=== PATIENT | male | born 1980 | race Caucasian/White ===

== ENCOUNTER 2018-09-27 19:54 | Emergency (ER) | payer OTHER, MEDICAID, SELFPAY ==
[2018-09-27 20:20] VITALS: BP 150/94; PULSE 94; RESP 18; TEMP 36.8; O2SAT 98; BMI 31.2
--- NOTE | 2018-09-27 20:23 | ED_ITS ---
HPI - General Adult General Chief complaint: Diabetic Problem Stated complaint: BLOOD SUGAR IS HIGH Time Seen by Provider: 09/27/18 20:23 Source: patient Mode of arrival: ambulatory Limitations: no limitations History of Present Illness HPI narrative: Patient is a 38-year-old male who states that he has not been dylan gnosed with diabetes however due to a family history he was been concerned about this. He has a old glucometer from a relative and he states that he checks his blood sugar on a regular basis. He states that he normally runs around 200. He states that today he started to not feel very well and he took his blood sugar it was greater than 500. He states he has never been this high. He does not h ave a primary doctor in the area. Related Data Home Medications Medication Instructions Recorded Confirmed Cinnamon 09/27/18 Vitamin D3 09/27/18 acyclovir 09/27/18 esomeprazole sodium 09/27/18 ferrous gluconate 09/27/18 lysine [L-Lysine] 2 tab 09/27/18 magnesium 09/27/18 milk thistle 09/27/18 multivit,Ca,[id number]-lut 09/27/18 [Complete Multi] Previous Rx's Medication Instructions Recorded metformin 500 mg PO BID #120 tab 09/27/18 Allergies Allergy/AdvReac Type Severity Reaction Status Date / Time No Known Drug Allergies Allergy Verified 09/27/18 20:24 Review of Systems Constitutional Reports fatigue, Denies fever(s), Denies headache(s) and Reports malaise ENT Ears, Nose, Mouth, and Throat: Denies headache(s) Cardiovascular Denies chest pain, Denies palpitations and Denies dyspnea Respiratory Denies dyspnea Gastrointestinal Gastrointestinal: Denies abdominal pain and Denies change in stool character Genitourinary Denies dysuria Musculoskeletal Denies myalgias and Denies arthralgias Integumentary/Breasts Denies rash Neurologic Denies headache(s) Endocrine Reports fatigue and Denies palpitations Hematologic/Lymphatic Denies easy bleeding and Denies easy bruising PFSH Medical History Cholecystitis without cholelithiasis (Acute) Diverticulitis (Acute) HTN (hypertension) (Acute) Hiatal hernia (Acute) Hydrocele (Acute) Liver fibrosis (Acute) NIDHI (obstructive sleep apnea) (Acute) Vertigo (Acute) Surgical History H/O hernia repair (Acute) Social History Smoking Status: Never smoker Social History Smoking Status: Never smoker Exam Initial Vital Signs Initial Vital Signs: Vital Signs Temperature 98.2 F 09/27/18 20:20 Pulse Rate 94 H 09/27/18 20:20 Respiratory Rate 18 09/27/18 20:20 Blood Pressure 150/94 H 09/27/18 20:20 Pulse Oximetry 98 09/27/18 20:20 Const General: cooperative, healthy appearing, comfortable, well developed, well groomed and No acute distress Orientation: alert, awake and oriented x3 HENMT Head: normal to inspection and normocephalic Resp Effort & Inspection: normal respiratory effort Auscultation: clear to auscultation bilaterally Cardio Rate: regular rate Rhythm: regular rhythm GI Inspection: non-distended Palpation: soft Skin Lesions: no lesions Rashes: no rashes Neuro General: alert, awake and oriented x3 Cognition: normal cognition Speech: speech normal Extrem General: normal to inspection and capillary refill normal Psych Appearance: grossly normal and well kempt Course Orders Ordered: ED Orders 09/27/18 20:45 Complete Blood Count AUTO DIFF Stat Comprehensive Metabolic Panel Stat Ketones (Beta-Hydroxybutyrate) Stat Lactate (Lactic Acid) Stat Lipase Stat Magnesium Stat Phosphorous Stat 09/27/18 20:55 Venous Blood Gas Stat Discontinued Medications Sodium Chloride (Normal Saline 0.9%) 1,000 mls @ 1,000 mls/hr IV BOLUS ONE Stop: 09/27/18 21:32 Last Infusion: 09/27/18 22:12 Dose: 0 mls/hr Admin: 09/27/18 21:24 Dose: 1,000 mls/hr Vital Signs - 8 hr 09/27/18 20:20 09/27/18 21:26 09/27/18 22:04 Temperature 98.2 F Pulse Rate 94 H 78 77 Respiratory Rate 18 18 Blood Pressure 150/94 H Blood Pressure [Right Arm] 130/87 128/79 Pulse Oximetry 98 97 Medical Decision Making Lab Data Lab results reviewed: Yes I reviewed the patient's lab results. Result diagrams: 09/27/18 20:45 09/27/18 20:45 Lab Results 09/27/18 09/27/18 09/27/18 Range/Units 20:45 20:45 20:45 WBC 5.7 (4.5-11.0) X10^3/uL RBC 5.17 (4.5-5.9) X10^6/uL Hgb 16.0 (13.5-17.5) g/dL Hct 45.7 (41-53) % MCV 88.5 (80-100) fL MCH 30.9 (26-34) PG MCHC 35.0 (30-36) % RDW 12.8 (11.6-14.8) % Plt Count 261 (150-400) X10^3/uL Neut % (Auto) 51.5 (50-75) % Lymph % (Auto) 38.7 (25-40) % [place] % (Auto) 7.0 (3-14) % Eos % (Auto) 1.8 L (2-4) % Baso % (Auto) 1.0 (0-2) % Neut # (Auto) 3000 (2949-1621) /uL Lymph # (Auto) 2200 (3404-5422) /uL [place] # (Auto) 400 (0-900) /uL Eos # (Auto) 100 (0-450) /uL Baso # (Auto) 100 (0-100) /uL VBG pH (7.33-7.43) VBG pCO2 (45-50) mmHg VBG pO2 (35-45) mmHg VBG HCO3 (23-28) mmol/L VBG Total CO2 (24-29) mmol/L VBG O2 Saturation (70-75) % VBG Base Excess (0-4) mmol/L Sodium 136 L (137-145) mmol/L Potassium 4.3 (3.4-5.1) mmol/L Chloride 100 (98-107) mmol/L Carbon Dioxide 23 (22-32) mmol/L BUN 22 H (9-20) mg/dL Creatinine 0.90 (0.66-1.25) mg/dL Estimated GFR > 60.0 (>60) mL/min BUN/Creatinine Ratio 24.4 H (6-22) Glucose 436 H (70-100) mg/dL Lactate 2.6 H (0.7-2.1) mmol/L Calcium 9.2 (8.4-10.2) mg/dL Phosphorus 4.0 (2.5-4.5) mg/dL Magnesium 2.0 (1.6-2.3) mg/dL Total Bilirubin 0.4 (0.2-1.3) mg/dL AST 21 (17-59) IU/L ALT 42 (21-72) IU/L Alkaline Phosphatase 56 (38-126) U/L Total Protein 7.6 (6.3-8.2) g/dL Albumin 4.5 (3.5-5.0) g/dL Globulin 3.1 (1.7-4.1) g/dL Albumin/Globulin Ratio 1.5 (1.0-2.8) Lipase 87 (23-300) U/L Ketones 0.11 (<0.27) mmol/L 09/27/18 Range/Units 20:55 WBC (4.5-11.0) X10^3/uL RBC (4.5-5.9) X10^6/uL Hgb (13.5-17.5) g/dL Hct (41-53) % MCV (80-100) fL MCH (26-34) PG MCHC (30-36) % RDW (11.6-14.8) % Plt Count (150-400) X10^3/uL Neut % (Auto) (50-75) % Lymph % (Auto) (25-40) % [place] % (Auto) (3-14) % Eos % (Auto) (2-4) % Baso % (Auto) (0-2) % Neut # (Auto) (4416-2098) /uL Lymph # (Auto) (4708-0152) /uL [place] # (Auto) (0-900) /uL Eos # (Auto) (0-450) /uL Baso # (Auto) (0-100) /uL VBG pH 7.39 (7.33-7.43) VBG pCO2 38.4 L (45-50) mmHg VBG pO2 47 H (35-45) mmHg VBG HCO3 23 (23-28) mmol/L VBG Total CO2 24 (24-29) mmol/L VBG O2 Saturation 82 H (70-75) % VBG Base Excess -2.0 L (0-4) mmol/L Sodium (137-145) mmol/L Potassium (3.4-5.1) mmol/L Chloride (98-107) mmol/L Carbon Dioxide (22-32) mmol/L BUN (9-20) mg/dL Creatinine (0.66-1.25) mg/dL Estimated GFR (>60) mL/min BUN/Creatinine Ratio (6-22) Glucose (70-100) mg/dL Lactate (0.7-2.1) mmol/L Calcium (8.4-10.2) mg/dL Phosphorus (2.5-4.5) mg/dL Magnesium (1.6-2.3) mg/dL Total Bilirubin (0.2-1.3) mg/dL AST (17-59) IU/L ALT (21-72) IU/L Alkaline Phosphatase (38-126) U/L Total Protein (6.3-8.2) g/dL Albumin (3.5-5.0) g/dL Globulin (1.7-4.1) g/dL Albumin/Globulin Ratio (1.0-2.8) Lipase (23-300) U/L Ketones (<0.27) mmol/L Point of Care Testing Glucose POC 405 Urine Dip Bedside Urine Glucose 1000 mg/dl Bedside Urine Bilirubin - Negative Bedside Urine Ketone - Negative Urine Specific [place] 1.020 Bedside Urine Occult Blood - Negative Bedside Urine pH 6.0 Bedside Urine Protein - Negative Bedside Urine Urobilinogen - Negative Bedside Urine Nitrite - Negative Bedside Urine Leukocytes - Negative Esterase Point of care testing: Point of Care Testing Glucose POC 405 Urine Dip Bedside Urine Glucose 1000 mg/dl Bedside Urine Bilirubin - Negative Bedside Urine Ketone - Negative Urine Specific [place] 1.020 Bedside Urine Occult Blood - Negative Bedside Urine pH 6.0 Bedside Urine Protein - Negative Bedside Urine Urobilinogen - Negative Bedside Urine Nitrite - Negative Bedside Urine Leukocytes - Negative Esterase [facility] Narrative Medical decision making narrative: Patient was hyperglycemic however no signs of DKA. Was not acidotic. PH is 7.391 on his VBG. Patient does not have a primary care doctor in the area he was given a card has a phone number on it where he can call to help with stab wishing a primary doctor. Will send home with a prescription for metformin. Informed him that he does carry the diagnosis of diabetes given his blood sugars today. Informed him that this is a diagnosis that requires follow-up with a primary doctor and is important for him to establish care. He was given return precautions. He expressed understanding and agreement with plan. Discharge Plan Departure Patient Disposition: Home Clinical Impression: Diabetes mellitus with hyperglycemia Qualifiers: Diabetes mellitus type: type 2 Diabetes mellitus correction insulin use: without correction use Qualified Code(s): E11.65 - Type 2 diabetes mellitus with hyperglycemia Discharge Date/Time: 09/27/18 22:14 Interventions: ED Discharge Assessment Last Done: 09/27/18 22:13 Instructions: DI for Diabetes Type 2 Activity Restrictions/Additional Instructions: You do need to make contact with the primary care doctor in the area. You have diabetes and this is a condition that requires regular follow-up with a primary provider. Start taking the metformin as directed. Return to the emergency department for any new or worsening symptoms Prescriptions: New metformin 500 mg tablet 500 mg PO BID Qty: 120 RF: 0 No Action magnesium 250 mg Tablet RF: 0 ferrous gluconate RF: 0 acyclovir 200 mg Capsule RF: 0 esomeprazole sodium 20 mg Recon Soln RF: 0 lysine [L-Lysine] 500 mg Tablet 2 tab RF: 0 Vitamin D3 RF: 0 milk thistle 175 mg Tablet RF: 0 Complete Multi [phone] [id number] Tablet RF: 0 Cinnamon RF: 0
[2018-09-27 20:58] LABS: Add Manual Diff / Slide Review NO; Basophils Absolute Auto 100 /uL (0-100); Eosinophils Absolute Auto 100 /uL (0-450); Eosinophils Percent Auto 1.8 % (2-4); Hematocrit 45.7 % (41-53); Lymphocytes Absolute Auto 2200 /uL (1100-4500); Lymphocytes Percent Auto 38.7 % (25-40); Mean Corpuscular Hemoglobin 30.9 PG (26-34); Mean Corpuscular Volume 88.5 fL (80-100); Monocytes Absolute Auto 400 /uL (0-900); Neutrophils Absolute Auto 3000 /uL (1500-7000); Neutrophils Percent Auto 51.5 % (50-75); Platelet Count 261 X10^3/uL (150-400); Red Blood Cell Count 5.17 X10^6/uL (4.5-5.9); Red Cell Distribution Width 12.8 % (11.6-14.8); White Blood Cell Count 5.7 X10^3/uL (4.5-11.0)
[2018-09-27 21:09] LABS: Lactate (Lactic Acid) 2.6 mmol/L (0.7-2.1)
[2018-09-27 21:11] LABS: Alanine Aminotransferase 42 IU/L (21-72); Albumin 4.5 g/dL (3.5-5.0); Albumin Globulin Ratio 1.5 (1.0-2.8); Alkaline Phosphatase 56 U/L (38-126); Aspartate Aminotransferase 21 IU/L (17-59); BUN Creatinine Ratio 24.4 (6-22); Bilirubin Total 0.4 mg/dL (0.2-1.3); Blood Urea Nitrogen 22 mg/dL (9-20); Calcium 9.2 mg/dL (8.4-10.2); Carbon Dioxide 23 mmol/L (22-32); Chloride 100 mmol/L (98-107); Estimated Glomerular Filt Rate > 60.0 mL/min (>60); Globulin 3.1 g/dL (1.7-4.1); Glucose 436 mg/dL (70-100); HEMOLYSIS 34 (0-50); Lipase 87 U/L (23-300); Potassium 4.3 mmol/L (3.4-5.1); Sodium 136 mmol/L (137-145); Total Protein 7.6 g/dL (6.3-8.2)
[2018-09-27 21:13] LABS: Ketones (Beta-Hydroxybutyrate) 0.11 mmol/L (<0.27)
[2018-09-27 21:14] LABS: HCO3 VBG 23 mmol/L (23-28); PCO2 VBG 38.4 mmHg (45-50); PO2 VBG 47 mmHg (35-45); Total CO2 VBG 24 mmol/L (24-29); pH VBG 7.39 (7.33-7.43)
[2018-09-27 21:15] LABS: Oxygen Saturation VBG 82 % (70-75)
[2018-09-27] MEDS: SODIUM CHLORIDE 0.9% 1,000 ML 1000 ML IV (21:24)
[2018-09-27 21:26] VITALS: BP 130/87; PULSE 78
[2018-09-27 22:04] VITALS: BP 128/79; PULSE 77; RESP 18; O2SAT 97
[2018-09-28 00:54] LABS: Reflexed Lactate in 2 Hours Y
== END 2018-09-27 22:14 | disposition home or self-care (01) ==
PROVIDERS: Emergency Provider Emergency Medicine
DX: E11.65 Type 2 diabetes mellitus with hyperglycemia (principal)
CPT/HCPCS: 36591; 80053; 81003; 82009; 82805; 82962; 83605; 83690; 83735; 84100; 85025; 96360; 99283; 99284

== ENCOUNTER 2018-11-29 00:41 | Emergency (ER) | payer SELFPAY ==
[2018-11-29 00:50] VITALS: BP 166/109; PULSE 72; RESP 18; O2SAT 99; BMI 30.8
--- NOTE | 2018-11-29 01:00 | DI.US.S_ITS ---
PROCEDURE: US ABDOMEN COMPLETE INDICATIONS: SEVERE EPIGASTRIC PAIN TECHNIQUE: Real-time scanning was performed of the abdominal and retroperitoneal organs, with image documentation. COMPARISON: [facility], CT, CT ABDOMEN PELVIS W CON, 11/29/2018, 1:32. FINDINGS: Liver: Liver is mildly enlarged measuring 22.5 cm in long axis. Liver has a diffusely increased echotexture which typically represents fatty infiltration; however, finding is nonspecific and other etiologies including hepatic cirrhosis can have a similar appearance. Please correlate with clinical and laboratory findings. There is a 5.1 x 4.2 x 5.5 cm complex lesion with internal vascularity in the left lobe of the liver which may represent a hemangioma. Small 1.3 x 1.3 x 1.5 cm probable cysts noted in the right lower liver. Gallbladder: Small gallstones are noted.. No gallbladder wall thickening. No pericholecystic fluid. No sonographic Vazquez sign. Biliary ducts: Intrahepatic bile ducts are non-dilated. Extrahepatic bile duct caliber measures 4.3 mm. Normal is 6-7 mm or less in diameter, or 10 mm or less post-cholecystectomy. Pancreas: Visualized portions of the pancreas are sonographically normal. Spleen: Spleen is normal in size and homogeneous in echotexture. Kidneys: Kidneys are normal in size and echotexture. Right kidney measures 12.2 cm long; left kidney measures 13.1 cm long. No hydronephrosis or nephrolithiasis. No solid masses. Aorta: Visualized aorta is normal in caliber at less than 3 cm. Iliacs: Proximal common iliac arteries are normal in caliber at less than 2.5 cm. IVC: Intrahepatic inferior vena cava is patent. Miscellaneous: No free abdominal fluid. IMPRESSION: 1. Hepatomegaly with hepatic steatosis. 2. Cholelithiasis without sonographic evidence of cholecystitis. 3. Bilateral 1 x 4.2 x 5.5 cm probable left hepatic hemangioma. Dictated by: Megan Lam MD, PhD on 11/29/2018 at 9:09 Approved by: Megan Lam MD, PhD on 11/29/2018 at 9:13
--- NOTE | 2018-11-29 01:04 | ED.ABDPAIN ---
HPI - Abdominal Pain General Chief Complaint: Abdominal Pain Stated Complaint: states chest pain Time Seen by Provider: 11/29/18 00:52 Source: patient and family Mode of arrival: ambulatory Limitations: no limitations History of Present Illness HPI narrative: 38-year-old male nonsmoker presents with his in the chief complaint of severe epigastric pain with radiation to his back. He has nausea but denies any vomiting. He has had no fever or chills. He does have a history gallbladder disease. He denies any alcohol or street drugs. His last oral intake was 2 hours prior to his arrival. His pain is worse with motion and improves with rest. MD complaint: abdominal pain Onset (ago): hour(s) Pain Consistency: constant Location: RUQ and epigastric Severity: severe Quality: stabbing and aching Radiation: back Relieving factors: nothing Exacerbating factors: nothing Associated symptoms: nausea Related Data Home Medications Medication Instructions Recorded Confirmed Cinnamon 09/27/18 Vitamin D3 09/27/18 acyclovir 09/27/18 esomeprazole sodium 09/27/18 ferrous gluconate 09/27/18 lysine [L-Lysine] 2 tab 09/27/18 magnesium 09/27/18 milk thistle 09/27/18 multivit,Ca,[id number]-lut 09/27/18 [Complete Multi] Previous Rx's Medication Instructions Recorded metformin 500 mg PO BID #120 tab 09/27/18 hydrocodone-acetaminophen 1 tab PO Q4-6H PRN #10 tab 11/29/18 Allergies Allergy/AdvReac Type Severity Reaction Status Date / Time No Known Drug Allergies Allergy Verified 09/27/18 20:24 Review of Systems Constitutional Denies chills, Denies fever(s), Denies lethargy and Denies weakness Eyes Denies change in vision, Denies eye discharge, Denies irritation and Denies loss of vision ENT Ears, Nose, Mouth, and Throat: Denies change in voice, Denies neck pain and Denies sore throat Cardiovascular Denies chest pain, Denies irregular heart rhythm, Denies lightheadedness, Denies palpitations, Denies dyspnea, Denies dyspnea on exertion and Denies orthopnea Respiratory Denies cough, Denies dyspnea, Denies dyspnea on exertion and Denies wheezing Gastrointestinal Gastrointestinal: Reports abdominal pain, Denies change in bowel habits, Denies diarrhea, Denies nausea and Denies vomiting Genitourinary Denies hematuria, Denies flank pain, Denies urinary incontinence and Denies urinary urgency Musculoskeletal Denies neck pain Integumentary/Breasts Denies pruritus, Denies erythema, Denies rash and Denies wounds Neurologic Denies confusion, Denies loss of vision and Denies weakness Psychiatric Denies anxiety, Denies confusion, Denies depression, Denies homicidal ideation and Denies suicidal ideation Endocrine Denies palpitations Hematologic/Lymphatic Denies easy bruising Allergic/Immunologic Denies wheezing [facility] Medical History Cholecystitis without cholelithiasis (Acute) Diverticulitis (Acute) HTN (hypertension) (Acute) Hiatal hernia (Acute) Hydrocele (Acute) Liver fibrosis (Acute) NIDHI (obstructive sleep apnea) (Acute) Vertigo (Acute) Surgical History H/O hernia repair (Acute) Social History Smoking Status: Never smoker Social History Smoking Status: Never smoker Exam Narrative Exam Narrative: GENERAL: This is a well-nourished, well-developed patient, in mild distress. HEAD: Atraumatic. Normocephalic. No temporal or scalp tenderness. EYES: Pupils equal round and reactive. Extraocular motions intact. No scleral icterus. No injection or drainage. ENT: Nose without bleeding, purulent drainage or septal hematoma. Throat without erythema, tonsillar hypertrophy or exudate. Uvula midline. Airway patent. NECK: Trachea midline. No JVD or lymphadenopathy. Supple, nontender, no meningeal signs. CARDIOVASCULAR: Regular rate and rhythm without murmurs, gallops, or rubs. RESPIRATORY: Clear to auscultation. Breath sounds equal bilaterally. No wheezes, rales, or rhonchi. GASTROINTESTINAL: Abdomen soft, severe epigastric pain, nondistended. No hepato-splenomegaly, or palpable masses. No guarding. EXTREMITIES: No clubbing, cyanosis, or edema. No joint tenderness, effusion, or edema noted. BACK: Nontender without deformity or crepitance. No flank tenderness. NEURO: AOx3. SKIN: No rash or erythema. Initial Vital Signs Initial Vital Signs: Vital Signs Pulse Rate 72 11/29/18 00:50 Respiratory Rate 18 11/29/18 00:50 Blood Pressure 166/109 H 11/29/18 00:50 Pulse Oximetry 99 11/29/18 00:50 Course Orders Ordered: ED Orders 11/29/18 EKG-12 Lead Stat 11/29/18 00:53 Complete Blood Count AUTO DIFF Stat Comprehensive Metabolic Panel Stat Lipase Stat Troponin & CK Cardiac Panel Stat 11/29/18 01:00 US abdomen complete Stat 11/29/18 01:24 CT abdomen pelvis w con Stat 11/29/18 03:13 Troponin I Stat Sodium Chloride (Normal Saline 0.9%) 1,000 mls @ 150 mls/hr IV CONT ADIS Last Admin: 11/29/18 01:17 Dose: 150 mls/hr Discontinued Medications Hydrocodone Bitart/Acetaminophen (Vicodin Prepack) 1 bottle MISC SEEINSTR ONE Stop: 11/29/18 04:43 Al Hydrox/Mg Hydrox/Simethicone 20 ml/ Lidocaine HCl 15 ml 0 ml PO NOW ONE Stop: 11/29/18 02:57 Last Admin: 11/29/18 03:17 Dose: 35 ml Hydromorphone HCl (Dilaudid) 1 mg IV Q15M PRN PRN Reason: Pain, Severe (7-10) Last Admin: 11/29/18 03:17 Dose: 1 mg Admin: 11/29/18 01:17 Dose: 1 mg Ondansetron HCl (Zofran) 4 mg IV NOW ONE Stop: 11/29/18 00:53 Last Admin: 11/29/18 01:16 Dose: 4 mg Pantoprazole Sodium (Protonix) 40 mg IV NOW ONE Stop: 11/29/18 00:53 Last Admin: 11/29/18 01:17 Dose: 40 mg Pantoprazole Sodium (Protonix) 40 mg IV NOW ONE Stop: 11/29/18 02:57 Last Admin: 11/29/18 04:21 Dose: Not Given Vital Signs - 8 hr 11/29/18 00:50 11/29/18 02:26 11/29/18 03:31 Pulse Rate 72 51 L 81 Respiratory Rate 18 18 19 Blood Pressure 166/109 H Blood Pressure [Left Arm] 131/85 135/86 Pulse Oximetry 99 96 97 11/29/18 04:42 Pulse Rate 66 Respiratory Rate 13 Blood Pressure Blood Pressure [Left Arm] 123/80 Pulse Oximetry 98 MDM - Abdominal Pain Medical Records Attestation: I reviewed the patient's medical records. Lab Data Attestation: I reviewed the patient's lab results. Result diagrams: 11/29/18 00:53 11/29/18 00:53 Lab Results 11/29/18 11/29/18 11/29/18 Range/Units 00:53 00:53 00:53 WBC 6.8 (4.5-11.0) X10^3/uL RBC 4.92 (4.5-5.9) X10^6/uL Hgb 15.6 (13.5-17.5) g/dL Hct 43.5 (41-53) % MCV 88.3 (80-100) fL MCH 31.7 (26-34) PG MCHC 35.9 (30-36) % RDW 12.9 (11.6-14.8) % Plt Count 294 (150-400) X10^3/uL Neut % (Auto) 51.9 (50-75) % Lymph % (Auto) 36.0 (25-40) % [place] % (Auto) 8.6 (3-14) % Eos % (Auto) 2.6 (2-4) % Baso % (Auto) 0.9 (0-2) % Neut # (Auto) 3500 (9961-8202) /uL Lymph # (Auto) 2500 (2053-3633) /uL [place] # (Auto) 600 (0-900) /uL Eos # (Auto) 200 (0-450) /uL Baso # (Auto) 100 (0-100) /uL Sodium 138 (137-145) mmol/L Potassium 4.4 (3.4-5.1) mmol/L Chloride 103 (98-107) mmol/L Carbon Dioxide 24 (22-32) mmol/L BUN 16 (9-20) mg/dL Creatinine 1.00 (0.66-1.25) mg/dL Estimated GFR > 60.0 (>60) mL/min BUN/Creatinine Ratio 16.0 (6-22) Glucose 245 H (70-100) mg/dL Calcium 9.4 (8.4-10.2) mg/dL Total Bilirubin 0.4 (0.2-1.3) mg/dL AST 25 (17-59) IU/L ALT 53 (21-72) IU/L Alkaline Phosphatase 59 (38-126) U/L Total Creatine Kinase 72 (55-170) U/L CK-MB (CK-2) TNP CK-MB (CK-2) Rel Index TNP Troponin I < 0.012 (0.01-0.034) ng/mL Total Protein 7.4 (6.3-8.2) g/dL Albumin 4.5 (3.5-5.0) g/dL Globulin 2.9 (1.7-4.1) g/dL Albumin/Globulin Ratio 1.6 (1.0-2.8) Lipase 85 (23-300) U/L 11/29/18 Range/Units 03:13 WBC (4.5-11.0) X10^3/uL RBC (4.5-5.9) X10^6/uL Hgb (13.5-17.5) g/dL Hct (41-53) % MCV (80-100) fL MCH (26-34) PG MCHC (30-36) % RDW (11.6-14.8) % Plt Count (150-400) X10^3/uL Neut % (Auto) (50-75) % Lymph % (Auto) (25-40) % [place] % (Auto) (3-14) % Eos % (Auto) (2-4) % Baso % (Auto) (0-2) % Neut # (Auto) (4434-0662) /uL Lymph # (Auto) (7466-9838) /uL [place] # (Auto) (0-900) /uL Eos # (Auto) (0-450) /uL Baso # (Auto) (0-100) /uL Sodium (137-145) mmol/L Potassium (3.4-5.1) mmol/L Chloride (98-107) mmol/L Carbon Dioxide (22-32) mmol/L BUN (9-20) mg/dL Creatinine (0.66-1.25) mg/dL Estimated GFR (>60) mL/min BUN/Creatinine Ratio (6-22) Glucose (70-100) mg/dL Calcium (8.4-10.2) mg/dL Total Bilirubin (0.2-1.3) mg/dL AST (17-59) IU/L ALT (21-72) IU/L Alkaline Phosphatase (38-126) U/L Total Creatine Kinase (55-170) U/L CK-MB (CK-2) CK-MB (CK-2) Rel Index Troponin I < 0.012 (0.01-0.034) ng/mL Total Protein (6.3-8.2) g/dL Albumin (3.5-5.0) g/dL Globulin (1.7-4.1) g/dL Albumin/Globulin Ratio (1.0-2.8) Lipase (23-300) U/L Imaging Data US - abdomen: Radiologist's impression: Left lobe liver lesion, complex and heterogenous. Cholelithiasis without evidence of biliary obstruction CT scan - abdomen: Radiologist's impression: Left lobe liver lesion has the appearance of a benign hemangioma, patted could stay ptosis, no acute abdominal pelvic pathology identified MDM Narrative Medical decision making narrative: 38-year-old male with sudden epigastric and right upper quadrant pain and radiation to his back. Significant pain on palpation, ultrasound shows cholelithiasis but no signs of infection. Left lobe liver lesion again seen on CT thought to be a benign hemangioma. Labs unremarkable. Discharge Plan Departure Patient Disposition: Home Clinical Impression: Abdominal pain, acute, epigastric Activity Restrictions/Additional Instructions: *You have been diagnosed with [acute epigastric pain, biliary colic versus esophageal spasm] *What to do: *Take medications as directed *Follow up with your primary care provider in 2-3 days, call for an appointment. Let them know you were seen in the Emergency Department and that we ask that you be seen in follow up *Return to ER if you should have any new, worsening or concerning symptoms Prescriptions: New hydrocodone-acetaminophen 5-325 mg tablet 1 tab PO Q4-6H PRN (Reason: pain) Qty: 10 RF: 0 No Action magnesium 250 mg Tablet RF: 0 ferrous gluconate RF: 0 acyclovir 200 mg Capsule RF: 0 esomeprazole sodium 20 mg Recon Soln RF: 0 lysine [L-Lysine] 500 mg Tablet 2 tab RF: 0 Vitamin D3 RF: 0 milk thistle 175 mg Tablet RF: 0 Complete Multi [phone] [id number] Tablet RF: 0 Cinnamon RF: 0 metformin 500 mg tablet 500 mg PO BID Qty: 120 RF: 0
[2018-11-29 01:07] LABS: Add Manual Diff / Slide Review NO; Basophils Absolute Auto 100 /uL (0-100); Basophils Percent Auto 0.9 % (0-2); Eosinophils Absolute Auto 200 /uL (0-450); Eosinophils Percent Auto 2.6 % (2-4); Hematocrit 43.5 % (41-53); Hemoglobin 15.6 g/dL (13.5-17.5); Lymphocytes Absolute Auto 2500 /uL (1100-4500); Mean Corpuscular HGB Conc 35.9 % (30-36); Mean Corpuscular Hemoglobin 31.7 PG (26-34); Mean Corpuscular Volume 88.3 fL (80-100); Monocytes Absolute Auto 600 /uL (0-900); Monocytes Percent Auto 8.6 % (3-14); Neutrophils Absolute Auto 3500 /uL (1500-7000); Neutrophils Percent Auto 51.9 % (50-75); Platelet Count 294 X10^3/uL (150-400); Red Blood Cell Count 4.92 X10^6/uL (4.5-5.9); Red Cell Distribution Width 12.9 % (11.6-14.8); White Blood Cell Count 6.8 X10^3/uL (4.5-11.0)
--- NOTE | 2018-11-29 01:07 | ED_ITS ---
HPI - Abdominal Pain General Chief Complaint: Abdominal Pain Stated Complaint: states chest pain Time Seen by Provider: 11/29/18 00:52 Source: patient and family Mode of arrival: ambulatory Limitations: no limitations History of Present Illness HPI narrative: 38-year-old male nonsmoker presents with his in the chief complaint of severe epigastric pain with radiation to his back. He has nausea but denies any vomiting. He has had no fever or chills. He does have a history gallbladder disease. He denies any alcohol or street drugs. His last oral intake was 2 hours prior to his arrival. His pain is worse with motion and improves with rest. MD complaint: abdominal pain Onset (ago): hour(s) Pain Consistency: constant Location: RUQ and epigastric Severity: severe Quality: stabbing and aching Radiation: back Relieving factors: nothing Exacerbating factors: nothing Associated symptoms: nausea Related Data Home Medications Medication Instructions Recorded Confirmed Cinnamon 09/27/18 Vitamin D3 09/27/18 acyclovir 09/27/18 esomeprazole sodium 09/27/18 ferrous gluconate 09/27/18 lysine [L-Lysine] 2 tab 09/27/18 magnesium 09/27/18 milk thistle 09/27/18 multivit,Ca,faxl-BC-wlvtey-lut 09/27/18 [Complete Multi] Previous Rx's Medication Instructions Recorded metformin 500 mg PO BID #120 tab 09/27/18 hydrocodone-acetaminophen 1 tab PO Q4-6H PRN #10 tab 11/29/18 Allergies Allergy/AdvReac Type Severity Reaction Status Date / Time No Known Drug Allergies Allergy Verified 09/27/18 20:24 Review of Systems Constitutional Denies chills, Denies fever(s), Denies lethargy and Denies weakness Eyes Denies change in vision, Denies eye discharge, Denies irritation and Denies loss of vision ENT Ears, Nose, Mouth, and Throat: Denies change in voice, Denies neck pain and Denies sore throat Cardiovascular Denies chest pain, Denies irregular heart rhythm, Denies lightheadedness, Denies palpitations, Denies dyspnea, Denies dyspnea on exertion and Denies orthopnea Respiratory Denies cough, Denies dyspnea, Denies dyspnea on exertion and Denies wheezing Gastrointestinal Gastrointestinal: Reports abdominal pain, Denies change in bowel habits, Denies diarrhea, Denies nausea and Denies vomiting Genitourinary Denies hematuria, Denies flank pain, Denies urinary incontinence and Denies urinary urgency Musculoskeletal Denies neck pain Integumentary/Breasts Denies pruritus, Denies erythema, Denies rash and Denies wounds Neurologic Denies confusion, Denies loss of vision and Denies weakness Psychiatric Denies anxiety, Denies confusion, Denies depression, Denies homicidal ideation and Denies suicidal ideation Endocrine Denies palpitations Hematologic/Lymphatic Denies easy bruising Allergic/Immunologic Denies wheezing [facility] Medical History Cholecystitis without cholelithiasis (Acute) Diverticulitis (Acute) HTN (hypertension) (Acute) Hiatal hernia (Acute) Hydrocele (Acute) Liver fibrosis (Acute) NIDHI (obstructive sleep apnea) (Acute) Vertigo (Acute) Surgical History H/O hernia repair (Acute) Social History Smoking Status: Never smoker Social History Smoking Status: Never smoker Exam Narrative Exam Narrative: GENERAL: This is a well-nourished, well-developed patient, in mild distress. HEAD: Atraumatic. Normocephalic. No temporal or scalp tenderness. EYES: Pupils equal round and reactive. Extraocular motions intact. No scleral icterus. No injection or drainage. ENT: Nose without bleeding, purulent drainage or septal hematoma. Throat without erythema, tonsillar hypertrophy or exudate. Uvula midline. Airway patent. NECK: Trachea midline. No JVD or lymphadenopathy. Supple, nontender, no meningeal signs. CARDIOVASCULAR: Regular rate and rhythm without murmurs, gallops, or rubs. RESPIRATORY: Clear to auscultation. Breath sounds equal bilaterally. No wheezes, rales, or rhonchi. GASTROINTESTINAL: Abdomen soft, severe epigastric pain, nondistended. No hepato- splenomegaly, or palpable masses. No guarding. EXTREMITIES: No clubbing, cyanosis, or edema. No joint tenderness, effusion, or edema noted. BACK: Nontender without deformity or crepitance. No flank tenderness. NEURO: AOx3. SKIN: No rash or erythema. Initial Vital Signs Initial Vital Signs: Vital Signs Pulse Rate 72 11/29/18 00:50 Respiratory Rate 18 11/29/18 00:50 Blood Pressure 166/109 H 11/29/18 00:50 Pulse Oximetry 99 11/29/18 00:50 Course Orders Ordered: ED Orders 11/29/18 EKG-12 Lead Stat 11/29/18 00:53 Complete Blood Count AUTO DIFF Stat Comprehensive Metabolic Panel Stat Lipase Stat Troponin & CK Cardiac Panel Stat 11/29/18 01:00 US abdomen complete Stat 11/29/18 01:24 CT abdomen pelvis w con Stat 11/29/18 03:13 Troponin I Stat Sodium Chloride (Normal Saline 0.9%) 1,000 mls @ 150 mls/hr IV CONT ADIS Last Admin: 11/29/18 01:17 Dose: 150 mls/hr Discontinued Medications Hydrocodone Bitart/Acetaminophen (Vicodin Prepack) 1 bottle MISC SEEINSTR ONE Stop: 11/29/18 04:43 Al Hydrox/Mg Hydrox/Simethicone 20 ml/ Lidocaine HCl 15 ml 0 ml PO NOW ONE Stop: 11/29/18 02:57 Last Admin: 11/29/18 03:17 Dose: 35 ml Hydromorphone HCl (Dilaudid) 1 mg IV Q15M PRN PRN Reason: Pain, Severe (7-10) Last Admin: 11/29/18 03:17 Dose: 1 mg Admin: 11/29/18 01:17 Dose: 1 mg Ondansetron HCl (Zofran) 4 mg IV NOW ONE Stop: 11/29/18 00:53 Last Admin: 11/29/18 01:16 Dose: 4 mg Pantoprazole Sodium (Protonix) 40 mg IV NOW ONE Stop: 11/29/18 00:53 Last Admin: 11/29/18 01:17 Dose: 40 mg Pantoprazole Sodium (Protonix) 40 mg IV NOW ONE Stop: 11/29/18 02:57 Last Admin: 11/29/18 04:21 Dose: Not Given Vital Signs - 8 hr 11/29/18 00:50 11/29/18 02:26 11/29/18 03:31 Pulse Rate 72 51 L 81 Respiratory Rate 18 18 19 Blood Pressure 166/109 H Blood Pressure [Left Arm] 131/85 135/86 Pulse Oximetry 99 96 97 11/29/18 04:42 Pulse Rate 66 Respiratory Rate 13 Blood Pressure Blood Pressure [Left Arm] 123/80 Pulse Oximetry 98 MDM - Abdominal Pain Medical Records Attestation: I reviewed the patient's medical records. Lab Data Attestation: I reviewed the patient's lab results. Result diagrams: 11/29/18 00:53 11/29/18 00:53 Lab Results 11/29/18 11/29/18 11/29/18 Range/Units 00:53 00:53 00:53 WBC 6.8 (4.5-11.0) X10^3/uL RBC 4.92 (4.5-5.9) X10^6/uL Hgb 15.6 (13.5-17.5) g/dL Hct 43.5 (41-53) % MCV 88.3 (80-100) fL MCH 31.7 (26-34) PG MCHC 35.9 (30-36) % RDW 12.9 (11.6-14.8) % Plt Count 294 (150-400) X10^3/uL Neut % (Auto) 51.9 (50-75) % Lymph % (Auto) 36.0 (25-40) % [place] % (Auto) 8.6 (3-14) % Eos % (Auto) 2.6 (2-4) % Baso % (Auto) 0.9 (0-2) % Neut # (Auto) 3500 (4344-2232) /uL Lymph # (Auto) 2500 (6284-0465) /uL [place] # (Auto) 600 (0-900) /uL Eos # (Auto) 200 (0-450) /uL Baso # (Auto) 100 (0-100) /uL Sodium 138 (137-145) mmol/L Potassium 4.4 (3.4-5.1) mmol/L Chloride 103 (98-107) mmol/L Carbon Dioxide 24 (22-32) mmol/L BUN 16 (9-20) mg/dL Creatinine 1.00 (0.66-1.25) mg/dL Estimated GFR > 60.0 (>60) mL/min BUN/Creatinine Ratio 16.0 (6-22) Glucose 245 H (70-100) mg/dL Calcium 9.4 (8.4-10.2) mg/dL Total Bilirubin 0.4 (0.2-1.3) mg/dL AST 25 (17-59) IU/L ALT 53 (21-72) IU/L Alkaline Phosphatase 59 (38-126) U/L Total Creatine Kinase 72 (55-170) U/L CK-MB (CK-2) TNP CK-MB (CK-2) Rel Index TNP Troponin I < 0.012 (0.01-0.034) ng/mL Total Protein 7.4 (6.3-8.2) g/dL Albumin 4.5 (3.5-5.0) g/dL Globulin 2.9 (1.7-4.1) g/dL Albumin/Globulin Ratio 1.6 (1.0-2.8) Lipase 85 (23-300) U/L 11/29/18 Range/Units 03:13 WBC (4.5-11.0) X10^3/uL RBC (4.5-5.9) X10^6/uL Hgb (13.5-17.5) g/dL Hct (41-53) % MCV (80-100) fL MCH (26-34) PG MCHC (30-36) % RDW (11.6-14.8) % Plt Count (150-400) X10^3/uL Neut % (Auto) (50-75) % Lymph % (Auto) (25-40) % [place] % (Auto) (3-14) % Eos % (Auto) (2-4) % Baso % (Auto) (0-2) % Neut # (Auto) (9642-3307) /uL Lymph # (Auto) (2936-0855) /uL [place] # (Auto) (0-900) /uL Eos # (Auto) (0-450) /uL Baso # (Auto) (0-100) /uL Sodium (137-145) mmol/L Potassium (3.4-5.1) mmol/L Chloride (98-107) mmol/L Carbon Dioxide (22-32) mmol/L BUN (9-20) mg/dL Creatinine (0.66-1.25) mg/dL Estimated GFR (>60) mL/min BUN/Creatinine Ratio (6-22) Glucose (70-100) mg/dL Calcium (8.4-10.2) mg/dL Total Bilirubin (0.2-1.3) mg/dL AST (17-59) IU/L ALT (21-72) IU/L Alkaline Phosphatase (38-126) U/L Total Creatine Kinase (55-170) U/L CK-MB (CK-2) CK-MB (CK-2) Rel Index Troponin I < 0.012 (0.01-0.034) ng/mL Total Protein (6.3-8.2) g/dL Albumin (3.5-5.0) g/dL Globulin (1.7-4.1) g/dL Albumin/Globulin Ratio (1.0-2.8) Lipase (23-300) U/L Imaging Data US - abdomen: Radiologist's impression: Left lobe liver lesion, complex and heterogenous. Cholelithiasis without evidence of biliary obstruction CT scan - abdomen: Radiologist's impression: Left lobe liver lesion has the appearance of a benign hemangioma, patted could stay ptosis, no acute abdominal pelvic pathology identified MDM Narrative Medical decision making narrative: 38-year-old male with sudden epigastric and right upper quadrant pain and radiation to his back. Significant pain on palpation, ultrasound shows cholelithiasis but no signs of infection. Left lobe liver lesion again seen on CT thought to be a benign hemangioma. Labs unremarkable. Discharge Plan Departure Patient Disposition: Home Clinical Impression: Abdominal pain, acute, epigastric Activity Restrictions/Additional Instructions: *You have been diagnosed with [acute epigastric pain, biliary colic versus esophageal spasm] *What to do: *Take medications as directed *Follow up with your primary care provider in 2-3 days, call for an appointment. Let them know you were seen in the Emergency Department and that we ask that you be seen in follow up *Return to ER if you should have any new, worsening or concerning symptoms Prescriptions: New hydrocodone-acetaminophen 5-325 mg tablet 1 tab PO Q4-6H PRN (Reason: pain) Qty: 10 RF: 0 No Action magnesium 250 mg Tablet RF: 0 ferrous gluconate RF: 0 acyclovir 200 mg Capsule RF: 0 esomeprazole sodium 20 mg Recon Soln RF: 0 lysine [L-Lysine] 500 mg Tablet 2 tab RF: 0 Vitamin D3 RF: 0 milk thistle 175 mg Tablet RF: 0 Complete Multi [id number] Tablet RF: 0 Cinnamon RF: 0 metformin 500 mg tablet 500 mg PO BID Qty: 120 RF: 0
[2018-11-29 01:12] LABS: Alanine Aminotransferase 53 IU/L (21-72); Albumin 4.5 g/dL (3.5-5.0); Albumin Globulin Ratio 1.6 (1.0-2.8); Alkaline Phosphatase 59 U/L (38-126); Aspartate Aminotransferase 25 IU/L (17-59); Bilirubin Total 0.4 mg/dL (0.2-1.3); Blood Urea Nitrogen 16 mg/dL (9-20); Calcium 9.4 mg/dL (8.4-10.2); Carbon Dioxide 24 mmol/L (22-32); Chloride 103 mmol/L (98-107); Estimated Glomerular Filt Rate > 60.0 mL/min (>60); Globulin 2.9 g/dL (1.7-4.1); Glucose 245 mg/dL (70-100); HEMOLYSIS 19 (0-50); Lipase 85 U/L (23-300); Potassium 4.4 mmol/L (3.4-5.1); Sodium 138 mmol/L (137-145); Total Protein 7.4 g/dL (6.3-8.2)
[2018-11-29] MEDS: ONDANSETRON 4 MG/2 ML INJ IV (01:16)
[2018-11-29] MEDS: PANTOPRAZOLE 40 MG VIAL IV (01:17)
[2018-11-29] MEDS: SODIUM CHLORIDE 0.9% 1,000 ML 150 ML IV (01:17)
[2018-11-29] MEDS: HYDROMORPHONE 1 MG INJ IV ×2 (01:17→03:17)
--- NOTE | 2018-11-29 01:24 | DI.CT.S_ITS ---
PROCEDURE: CT ABDOMEN PELVIS W CON INDICATIONS: severe abdominal pain, abnormal US TECHNIQUE: After the administration of intravenous contrast, 5 mm thick sections acquired from the diaphragm to the symphysis. 5 mm coronal and sagittal reformats were acquired. For radiation dose reduction, the following was used: automated exposure control, adjustment of mA and/or kV according to patient size. COMPARISON: [facility], US, US ABDOMEN COMPLETE, 11/29/2018, 0:58. FINDINGS: Image quality: Excellent. ABDOMEN: Lung bases: Lung bases are clear. Heart size is normal. Solid organs: Liver is normal in size. 5 cm hemangioma is noted in the lateral segment of the liver. Diffuse fatty infiltration of the liver. Gallbladder is within normal limits. Biliary system is non dilated. Pancreas enhances normally. Spleen is normal in size and enhancement. No adrenal nodules. Kidneys demonstrate normal size and enhancement, without hydronephrosis. A 1 mm nonobstructing stones noted in the lower pole of the left kidney. Peritoneum and bowel: Bowel loops demonstrate normal wall thickness and caliber. No free fluid or air. The appendix is normal. Nodes and vessels: No retroperitoneal or mesenteric adenopathy by size criteria. Aorta and inferior vena cava are normal in size. Miscellaneous: No ventral hernias. PELVIS: Genitourinary: Bladder wall thickness is normal. Miscellaneous: No inguinal hernias or adenopathy. Bones: No suspicious bony lesions. No vertebral body compression fractures. IMPRESSION: 1. Hepatic hemangioma noted in the left lobe. Lesion corresponds to abnormality identified by recent abdominal ultrasound. 2. Hepatic steatosis. 3. No acute disease process. Dictated by: Megan Lam MD, PhD on 11/29/2018 at 8:56 Approved by: Megan Lam MD, PhD on 11/29/2018 at 9:01
[2018-11-29 02:26] VITALS: BP 131/85; PULSE 51; RESP 18; O2SAT 96
[2018-11-29 03:07] LABS: Creatine Kinase 72 U/L (55-170)
[2018-11-29] MEDS: MAG HYDROX/ALUMINUM/SIMETH SUS 20 ML, LIDOCAINE VISCOUS 2% 15 ML PO (03:17)
[2018-11-29 03:20] LABS: Troponin I < 0.012 ng/mL (0.01-0.034)
[2018-11-29 03:31] VITALS: BP 135/86; PULSE 81; RESP 19; O2SAT 97
[2018-11-29 03:46] LABS: Troponin I < 0.012 ng/mL (0.01-0.034)
[2018-11-29 04:42] VITALS: BP 123/80; PULSE 66; RESP 13; O2SAT 98
[2018-11-29] MEDS: HYDROCODONE/ACET 5/325 PREPACK 1 BOTTLE MISC (04:55)
== END 2018-11-29 05:00 | disposition home or self-care (01) ==
PROVIDERS: Emergency Provider Emergency Medicine
DX: R10.13 Epigastric pain (principal); R11.0 Nausea; M54.9 Dorsalgia, unspecified; R10.11 Right upper quadrant pain
CPT/HCPCS: 36591; 74177; 76700; 80053; 82550; 83690; 84484; 85025; 93005; 96361; 96374; 96375; 96376; 99283; 99285; C9113; J1170; J2405; Q9967

== ENCOUNTER 2019-04-07 08:29 | Emergency (ER) | payer OTHER, SELFPAY ==
[2019-04-07 08:41] VITALS: BP 155/92; PULSE 66; RESP 14; O2SAT 99
[2019-04-07 08:52] LABS: Add Manual Diff / Slide Review NO; Basophils Absolute Auto 100 /uL (0-100); Basophils Percent Auto 0.9 % (0-2); Eosinophils Absolute Auto 100 /uL (0-450); Eosinophils Percent Auto 1.6 % (2-4); Hemoglobin 15.7 g/dL (13.5-17.5); Lymphocytes Absolute Auto 2100 /uL (1100-4500); Lymphocytes Percent Auto 28.1 % (25-40); Mean Corpuscular HGB Conc 34.9 % (30-36); Mean Corpuscular Volume 88.8 fL (80-100); Monocytes Absolute Auto 700 /uL (0-900); Neutrophils Absolute Auto 4400 /uL (1500-7000); Neutrophils Percent Auto 60.4 % (50-75); Platelet Count 298 X10^3/uL (150-400); Red Blood Cell Count 5.07 X10^6/uL (4.5-5.9); Red Cell Distribution Width 13.1 % (11.6-14.8); White Blood Cell Count 7.4 X10^3/uL (4.5-11.0)
[2019-04-07 08:59] LABS: Prothrombin Time 11.1 SECONDS (10.1-12.7)
--- NOTE | 2019-04-07 08:59 | ED.CHESTPAIN ---
HPI - Chest Pain General Chief Complaint: Abdominal Pain Stated Complaint: chest pain/abd pain/nausea today Time Seen by Provider: 04/07/19 08:40 Source: patient Mode of arrival: ambulatory Limitations: no limitations History of Present Illness HPI narrative: Who presents with right upper quadrant pain epigastric pain radiating to his chest. He says he says problems with his gallbladder in the past. This started around 5:00 a.m. at 7:00 a.m. it got significantly worse and started going through his chest. He feels nauseous he has not thrown up. He has had issues like this in the past due to insurance issues he has not yet had a cholecystectomy. He denies any shortness of breath. Related Data Home Medications Medication Instructions Recorded Confirmed acyclovir 200 mg PO DIRECTED PRN 09/27/18 04/07/19 cholecalciferol (vitamin D3) 1,000 unit PO DAILY 09/27/18 04/07/19 [Vitamin D3] lysine [L-Lysine] 2 tab PO PRN PRN 09/27/18 04/07/19 multivit,Ca,dlqx-LO-qgydiq-lut 1 tab PO DAILY 09/27/18 04/07/19 [Complete Multi] Berberine 1 dose PO DIRECTED PRN 04/07/19 04/07/19 esomeprazole magnesium 20 mg PO DAILY 04/07/19 04/07/19 Allergies Allergy/AdvReac Type Severity Reaction Status Date / Time No Known Drug Allergies Allergy Verified 09/27/18 20:24 Review of Systems Review of Systems ROS Unobtainable: All systems reviewed & are unremarkable except as noted in HPI and below Constitutional Constitutional: Denies chills, Denies fever(s), Denies lethargy and Denies weakness Eyes Eyes: Denies change in vision, Denies eye discharge, Denies irritation and Denies loss of vision ENT Ears, Nose, Mouth, and Throat: Denies change in voice, Denies neck pain and Denies sore throat Cardiovascular Cardiovascular: Reports chest pain, Denies dyspnea and Denies dyspnea on exertion Respiratory Respiratory: Denies cough, Denies dyspnea, Denies dyspnea on exertion and Denies wheezing Gastrointestinal Gastrointestinal: Reports as per HPI, Reports abdominal pain and Reports nausea Genitourinary Genitourinary: Denies hematuria, Denies flank pain, Denies urinary incontinence and Denies urinary urgency Musculoskeletal Musculoskeletal: Denies neck pain Integumentary/Breasts Skin/Breast: Denies pruritus, Denies erythema, Denies rash and Denies wounds Neurologic Neurologic: Denies loss of vision and Denies weakness Allergic/Immunologic Allergic/Immunologic: Denies wheezing [facility] Medical History Cholecystitis without cholelithiasis (Acute) Diverticulitis (Acute) Hiatal hernia (Acute) HTN (hypertension) (Acute) Hydrocele (Acute) Liver fibrosis (Acute) NIDHI (obstructive sleep apnea) (Acute) Vertigo (Acute) Surgical History H/O hernia repair (Acute) Social History Smoking Status: Never smoker Social History Smoking Status: Never smoker Exam Initial Vital Signs Initial Vital Signs: Vital Signs Pulse Rate 66 04/07/19 08:41 Respiratory Rate 14 04/07/19 08:41 Blood Pressure 155/92 H 04/07/19 08:41 Pulse Oximetry 99 04/07/19 08:41 GENERAL: Patient appears in pain HEENT: Head atraumatic,EOMI, pupils reactive, face symmetric, moist mucous membranes CARDIOVASCULAR: Regular rate and rhythm without murmurs, rubs or gallops. RESPIRATORY: Breath sounds equal bilaterally, no wheezes rales or rhonchi. ABDOMEN: Soft, tender right upper quadrant positive Vazquez sign. No lower abdominal pain : No CVA tenderness EXTREMITIES: Normal range of motion, no clubbing or edema. Neurovascularly intact NEUROLOGICAL: Alert and oriented x4.Normal gait and speech. SKIN: Warm, dry, no laceration, no petechiae, no rashes or lesions. Course Orders Ordered: ED Orders 04/07/19 08:40 EKG-12 Lead Stat 04/07/19 08:43 Complete Blood Count AUTO DIFF Stat Comprehensive Metabolic Panel Stat Lipase Stat Partial Thromboplastin Time Stat Prothrombin Time INR Stat 04/07/19 08:58 US abdomen limited Stat Discontinued Medications Ketorolac Tromethamine (Toradol) 30 mg IV NOW ONE Stop: 04/07/19 08:59 Last Admin: 04/07/19 09:23 Dose: 30 mg Documented by: CHRISTOPHE Morphine Sulfate (Morphine) 4 mg IV NOW ONE Stop: 04/07/19 09:50 Last Admin: 04/07/19 10:16 Dose: 4 mg Documented by: ANUJA Ondansetron HCl (Zofran) 4 mg IV NOW ONE Stop: 04/07/19 08:59 Last Admin: 04/07/19 09:23 Dose: 4 mg Documented by: CHRISTOPHE Vital Signs Vital signs: Vital Signs - 8 hr 04/07/19 08:41 04/07/19 10:07 04/07/19 11:03 Pulse Rate 66 47 L 52 L Respiratory Rate 14 11 L 15 Blood Pressure 155/92 H Blood Pressure [Left Arm] 111/63 115/72 Pulse Oximetry 99 94 98 04/07/19 12:00 Pulse Rate 48 L Respiratory Rate 9 L Blood Pressure Blood Pressure [Left Arm] 131/84 Pulse Oximetry 96 MDM - Chest Pain Lab Data Attestation: I reviewed the patient's lab results. Result diagrams: 04/07/19 08:43 04/07/19 08:43 Labs: Lab Results 04/07/19 04/07/19 04/07/19 Range/Units 08:43 08:43 08:43 WBC 7.4 (4.5-11.0) X10^3/uL RBC 5.07 (4.5-5.9) X10^6/uL Hgb 15.7 (13.5-17.5) g/dL Hct 45.0 (41-53) % MCV 88.8 (80-100) fL MCH 31.0 (26-34) PG MCHC 34.9 (30-36) % RDW 13.1 (11.6-14.8) % Plt Count 298 (150-400) X10^3/uL Neut % (Auto) 60.4 (50-75) % Lymph % (Auto) 28.1 (25-40) % [place] % (Auto) 9.0 (3-14) % Eos % (Auto) 1.6 L (2-4) % Baso % (Auto) 0.9 (0-2) % Neut # (Auto) 4400 (3954-1428) /uL Lymph # (Auto) 2100 (9424-6152) /uL [place] # (Auto) 700 (0-900) /uL Eos # (Auto) 100 (0-450) /uL Baso # (Auto) 100 (0-100) /uL PT 11.1 (10.1-12.7) SECONDS INR 1.0 (0.9-1.3) APTT 32 (26.4-36.2) SECONDS Sodium 141 (137-145) mmol/L Potassium 4.1 (3.4-5.1) mmol/L Chloride 102 (98-107) mmol/L Carbon Dioxide 25 (22-32) mmol/L BUN 13 (9-20) mg/dL Creatinine 0.80 (0.66-1.25) mg/dL Estimated GFR > 60.0 (>60) mL/min BUN/Creatinine Ratio 16.3 (6-22) Glucose 189 H (70-100) mg/dL Calcium 9.5 (8.4-10.2) mg/dL Total Bilirubin 0.5 (0.2-1.3) mg/dL AST 33 (17-59) IU/L ALT 64 (21-72) IU/L Alkaline Phosphatase 54 (38-126) U/L Total Protein 7.7 (6.3-8.2) g/dL Albumin 4.7 (3.5-5.0) g/dL Globulin 3.0 (1.7-4.1) g/dL Albumin/Globulin Ratio 1.6 (1.0-2.8) Lipase 85 (23-300) U/L Urine Dip Bedside Urine Glucose Negative Bedside Urine Bilirubin - Negative Bedside Urine Ketone - Negative Urine Specific Scott 1.015 Bedside Urine Occult Blood - Negative Bedside Urine pH 7.0 Bedside Urine Protein - Negative Bedside Urine Urobilinogen - Negative Bedside Urine Nitrite - Negative Bedside Urine Leukocytes - Negative Esterase Imaging Data US - abdomen: Radiologist's impression: PROCEDURE: US ABDOMEN LIMITED INDICATIONS: RUQ PAIN TECHNIQUE: Real-time scanning was performed of the abdominal and retroperitoneal organs, with image documentation. COMPARISON: [facility], US, US ABDOMEN COMPLETE, 11/29/2018, 0:58. [facility], CT, CT ABDOMEN PELVIS W CON, 11/29/2018, 1:32. FINDINGS: Liver: Liver is prominent in size and demonstrates coarse and diffusely increased echotexture. There is a 5.5 x 5.0 x 3.8 cm mass in the left hepatic lobe (previously 5.1 x 5.5 x 2.2 cm). This was previously evaluated with CT and showed peripheral nodular enhancement compatible with a hemangioma. A 1.5 cm hypoechoic nodule is seen adjacent to the gallbladder fossa, probably a cyst. It is unchanged in size. Gallbladder: Gallbladder is distended. There is sludge in gallbladder lumen. No gallbladder wall thickening or pericholecystic fluid collection. The sonographic Vazquez's sign is negative. Biliary ducts: Intrahepatic bile ducts are non-dilated. Extrahepatic bile duct caliber measures 5.6 mm. Normal is 6-7 mm or less in diameter, or 10 mm or less post-cholecystectomy. Pancreas: Visualized portions of the pancreas are sonographically normal. Spleen: Spleen is normal in size and homogeneous in echotexture. Kidneys: Visualized right kidney is normal without hydronephrosis. Miscellaneous: No free abdominal fluid. IMPRESSION: 1. Diffusely increased hepatic echotexture. This finding is most likely secondary to hepatic fatty infiltration although other hepatocellular disease may have a similar appearance. Recommend clinical correlation. 2. A 5.5 x 5.0 x 3.8 cm hepatic hemangioma in the left hepatic lobe. 3. A 1.5 cm low-density nodule near the gall bladder fossa, probably a small hepatic cyst. 4. Gallbladder sludge. The bladder is mildly distended, which could be related to fasting. No gallbladder wall thickening or pericholecystic fluid collection. The sonographic Vazquez's sign was negative. Dictated by: Marily Murphy M.D. on 04/07/2019 at 10:08 ECG Data Attestation: I personally reviewed and interpreted this ECG as follows: Interpretation: Normal sinus rhythm rate 61 p.r. interval 154 QRS [address] changes no T-wave inversions MDM Narrative Medical decision making narrative: Patient has no leukocytosis normal bilirubin normal LFTs. He does have sludge in his gallbladder and he was quite painful in his right upper quadrant. I did discuss case with surgery Dr. Marina, who recommends outpatient follow-up and elective cholecystectomy. I have talked this over with patient. He is agreeable and will call surgery for appointment. I have discussed with him warning signs and when to return to the ER. Overall his pain is much better after the morphine. Discharge Plan Departure Patient Disposition: Home Clinical Impression: Cholecystitis Discharge Date/Time: 04/07/19 12:14 Instructions: DI for Cholecystitis Activity Restrictions/Additional Instructions: *You have been diagnosed with cholecystitis *What to do: You will need her gallbladder removed. Planning and doing an elective surgery has less complications. *Continue to take medications as directed *Follow up with your primary care provider in 2-3 days, call surgery to schedule an appointment and then he will schedule surgery *Return to ER if you should have increasing right upper quadrant pain fevers persistent vomiting or any new, worsening or concerning symptoms Prescriptions: No Action acyclovir 200 mg Capsule 200 mg PO DIRECTED PRN (Reason: breakouts) RF: 0 lysine [L-Lysine] 500 mg Tablet 2 tab PO PRN PRN (Reason: breakaout) RF: 0 cholecalciferol (vitamin D3) [Vitamin D3] 1,000 unit Capsule 1,000 unit PO DAILY RF: 0 Complete Multi [id number] Tablet 1 tab PO DAILY RF: 0 esomeprazole magnesium 20 mg Tablet,Delayed Release (Dr/Ec) 20 mg PO DAILY RF: 0 Berberine 1 dose PO DIRECTED PRN (Reason: breakout) RF: 0 Referrals: Deandre Marina MD [Physician] - Dannielle Patton MD [Primary Care Provider] -
[2019-04-07 09:02] LABS: PTT Partial Thromboplastin Tim 32 SECONDS (26.4-36.2)
[2019-04-07 09:05] LABS: Alanine Aminotransferase 64 IU/L (21-72); Albumin 4.7 g/dL (3.5-5.0); Albumin Globulin Ratio 1.6 (1.0-2.8); Alkaline Phosphatase 54 U/L (38-126); Aspartate Aminotransferase 33 IU/L (17-59); BUN Creatinine Ratio 16.3 (6-22); Bilirubin Total 0.5 mg/dL (0.2-1.3); Blood Urea Nitrogen 13 mg/dL (9-20); Calcium 9.5 mg/dL (8.4-10.2); Carbon Dioxide 25 mmol/L (22-32); Chloride 102 mmol/L (98-107); Estimated Glomerular Filt Rate > 60.0 mL/min (>60); Glucose 189 mg/dL (70-100); HEMOLYSIS < 15 (0-50); Lipase 85 U/L (23-300); Potassium 4.1 mmol/L (3.4-5.1); Sodium 141 mmol/L (137-145); Total Protein 7.7 g/dL (6.3-8.2)
[2019-04-07] MEDS: KETOROLAC 60 MG/2 ML VIAL 30 MG IV (09:23)
[2019-04-07] MEDS: ONDANSETRON 4 MG/2 ML INJ IV (09:23)
[2019-04-07 10:07] VITALS: BP 111/63; PULSE 47; RESP 11; O2SAT 94
[2019-04-07] MEDS: MORPHINE 4 MG/ML INJ IV (10:16)
[2019-04-07 11:03] VITALS: BP 115/72; PULSE 52; RESP 15; O2SAT 98
[2019-04-07 12:00] VITALS: BP 131/84; PULSE 48; RESP 9; O2SAT 96
== END 2019-04-07 12:14 | disposition home or self-care (01) ==
PROVIDERS: Emergency Provider Emergency Medicine; PCP Student in an Organized Health Care Education/Training Program
DX: K81.9 Cholecystitis, unspecified (principal)
CPT/HCPCS: 36591; 76705; 80053; 81003; 83690; 85025; 85610; 85730; 93005; 93010; 96374; 96375; 99283; 99285; J1885; J2270; J2405

== ENCOUNTER 2019-04-16 12:12 | Inpatient (IN) | payer OTHER, SELFPAY ==
[2019-04-16] VITALS (7 sets, daily range): BP systolic 109–147; BP diastolic 69–89; PULSE 48–62; RESP 16–18; TEMP 36.2–36.4; O2SAT 93–99; BMI 31.5
--- NOTE | 2019-04-16 12:23 | DI.RAD.S_ITS ---
PROCEDURE: XR CHEST 1V INDICATIONS: chest pain TECHNIQUE: One view of the chest was acquired. COMPARISON: None. FINDINGS: Surgical changes and devices: None. Lungs and pleura: Lungs are clear. No pleural effusions or pneumothorax. Mediastinum: Mediastinal contours appear normal. Heart size is normal. Bones and chest wall: No suspicious bony lesions. Overlying soft tissues appear unremarkable. IMPRESSION: No evidence acute pulmonary process. Dictated by: Km Marrero M.D. on 04/16/2019 at 13:02 Approved by: Km Marrero M.D. on 04/16/2019 at 13:02
--- NOTE | 2019-04-16 12:24 | DI.US.S_ITS ---
PROCEDURE: US ABDOMEN LIMITED INDICATIONS: RIGHT UPPER QUADRANT PAIN TECHNIQUE: Real-time focused scanning was performed of the abdomen, with image documentation. COMPARISON: [facility], , US ABDOMEN LIMITED, 04/07/2019, 9:55. FINDINGS: Diffuse hepatic steatosis. Gallbladder is distended. There is minimal edema in the wall of the gallbladder. There are small stones in the gallbladder. There is a positive sonographic Vazquez sign. IMPRESSION: Findings are suspicious for acute cholecystitis. Clinical correlation suggested. Dictated by: Km Marrero M.D. on 04/16/2019 at 13:02 Approved by: Km Marrero M.D. on 04/16/2019 at 13:06
[2019-04-16 12:39] LABS: Add Manual Diff / Slide Review NO; Basophils Absolute Auto 100 /uL (0-100); Eosinophils Absolute Auto 200 /uL (0-450); Eosinophils Percent Auto 2.1 % (2-4); Hematocrit 42.8 % (41-53); Hemoglobin 15.3 g/dL (13.5-17.5); Lymphocytes Absolute Auto 2100 /uL (1100-4500); Lymphocytes Percent Auto 27.4 % (25-40); Mean Corpuscular HGB Conc 35.7 % (30-36); Mean Corpuscular Hemoglobin 31.3 PG (26-34); Mean Corpuscular Volume 87.5 fL (80-100); Monocytes Absolute Auto 600 /uL (0-900); Monocytes Percent Auto 8.3 % (3-14); Neutrophils Absolute Auto 4700 /uL (1500-7000); Neutrophils Percent Auto 61.2 % (50-75); Platelet Count 272 X10^3/uL (150-400); Red Blood Cell Count 4.89 X10^6/uL (4.5-5.9); White Blood Cell Count 7.7 X10^3/uL (4.5-11.0)
[2019-04-16] MEDS: PANTOPRAZOLE 40 MG VIAL IV ×2 (12:40→20:45)
[2019-04-16] MEDS: ONDANSETRON 4 MG/2 ML INJ IV ×2 (12:40→16:36)
[2019-04-16] MEDS: SODIUM CHLORIDE 0.9% 1,000 ML 1000 ML IV ×2 (12:40→16:37)
[2019-04-16 12:45] LABS: INR 0.9 (0.9-1.3); Prothrombin Time 10.7 SECONDS (10.1-12.7)
[2019-04-16 12:48] LABS: PTT Partial Thromboplastin Tim 32 SECONDS (26.4-36.2)
[2019-04-16 12:51] LABS: Alanine Aminotransferase 205 IU/L (21-72); Albumin 4.6 g/dL (3.5-5.0); Albumin Globulin Ratio 1.6 (1.0-2.8); Alkaline Phosphatase 98 U/L (38-126); Amylase 136 U/L (30-110); Aspartate Aminotransferase 48 IU/L (17-59); BUN Creatinine Ratio 18.6 (6-22); Bilirubin Total 0.5 mg/dL (0.2-1.3); Blood Urea Nitrogen 13 mg/dL (9-20); Calcium 9.3 mg/dL (8.4-10.2); Carbon Dioxide 27 mmol/L (22-32); Chloride 100 mmol/L (98-107); Creatine Kinase 75 U/L (55-170); Estimated Glomerular Filt Rate > 60.0 mL/min (>60); Globulin 2.8 g/dL (1.7-4.1); Glucose 162 mg/dL (70-100); HEMOLYSIS < 15 (0-50); Lipase 782 U/L (23-300); Sodium 140 mmol/L (137-145); Total Protein 7.4 g/dL (6.3-8.2)
[2019-04-16 12:55] LABS: B Type Natriuretic Peptide < 100 (<100)
[2019-04-16] MEDS: MORPHINE 4 MG/ML INJ IV ×2 (12:58→13:44)
[2019-04-16 13:02] LABS: Troponin I < 0.012 ng/mL (0.01-0.034)
--- NOTE | 2019-04-16 13:35 | ED.CHESTPAIN ---
HPI - Chest Pain <WALI Delarosa - Last Filed: 04/16/19 18:30> General Chief Complaint: Chest Pain Stated Complaint: chest pressure and abdominal pain x5 days Time Seen by Provider: 04/16/19 12:16 Source: patient and family Mode of arrival: ambulatory Limitations: no limitations History of Present Illness HPI narrative: The patient is a 38-year-old male nonsmoker with history of liver fibrosis sleep apnea and vertigo who presents with a chief complaint of right upper quadrant pain and chest pain. He states that this has been consistent since his previous visit to this department on 04/07/2019. He was noted to have sludge in his gallbladder at this time, and was referred to surgery. He has a follow-up appoint with Dr. Erazo tomorrow for workup of elective cholecystectomy. Pain is substernal, radiating from his right upper quadrant. He denies any fevers, states he is eating and drinking well. Last solid intake was 12 hours ago, last liquid intake of water was several hours ago. Related Data Home Medications Medication Instructions Recorded Confirmed acyclovir 200 mg PO DIRECTED PRN 09/27/18 04/07/19 cholecalciferol (vitamin D3) 1,000 unit PO DAILY 09/27/18 04/07/19 [Vitamin D3] lysine [L-Lysine] 2 tab PO PRN PRN 09/27/18 04/07/19 multivit,Ca,idcl-TW-hinlqc-lut 1 tab PO DAILY 09/27/18 04/07/19 [Complete Multi] Berberine 1 dose PO DIRECTED PRN 04/07/19 04/07/19 esomeprazole magnesium 20 mg PO DAILY 04/07/19 04/07/19 Allergies Allergy/AdvReac Type Severity Reaction Status Date / Time No Known Drug Allergies Allergy Verified 04/16/19 12:31 Review of Systems <WALI Delarosa - Last Filed: 04/16/19 18:30> Review of Systems Narrative: GENERAL: Denies chills, fatigue, malaise, fever, sweats. HEENT: Denies sinus pain, ear pain, sore throat, difficulty swallowing, dizziness. RESPIRATORY: Denies dyspnea, cough, wheezing, hemoptysis, sputum. CARDIOVASCULAR: See HPI GASTROINTESTINAL: See HPI : Denies dysuria, frequency, incontinence, hematuria, urinary retention. MUSCULOSKELETAL: denies weakness, joint pain, or bony pain SKIN: Denies rash, skin lesions, or other NEUROLOGIC: Denies weakness, headache, numbness, change in speech, confusion, seizures, incoordination. PSYCHIATRIC: No concerning psychosocial issues. 12 point review of systems is negative except for those stated above PFSH <WALI Delarosa - Last Filed: 04/16/19 18:30> Medical History Cholecystitis without cholelithiasis (Acute) Diverticulitis (Acute) Hiatal hernia (Acute) HTN (hypertension) (Acute) Hydrocele (Acute) Liver fibrosis (Acute) NIDHI (obstructive sleep apnea) (Acute) Vertigo (Acute) Surgical History H/O hernia repair (Acute) Social History household members: significant other Smoking Status: Never smoker alcohol intake: current Social History household members: significant other Smoking Status: Never smoker alcohol intake: current Exam <WALI Delarosa - Last Filed: 04/16/19 18:30> Narrative Exam Narrative: GENERAL: This is a well-nourished, well-developed patient, appears uncomfortable HEAD: Atraumatic. Normocephalic. No temporal or scalp tenderness. EYES: Pupils equal round and reactive. Extraocular motions intact. No scleral icterus. No injection or drainage. ENT: Nose without bleeding, purulent drainage or septal hematoma. Throat without erythema, tonsillar hypertrophy or exudate. Uvula midline. Airway patent. NECK: Trachea midline. No JVD or lymphadenopathy. Supple, nontender, no meningeal signs. CARDIOVASCULAR: Regular rate and rhythm without murmurs, gallops, or rubs. RESPIRATORY: Clear to auscultation. Breath sounds equal bilaterally. No wheezes, rales, or rhonchi. No cough. No stridor. No increased respiratory effort. No accessory muscle use. GASTROINTESTINAL: Abdomen soft, nondistended. No hepato-splenomegaly, or palpable masses. No guarding. Right upper quadrant pain to palpation. Positive Vazquez sign. Pain to epigastric palpation. EXTREMITIES: No clubbing, cyanosis, or edema. No joint tenderness, effusion, or edema noted. BACK: Nontender without deformity or crepitance. No flank tenderness. NEURO: AOx3. SKIN: No rash or erythema. Initial Vital Signs Initial Vital Signs: Vital Signs Temperature 97.4 F L 04/16/19 12:25 Pulse Rate 62 04/16/19 12:25 Respiratory Rate 17 04/16/19 12:25 Blood Pressure 135/89 04/16/19 12:25 Pulse Oximetry 99 04/16/19 12:25 <Suraj Wiggins DO - Last Filed: 04/16/19 22:04> Initial Vital Signs Initial Vital Signs: Vital Signs Temperature 97.4 F L 04/16/19 12:25 Pulse Rate 62 04/16/19 12:25 Respiratory Rate 17 04/16/19 12:25 Blood Pressure 135/89 04/16/19 12:25 Pulse Oximetry 99 04/16/19 12:25 Course <DEE eDlarosa - Last Filed: 04/16/19 18:30> Orders Ordered: ED Orders 04/16/19 16:17 Consult to General Surgery Routine Enoxaparin Sodium (Lovenox) 40 mg SUBCUT DAILY [facility] Hydromorphone HCl (Dilaudid) 1 mg IV Q3H PRN PRN Reason: Pain, Moderate (4-6) Last Admin: 04/16/19 20:40 Dose: 1 mg Documented by: SHERLYN Sodium Chloride (Normal Saline 0.9%) 1,000 mls @ 250 mls/hr IV CONT [facility] Last Admin: 04/16/19 18:06 Dose: 250 mls/hr Documented by: SHERLYN Naloxone HCl (Narcan) 0.2 mg IV Q2MIN PRN PRN Reason: Opiate Reversal Ondansetron HCl (Zofran) 4 mg IV Q6HR PRN PRN Reason: Nausea And Vomiting Pantoprazole Sodium (Protonix) 40 mg IV BID [facility] Last Admin: 04/16/19 20:45 Dose: 40 mg Documented by: SHERLYN Discontinued Medications Hydromorphone HCl (Dilaudid) 1 mg IV NOW ONE Stop: 04/16/19 14:53 Last Admin: 04/16/19 14:56 Dose: 1 mg Documented by: MEG Hydromorphone HCl (Dilaudid) 1 mg IV NOW ONE Stop: 04/16/19 16:22 Last Admin: 04/16/19 16:37 Dose: 1 mg Documented by: MEG Sodium Chloride (Normal Saline 0.9%) 1,000 mls @ 1,000 mls/hr IV BOLUS ONE Stop: 04/16/19 13:23 Last Infusion: 04/16/19 13:51 Dose: 0 mls/hr Documented by: Admin: 04/16/19 12:40 Dose: 1,000 mls/hr Documented by: MEG Sodium Chloride (Normal Saline 0.9%) 1,000 mls @ 1,000 mls/hr IV BOLUS ONE Stop: 04/16/19 16:14 Last Infusion: 04/16/19 17:35 Dose: 0 mls/hr Documented by: Admin: 04/16/19 16:37 Dose: 1,000 mls/hr Documented by: MEG HYDROMORPHONE REFERENCE INVESTIGATOR (6MG/30ML) (Dilaudid Aircraft Body Repairer (6mg/30ml)) 6 mg in 30 mls @ 0.5 mls/hr IV Q8HR PRN PRN Reason: Pain, Moderate (4-6) Influenza Virus Vaccine (Flu Vaccine) 0.5 ml IM .ONCE ONE Stop: 04/16/19 18:01 Morphine Sulfate (Morphine) 4 mg IV NOW ONE Stop: 04/16/19 12:46 Last Admin: 04/16/19 12:58 Dose: 4 mg Documented by: MEG Morphine Sulfate (Morphine) 4 mg IV NOW ONE Stop: 04/16/19 13:29 Last Admin: 04/16/19 13:44 Dose: 4 mg Documented by: MEG Naloxone HCl (Narcan) 0.2 mg IV Q2MIN PRN; Protocol PRN Reason: Opiate Reversal Ondansetron HCl (Zofran) 4 mg IV NOW ONE Stop: 04/16/19 12:25 Last Admin: 04/16/19 12:40 Dose: 4 mg Documented by: MEG Ondansetron HCl (Zofran) 4 mg IV NOW ONE Stop: 04/16/19 16:22 Last Admin: 04/16/19 16:36 Dose: 4 mg Documented by: MEG Pantoprazole Sodium (Protonix) 40 mg IV NOW ONE Stop: 04/16/19 12:25 Last Admin: 04/16/19 12:40 Dose: 40 mg Documented by: MEG Pantoprazole Sodium (Protonix) 20 mg PO 0600 [facility] Vital Signs Vital signs: Vital Signs - 8 hr 04/16/19 14:52 Pulse Rate 58 L Respiratory Rate 18 Blood Pressure [Left Arm] 109/69 Pulse Oximetry 99 <Suraj Wiggins DO - Last Filed: 04/16/19 22:04> Orders Ordered: ED Orders 04/16/19 16:17 Consult to General Surgery Routine Enoxaparin Sodium (Lovenox) 40 mg SUBCUT DAILY [facility] Hydromorphone HCl (Dilaudid) 1 mg IV Q3H PRN PRN Reason: Pain, Moderate (4-6) Last Admin: 04/16/19 20:40 Dose: 1 mg Documented by: SHERLYN Sodium Chloride (Normal Saline 0.9%) 1,000 mls @ 250 mls/hr IV CONT [facility] Last Admin: 04/16/19 18:06 Dose: 250 mls/hr Documented by: SHERLYN Naloxone HCl (Narcan) 0.2 mg IV Q2MIN PRN PRN Reason: Opiate Reversal Ondansetron HCl (Zofran) 4 mg IV Q6HR PRN PRN Reason: Nausea And Vomiting Pantoprazole Sodium (Protonix) 40 mg IV BID [facility] Last Admin: 04/16/19 20:45 Dose: 40 mg Documented by: SHERLYN Discontinued Medications Hydromorphone HCl (Dilaudid) 1 mg IV NOW ONE Stop: 04/16/19 14:53 Last Admin: 04/16/19 14:56 Dose: 1 mg Documented by: MEG Hydromorphone HCl (Dilaudid) 1 mg IV NOW ONE Stop: 04/16/19 16:22 Last Admin: 04/16/19 16:37 Dose: 1 mg Documented by: MEG Sodium Chloride (Normal Saline 0.9%) 1,000 mls @ 1,000 mls/hr IV BOLUS ONE Stop: 04/16/19 13:23 Last Infusion: 04/16/19 13:51 Dose: 0 mls/hr Documented by: Admin: 04/16/19 12:40 Dose: 1,000 mls/hr Documented by: MEG Sodium Chloride (Normal Saline 0.9%) 1,000 mls @ 1,000 mls/hr IV BOLUS ONE Stop: 04/16/19 16:14 Last Infusion: 04/16/19 17:35 Dose: 0 mls/hr Documented by: Admin: 04/16/19 16:37 Dose: 1,000 mls/hr Documented by: MEG HYDROMORPHONE REFERENCE INVESTIGATOR (6MG/30ML) (Dilaudid Aircraft Body Repairer (6mg/30ml)) 6 mg in 30 mls @ 0.5 mls/hr IV Q8HR PRN PRN Reason: Pain, Moderate (4-6) Influenza Virus Vaccine (Flu Vaccine) 0.5 ml IM .ONCE ONE Stop: 04/16/19 18:01 Morphine Sulfate (Morphine) 4 mg IV NOW ONE Stop: 04/16/19 12:46 Last Admin: 04/16/19 12:58 Dose: 4 mg Documented by: MEG Morphine Sulfate (Morphine) 4 mg IV NOW ONE Stop: 04/16/19 13:29 Last Admin: 04/16/19 13:44 Dose: 4 mg Documented by: MEG Naloxone HCl (Narcan) 0.2 mg IV Q2MIN PRN; Protocol PRN Reason: Opiate Reversal Ondansetron HCl (Zofran) 4 mg IV NOW ONE Stop: 04/16/19 12:25 Last Admin: 04/16/19 12:40 Dose: 4 mg Documented by: MEG Ondansetron HCl (Zofran) 4 mg IV NOW ONE Stop: 04/16/19 16:22 Last Admin: 04/16/19 16:36 Dose: 4 mg Documented by: MEG Pantoprazole Sodium (Protonix) 40 mg IV NOW ONE Stop: 04/16/19 12:25 Last Admin: 04/16/19 12:40 Dose: 40 mg Documented by: MEG Pantoprazole Sodium (Protonix) 20 mg PO 0600 [facility] Vital Signs Vital signs: Vital Signs - 8 hr 04/16/19 14:52 Pulse Rate 58 L Respiratory Rate 18 Blood Pressure [Left Arm] 109/69 Pulse Oximetry 99 MDM - Chest Pain <Braina Karla, PSYCHIATRIC NURSING AIDE- - Last Filed: 04/16/19 18:30> Lab Data Result diagrams: 04/16/19 20:30 04/16/19 20:30 Labs: Lab Results 04/16/19 04/16/19 04/16/19 Range/Units 12:26 12:26 12:26 WBC 7.7 (4.5-11.0) X10^3/uL RBC 4.89 (4.5-5.9) X10^6/uL Hgb 15.3 (13.5-17.5) g/dL Hct 42.8 (41-53) % MCV 87.5 (80-100) fL MCH 31.3 (26-34) PG MCHC 35.7 (30-36) % RDW 13.0 (11.6-14.8) % Plt Count 272 (150-400) X10^3/uL Neut % (Auto) 61.2 (50-75) % Lymph % (Auto) 27.4 (25-40) % [place] % (Auto) 8.3 (3-14) % Eos % (Auto) 2.1 (2-4) % Baso % (Auto) 1.0 (0-2) % Neut # (Auto) 4700 (2877-4240) /uL Lymph # (Auto) 2100 (3639-6700) /uL [place] # (Auto) 600 (0-900) /uL Eos # (Auto) 200 (0-450) /uL Baso # (Auto) 100 (0-100) /uL PT 10.7 (10.1-12.7) SECONDS INR 0.9 (0.9-1.3) APTT 32 (26.4-36.2) SECONDS Sodium 140 (137-145) mmol/L Potassium 4.0 (3.4-5.1) mmol/L Chloride 100 (98-107) mmol/L Carbon Dioxide 27 (22-32) mmol/L BUN 13 (9-20) mg/dL Creatinine 0.70 (0.66-1.25) mg/dL Estimated GFR > 60.0 (>60) mL/min BUN/Creatinine Ratio 18.6 (6-22) Glucose 162 H (70-100) mg/dL Calcium 9.3 (8.4-10.2) mg/dL Total Bilirubin 0.5 (0.2-1.3) mg/dL AST 48 (17-59) IU/L ALT 205 H (21-72) IU/L Alkaline Phosphatase 98 (38-126) U/L Total Creatine Kinase 75 (55-170) U/L CK-MB (CK-2) TNP CK-MB (CK-2) Rel Index TNP Troponin I < 0.012 (0.01-0.034) ng/mL B-Natriuretic Peptide < 100 (<100) Total Protein 7.4 (6.3-8.2) g/dL Albumin 4.6 (3.5-5.0) g/dL Globulin 2.8 (1.7-4.1) g/dL Albumin/Globulin Ratio 1.6 (1.0-2.8) Amylase 136 H (30-110) U/L Lipase 782 H D (23-300) U/L Procalcitonin (<0.5) ng/mL 04/16/19 Range/Units 12:26 WBC (4.5-11.0) X10^3/uL RBC (4.5-5.9) X10^6/uL Hgb (13.5-17.5) g/dL Hct (41-53) % MCV (80-100) fL MCH (26-34) PG MCHC (30-36) % RDW (11.6-14.8) % Plt Count (150-400) X10^3/uL Neut % (Auto) (50-75) % Lymph % (Auto) (25-40) % [place] % (Auto) (3-14) % Eos % (Auto) (2-4) % Baso % (Auto) (0-2) % Neut # (Auto) (7378-6828) /uL Lymph # (Auto) (1294-5553) /uL [place] # (Auto) (0-900) /uL Eos # (Auto) (0-450) /uL Baso # (Auto) (0-100) /uL PT (10.1-12.7) SECONDS INR (0.9-1.3) APTT (26.4-36.2) SECONDS Sodium (137-145) mmol/L Potassium (3.4-5.1) mmol/L Chloride (98-107) mmol/L Carbon Dioxide (22-32) mmol/L BUN (9-20) mg/dL Creatinine (0.66-1.25) mg/dL Estimated GFR (>60) mL/min BUN/Creatinine Ratio (6-22) Glucose (70-100) mg/dL Calcium (8.4-10.2) mg/dL Total Bilirubin (0.2-1.3) mg/dL AST (17-59) IU/L ALT (21-72) IU/L Alkaline Phosphatase (38-126) U/L Total Creatine Kinase (55-170) U/L CK-MB (CK-2) CK-MB (CK-2) Rel Index Troponin I (0.01-0.034) ng/mL B-Natriuretic Peptide (<100) Total Protein (6.3-8.2) g/dL Albumin (3.5-5.0) g/dL Globulin (1.7-4.1) g/dL Albumin/Globulin Ratio (1.0-2.8) Amylase (30-110) U/L Lipase (23-300) U/L Procalcitonin < 0.05 (<0.5) ng/mL Imaging Data US - abdomen: Radiologist's impression: [address] [address] Ultrasound Report Signed Patient: Perry Hernadez JMR#: [id number] : 1980Acct:[id number] Age/Sex: 38 / MDate of Service: 04/16/19 Loc: ED Accession Number: [id number] Procedure: US abdomen limited Ordering Provider: Briana Acosta PROCEDURE: US ABDOMEN LIMITED INDICATIONS: RIGHT UPPER QUADRANT PAIN TECHNIQUE: Real-time focused scanning was performed of the abdomen, with image documentation. COMPARISON: [facility], , US ABDOMEN LIMITED, 04/07/2019, 9:55. FINDINGS: Diffuse hepatic steatosis. Gallbladder is distended. There is minimal edema in the wall of the gallbladder. There are small stones in the gallbladder. There is a positive sonographic Vazquez sign. IMPRESSION: Findings are suspicious for acute cholecystitis. Clinical correlation suggested. Dictated by: Km Marrero M.D. on 04/16/2019 at 13:02 Approved by: Km Marrero M.D. on 04/16/2019 at 13:06 Chest x-ray: Radiologist's impression: [address] [address] XRay Report Signed Patient: Perry HernadezR#: [id number] : 1980Acct:[id number] Age/Sex: 38 / MDate of Service: 04/16/19 Loc: ED Accession Number: [id number] Procedure: XR chest 1V Ordering Provider: Briana Acosta PROCEDURE: XR CHEST 1V INDICATIONS: chest pain TECHNIQUE: One view of the chest was acquired. COMPARISON: None. FINDINGS: Surgical changes and devices: None. Lungs and pleura: Lungs are clear. No pleural effusions or pneumothorax. Mediastinum: Mediastinal contours appear normal. Heart size is normal. Bones and chest wall: No suspicious bony lesions. Overlying soft tissues appear unremarkable. IMPRESSION: No evidence acute pulmonary process. Dictated by: Km Marrero M.D. on 04/16/2019 at 13:02 Approved by: Km Marrero M.D. on 04/16/2019 at 13:02 ECG Data Attestation: I personally reviewed and interpreted this ECG as follows: Interpretation: Sinus bradycardia. Ventricular rate 53. No ST elevation depression. P.r. interval 147. MDM Narrative Medical decision making narrative: The patient is a 38-year-old male who presents with a chief complaint of continued at upper abdominal and chest pain. He has positive Vazquez sign and has a recent diagnosis of cholecystitis. I did obtain an ultrasound, which is concerning for acute cholecystitis. His lipase is elevated in the 700 range, raising suspicion for pancreatitis. This is likely related to his gallbladder issues. The patient has a normal bilirubin, no leukocytosis, was given 2 L of IV fluid as well as pain and nausea medications in the emergency department. I did speak with the surgeon on-call Dr. Minaya who kindly came down to evaluate the patient. He recommended that the patient be admitted under Medicine for treatment of pancreatitis and subsequent cholecystectomy in the next few days. I spoke with the patient's PCP, Dr. Patton who kindly agreed to admit the patient with surgery following the patient. Discussed the plan with the patient and he has no questions or concerns. Patient was admitted without incident. <Suraj Wiggins DO - Last Filed: 04/16/19 22:04> Lab Data Labs: Lab Results 04/16/19 04/16/19 04/16/19 Range/Units 12:26 12:26 12:26 WBC 7.7 (4.5-11.0) X10^3/uL RBC 4.89 (4.5-5.9) X10^6/uL Hgb 15.3 (13.5-17.5) g/dL Hct 42.8 (41-53) % MCV 87.5 (80-100) fL MCH 31.3 (26-34) PG MCHC 35.7 (30-36) % RDW 13.0 (11.6-14.8) % Plt Count 272 (150-400) X10^3/uL Neut % (Auto) 61.2 (50-75) % Lymph % (Auto) 27.4 (25-40) % [place] % (Auto) 8.3 (3-14) % Eos % (Auto) 2.1 (2-4) % Baso % (Auto) 1.0 (0-2) % Neut # (Auto) 4700 (7038-9626) /uL Lymph # (Auto) 2100 (6740-9908) /uL [place] # (Auto) 600 (0-900) /uL Eos # (Auto) 200 (0-450) /uL Baso # (Auto) 100 (0-100) /uL PT 10.7 (10.1-12.7) SECONDS INR 0.9 (0.9-1.3) APTT 32 (26.4-36.2) SECONDS Sodium 140 (137-145) mmol/L Potassium 4.0 (3.4-5.1) mmol/L Chloride 100 (98-107) mmol/L Carbon Dioxide 27 (22-32) mmol/L BUN 13 (9-20) mg/dL Creatinine 0.70 (0.66-1.25) mg/dL Estimated GFR > 60.0 (>60) mL/min BUN/Creatinine Ratio 18.6 (6-22) Glucose 162 H (70-100) mg/dL Calcium 9.3 (8.4-10.2) mg/dL Total Bilirubin 0.5 (0.2-1.3) mg/dL AST 48 (17-59) IU/L ALT 205 H (21-72) IU/L Alkaline Phosphatase 98 (38-126) U/L Total Creatine Kinase 75 (55-170) U/L CK-MB (CK-2) TNP CK-MB (CK-2) Rel Index TNP Troponin I < 0.012 (0.01-0.034) ng/mL B-Natriuretic Peptide < 100 (<100) Total Protein 7.4 (6.3-8.2) g/dL Albumin 4.6 (3.5-5.0) g/dL Globulin 2.8 (1.7-4.1) g/dL Albumin/Globulin Ratio 1.6 (1.0-2.8) Amylase 136 H (30-110) U/L Lipase 782 H D (23-300) U/L Procalcitonin (<0.5) ng/mL 04/16/19 Range/Units 12:26 WBC (4.5-11.0) X10^3/uL RBC (4.5-5.9) X10^6/uL Hgb (13.5-17.5) g/dL Hct (41-53) % MCV (80-100) fL MCH (26-34) PG MCHC (30-36) % RDW (11.6-14.8) % Plt Count (150-400) X10^3/uL Neut % (Auto) (50-75) % Lymph % (Auto) (25-40) % [place] % (Auto) (3-14) % Eos % (Auto) (2-4) % Baso % (Auto) (0-2) % Neut # (Auto) (9278-1199) /uL Lymph # (Auto) (0081-7597) /uL [place] # (Auto) (0-900) /uL Eos # (Auto) (0-450) /uL Baso # (Auto) (0-100) /uL PT (10.1-12.7) SECONDS INR (0.9-1.3) APTT (26.4-36.2) SECONDS Sodium (137-145) mmol/L Potassium (3.4-5.1) mmol/L Chloride (98-107) mmol/L Carbon Dioxide (22-32) mmol/L BUN (9-20) mg/dL Creatinine (0.66-1.25) mg/dL Estimated GFR (>60) mL/min BUN/Creatinine Ratio (6-22) Glucose (70-100) mg/dL Calcium (8.4-10.2) mg/dL Total Bilirubin (0.2-1.3) mg/dL AST (17-59) IU/L ALT (21-72) IU/L Alkaline Phosphatase (38-126) U/L Total Creatine Kinase (55-170) U/L CK-MB (CK-2) CK-MB (CK-2) Rel Index Troponin I (0.01-0.034) ng/mL B-Natriuretic Peptide (<100) Total Protein (6.3-8.2) g/dL Albumin (3.5-5.0) g/dL Globulin (1.7-4.1) g/dL Albumin/Globulin Ratio (1.0-2.8) Amylase (30-110) U/L Lipase (23-300) U/L Procalcitonin < 0.05 (<0.5) ng/mL Discharge Plan Departure Patient Disposition: Admitted As Inpatient Clinical Impression: Cholecystitis Acute pancreatitis Qualifiers: Pancreatitis type: unspecified pancreatitis type Acute pancreatitis complication: no infection or necrosis Qualified Code(s): K85.90 - Acute pancreatitis without necrosis or infection, unspecified Discharge Date/Time: 04/16/19 17:44 Admit Date/Time: 04/16/19 16:17 Admit Provider: Dannielle Patton
[2019-04-16 13:54] LABS: Procalcitonin < 0.05 ng/mL (<0.5)
--- NOTE | 2019-04-16 14:50 | PC.NURSE ---
pt ate last at 1 am, 3 pieces of pizza, last drink at 0800 approx. 4am
[2019-04-16] MEDS: HYDROMORPHONE 1 MG INJ IV ×2 (14:56→20:40)
[2019-04-16] MEDS: HYDROMORPHONE 0.5 MG INJ 1 MG IV (16:37)
[2019-04-16] MEDS: SODIUM CHLORIDE 0.9% 1,000 ML 250 ML IV ×2 (18:06→22:22)
--- NOTE | 2019-04-16 18:15 | PC.ADMIT ---
[email or web address] [facility] [address] Admission Note: The patient,Perry Hernadez,38 y/o, was given written information regarding hospital policies, unit procedures and contact persons. Patient's smoking status: Never smoker. Vital Signs - 8 hr 04/16/19 12:25 04/16/19 13:02 04/16/19 14:52 Temperature 97.4 F L Pulse Rate 62 60 58 L Respiratory Rate 17 18 18 Blood Pressure 135/89 Blood Pressure [Left Arm] 147/82 H 109/69 Pulse Oximetry 99 99 99 04/16/19 16:30 Temperature Pulse Rate 60 Respiratory Rate 18 Blood Pressure Blood Pressure [Left Arm] 144/76 H Pulse Oximetry 95 Patient up from ED via stretcher. Patient was able to get off of the stretcher and ambulate to AC bed, gait steady. Patient c/o low 2/10 pain. A&O, calm and cooperative.
--- NOTE | 2019-04-16 19:42 | P.CONS_ITS ---
History of Present Illness Consult details Date Patient Seen: 04/16/19 Time Patient Seen: 14:00 Chief complaint: chest pressure and abdominal pain x5 days Reason for consult: Gallbladder wall edema Narrative: 38-year-old man with history of diabetes presents to emergency department with substantial epigastric and right upper quadrant abdominal pain - mild pain in the area for 1 week however the last 3 days pain has become substantial with associated nausea and poor p.o. intake. Pain is in the epigastric region as well as along the right costal margin it radiates straight through the abdomen to the back between the shoulder blades. It is not worsened by food number alleviated by food. Patient is becoming increasingly uncomfortable and unable to sleep. In the emergency department WBC 7, lipase over 700, right upper quadrant ultra sound demonstrated minimal amount of gallbladder wall edema as well as gallstones [facility] Medical History Cholecystitis without cholelithiasis (Acute) Diverticulitis (Acute) Hiatal hernia (Acute) HTN (hypertension) (Acute) Hydrocele (Acute) Liver fibrosis (Acute) NIDHI (obstructive sleep apnea) (Acute) Vertigo (Acute) Surgical History H/O hernia repair (Acute) Social History household members: significant other Smoking Status: Never smoker alcohol intake: current Social History household members: significant other Smoking Status: Never smoker alcohol intake: current Meds Home Medications and Allergies Home Medications Medication Instructions Recorded Confirmed Type acyclovir 200 mg PO DIRECTED PRN 09/27/18 04/07/19 History cholecalciferol (vitamin D3) 1,000 unit PO DAILY 09/27/18 04/07/19 History [Vitamin D3] lysine [L-Lysine] 2 tab PO PRN PRN 09/27/18 04/07/19 History multivit,Ca,csgg-AL-zjrhws-lut 1 tab PO DAILY 09/27/18 04/07/19 History [Complete Multi] Berberine 1 dose PO DIRECTED PRN 04/07/19 04/07/19 History esomeprazole magnesium 20 mg PO DAILY 04/07/19 04/07/19 History Allergies Allergy/AdvReac Type Severity Reaction Status Date / Time No Known Drug Allergies Allergy Verified 04/16/19 12:31 Review of Systems Constitutional Constitutional: Denies fever(s) Eyes Eyes: Denies bulging eyes ENT Ears, Nose, Mouth, and Throat: No lip swelling Cardiovascular Cardiovascular: Denies generalize swelling Respiratory Respiratory: Denies stridor Gastrointestinal Gastrointestinal: Denies coffee ground emesis Musculoskeletal Musculoskeletal: Denies loss of height Integumentary/Breasts Skin/Breast: Denies wounds Neurologic Neurologic: Denies abnormal speech and Denies confusion Psychiatric Psychiatric: Denies confusion and Denies tactile hallucinations Endocrine Endocrine: Denies deepening of the voice Hematologic/Lymphatic Hematologic/Lymphatic: Denies lymphadenopathy Allergic/Immunologic Allergic/Immunologic: Denies lip swelling Exam Vital Signs (past 8 hours): - 04/16/19 12:25 04/16/19 13:02 04/16/19 14:52 Temperature 97.4 F L Pulse Rate 62 60 58 L Respiratory Rate 17 18 18 Blood Pressure 135/89 Blood Pressure [Left Arm] 147/82 H 109/69 Pulse Oximetry 99 99 99 04/16/19 16:30 04/16/19 17:50 04/16/19 19:40 Temperature 97.2 F L 97.3 F L Pulse Rate 60 56 L 56 L Respiratory Rate 18 18 16 Blood Pressure 126/78 125/77 Blood Pressure [Left Arm] 144/76 H Pulse Oximetry 95 97 97 Oxygen Delivery Method Room Air Oxygen Flow Rate 0 Const General: cooperative and healthy appearing Orientation: alert [facility] Head: normal to inspection Nose: nares normal Mouth: oral mucosae normal and lip normal Eyes Eyelids: eyelids normal Conjunctivae: conjunctivae normal Sclera: sclerae normal Neck Neck: supple and other (No thyromegally) Chest Chest: other (LCTAB , regular respiratory effort) Cardio Rhythm: regular rhythm Heart Sounds: S1 normal, S2 normal, no gallops, no murmurs and no rubs Skin General: no rashes or lesions noted Neuro General: alert and awake Psych Appearance: grossly normal Affect: normal affect Objective Labs Result Diagrams: 04/16/19 12:26 04/16/19 12:26 Labs: Laboratory Results - last 24 hr 04/16/19 04/16/19 04/16/19 12:26 12:26 12:26 WBC 7.7 RBC 4.89 Hgb 15.3 Hct 42.8 MCV 87.5 MCH 31.3 MCHC 35.7 RDW 13.0 Plt Count 272 Neut % (Auto) 61.2 Lymph % (Auto) 27.4 [place] % (Auto) 8.3 Eos % (Auto) 2.1 Baso % (Auto) 1.0 Neut # (Auto) 4700 Lymph # (Auto) 2100 [place] # (Auto) 600 Eos # (Auto) 200 Baso # (Auto) 100 PT 10.7 INR 0.9 APTT 32 Sodium 140 Potassium 4.0 Chloride 100 Carbon Dioxide 27 BUN 13 Creatinine 0.70 Estimated GFR > 60.0 BUN/Creatinine Ratio 18.6 Glucose 162 H Calcium 9.3 Total Bilirubin 0.5 AST 48 ALT 205 H Alkaline Phosphatase 98 Total Creatine Kinase 75 CK-MB (CK-2) TNP CK-MB (CK-2) Rel Index TNP Troponin I < 0.012 B-Natriuretic Peptide < 100 Total Protein 7.4 Albumin 4.6 Globulin 2.8 Albumin/Globulin Ratio 1.6 Amylase 136 H Lipase 782 H D Procalcitonin 04/16/19 12:26 WBC RBC Hgb Hct MCV MCH MCHC RDW Plt Count Neut % (Auto) Lymph % (Auto) [place] % (Auto) Eos % (Auto) Baso % (Auto) Neut # (Auto) Lymph # (Auto) [place] # (Auto) Eos # (Auto) Baso # (Auto) PT INR APTT Sodium Potassium Chloride Carbon Dioxide BUN Creatinine Estimated GFR BUN/Creatinine Ratio Glucose Calcium Total Bilirubin AST ALT Alkaline Phosphatase Total Creatine Kinase CK-MB (CK-2) CK-MB (CK-2) Rel Index Troponin I B-Natriuretic Peptide Total Protein Albumin Globulin Albumin/Globulin Ratio Amylase Lipase Procalcitonin < 0.05 Assessment & Plan Assessment & Plan narrative: 38-year-old man presents with 3 days of abdominal pain with radiation straight to the back suggestive of retroperitoneal pain found to have an elevated lipase diagnostic of a acute pancreatitis in addition found to have gallstones within the gallbladder with a minimal amount of pericholecystic fluid. His bilirubin is not elevated and his common hepatic duct is not dilated suggesting he does not have biliary duct obstruction. Diagnosis: Acute gallstone pancreatitis I suspect the small amount of pericholecystic fluid is related to pancreatic edema Plan: Admit for bowel rest, IVF, pain control Once ready for discharge would perform laparoscopic cholecystectomy with IOC prior to discharge to prevent recurrence Will continue to follow with you
--- NOTE | 2019-04-16 20:06 | P.HP_ITS ---
History of Present Illness History of Present Illness Date Patient Seen: 04/16/19 Time Patient Seen: 20:07 Chief complaint: chest pressure and abdominal pain x5 days Narrative: 38-year-old male with recent history of choledocholithiasis and gallbladder sludge presents from the ED status post worsening chest pain, right upper quadrant pain, and epigastric pain x5 days. He was scheduled to see the surgeon tomorrow for discussion of elective cholecystectomy. Was seen in the clinic today and sent to the ED for further assessment and treatment. Repeat right upper quadrant ultrasound confirmed acute cholecystitis and choledocholithiasis. Lipase in the ED was 782. Other pertinent positives included an amylase of 130 and ALT of 205. Pertinent negatives included normal white count, troponin, and EKG. Vital signs in the ED included a temperature 97.4?, pulse 62, respirations 17, blood pressure 135/89, O2 saturation 99% on room air. Patient was initially given morphine x2 with no improvement in symptoms followed by Dilaudid with good relief. He has been bolused with 2 L of fluid and is now on normal saline at 250 mL/hour. Describes his pain as a 3/10 and reports that it is no longer radiating. Zofran is controlling his nausea. Last meal was at 1:00 a.m. this mitesh muro. Recently diagnosed with diabetes, A1c 8.4 on 04/10/2019. Started metformin 850 mg p.o. q.day, 2 days prior to presentation. Symptoms predated medication start. General surgery consulting, plan is for acute cholecystectomy in 2 days. Patient History Medical History Cholecystitis without cholelithiasis (Acute) Diverticulitis (Acute) Hiatal hernia (Acute) HTN (hypertension) (Acute) Hydrocele (Acute) Liver fibrosis (Acute) NIDHI (obstructive sleep apnea) (Acute) Vertigo (Acute) Surgical History H/O hernia repair (Acute) Social History household members: significant other Smoking Status: Never smoker alcohol intake: current Family & Social History Social History: household members significant other Prior Living Arrangements House Safety & Behavioral: Feels Safe in Current Yes Environment Been Physically Hurt or No Threatened By a Person Suicidal Ideation Description None Suicide Plan Description No Plan Tobacco & Substance use: Smoking Status Never smoker alcohol intake current alcohol intake frequency a few times a month Substance Use Type does not use Meds Home Medications and Allergies Home Medications Medication Instructions Recorded Confirmed Type acyclovir 200 mg PO DIRECTED PRN 09/27/18 04/07/19 History cholecalciferol (vitamin D3) 1,000 unit PO DAILY 09/27/18 04/07/19 History [Vitamin D3] lysine [L-Lysine] 2 tab PO PRN PRN 09/27/18 04/07/19 History multivit,Ca,nmgt-HR-phudnu-lut 1 tab PO DAILY 09/27/18 04/07/19 History [Complete Multi] Berberine 1 dose PO DIRECTED PRN 04/07/19 04/07/19 History esomeprazole magnesium 20 mg PO DAILY 04/07/19 04/07/19 History Allergies Allergy/AdvReac Type Severity Reaction Status Date / Time No Known Drug Allergies Allergy Verified 04/16/19 12:31 Review of Systems Review of Systems ROS Unobtainable: All systems reviewed & are unremarkable except as noted in HPI and below Exam Vital Signs (past 8 hours): - 04/16/19 12:25 04/16/19 13:02 04/16/19 14:52 Temperature 97.4 F L Pulse Rate 62 60 58 L Respiratory Rate 18 Blood Pressure 135/89 Blood Pressure [Left Arm] 147/82 H 109/69 Pulse Oximetry 99 99 99 04/16/19 16:30 04/16/19 17:50 04/16/19 19:40 Temperature 97.2 F L 97.3 F L Pulse Rate 60 56 L 56 L Respiratory Rate 18 18 16 Blood Pressure 126/78 125/77 Blood Pressure [Left Arm] 144/76 H Pulse Oximetry 95 97 97 Oxygen Delivery Method Room Air Oxygen Flow Rate 0 Narrative Exam Narrative: GENERAL: Alert and oriented, appearing stated age and in no acute distress. HEENT: Head normocephalic/atraumatic. Pupils equal, round, and reactive to light and accomodation. Extraocular muscles intact. Tympanic membranes clear. Nasal mucosa moist, septum midline. Oral mucosa moist, no lesions. Neck soft and supple, no lymphadenopathy. LUNGS: Clear to ausculation bilaterally, no wheezes, rhonchi or rales. CV: Normal S1 and S2 with regular rate and rhythm, no audible murmurs, rubs or gallops. ABDOMEN: Soft, diffusely tender especially over the epigastrium and right upper quadrant, unable to tolerate light palpation, non-distended, no organomegaly. Positive bowel sounds. EXTREMITIES: No clubbing, cyanosis, or edema. NEURO: Cranial nerves II through XII grossly intact, no focal deficits. PSYCH: Alert and oriented x 3. SKIN: No concerning lesions. Objective Labs Result Diagrams: 04/16/19 12:26 04/16/19 12:26 Labs: Laboratory Results - last 24 hr 04/16/19 04/16/19 04/16/19 12:26 12:26 12:26 WBC 7.7 RBC 4.89 Hgb 15.3 Hct 42.8 MCV 87.5 MCH 31.3 MCHC 35.7 RDW 13.0 Plt Count 272 Neut % (Auto) 61.2 Lymph % (Auto) 27.4 [place] % (Auto) 8.3 Eos % (Auto) 2.1 Baso % (Auto) 1.0 Neut # (Auto) 4700 Lymph # (Auto) 2100 [place] # (Auto) 600 Eos # (Auto) 200 Baso # (Auto) 100 PT 10.7 INR 0.9 APTT 32 Sodium 140 Potassium 4.0 Chloride 100 Carbon Dioxide 27 BUN 13 Creatinine 0.70 Estimated GFR > 60.0 BUN/Creatinine Ratio 18.6 Glucose 162 H Calcium 9.3 Total Bilirubin 0.5 AST 48 ALT 205 H Alkaline Phosphatase 98 Total Creatine Kinase 75 CK-MB (CK-2) TNP CK-MB (CK-2) Rel Index TNP Troponin I < 0.012 B-Natriuretic Peptide < 100 Total Protein 7.4 Albumin 4.6 Globulin 2.8 Albumin/Globulin Ratio 1.6 Amylase 136 H Lipase 782 H D Procalcitonin 04/16/19 12:26 WBC RBC Hgb Hct MCV MCH MCHC RDW Plt Count Neut % (Auto) Lymph % (Auto) [place] % (Auto) Eos % (Auto) Baso % (Auto) Neut # (Auto) Lymph # (Auto) [place] # (Auto) Eos # (Auto) Baso # (Auto) PT INR APTT Sodium Potassium Chloride Carbon Dioxide BUN Creatinine Estimated GFR BUN/Creatinine Ratio Glucose Calcium Total Bilirubin AST ALT Alkaline Phosphatase Total Creatine Kinase CK-MB (CK-2) CK-MB (CK-2) Rel Index Troponin I B-Natriuretic Peptide Total Protein Albumin Globulin Albumin/Globulin Ratio Amylase Lipase Procalcitonin < 0.05 Assessment & Plan Assessment & Plan narrative: Assessment 1: Gallstone pancreatitis, acute, will push fluids overnight with normal saline at 250 cc/hour and monitor urine output closely. Pain control with IV Dilaudid 1 mg every 3 hours as needed. Repeat CBC, lipase, amylase, and BMP in the morning. Assessment 2: Acute cholecystitis and choledocholithiasis, general surgery consulting, plan for surgery on Sunday. Assessment 3: Diabetes mellitus type 2, present on admission but new diagnosis. His younger brother also has diabetes. Holding metformin tonight as patient has not eaten for 18 hours, will likely restart tomorrow. Secondary to atypical diagnosis of diabetes in this otherwise healthy male with a normal BMI, plan is to refer patient to Endocrinology in the outpatient setting for further assessment treatment. Assessment 4: GERD, Protonix 40 mg IV b.i.d.. Assessment 5: DVT prophylaxis, Lovenox. 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
[2019-04-16 20:39] LABS: Add Manual Diff / Slide Review NO; Basophils Absolute Auto 100 /uL (0-100); Basophils Percent Auto 0.9 % (0-2); Eosinophils Absolute Auto 100 /uL (0-450); Eosinophils Percent Auto 1.9 % (2-4); Hematocrit 39.9 % (41-53); Hemoglobin 14.2 g/dL (13.5-17.5); Lymphocytes Absolute Auto 2000 /uL (1100-4500); Lymphocytes Percent Auto 32.5 % (25-40); Mean Corpuscular HGB Conc 35.5 % (30-36); Mean Corpuscular Hemoglobin 31.3 PG (26-34); Mean Corpuscular Volume 87.9 fL (80-100); Monocytes Absolute Auto 500 /uL (0-900); Monocytes Percent Auto 8.6 % (3-14); Neutrophils Absolute Auto 3500 /uL (1500-7000); Neutrophils Percent Auto 56.1 % (50-75); Platelet Count 223 X10^3/uL (150-400); Red Blood Cell Count 4.54 X10^6/uL (4.5-5.9); Red Cell Distribution Width 12.8 % (11.6-14.8); White Blood Cell Count 6.3 X10^3/uL (4.5-11.0)
[2019-04-16 20:53] LABS: Alanine Aminotransferase 291 IU/L (21-72); Albumin 3.8 g/dL (3.5-5.0); Albumin Globulin Ratio 1.5 (1.0-2.8); Alkaline Phosphatase 100 U/L (38-126); Amylase 69 U/L (30-110); Aspartate Aminotransferase 161 IU/L (17-59); BUN Creatinine Ratio 12.5 (6-22); Bilirubin Total 0.6 mg/dL (0.2-1.3); Bilirubin Unconjugated 0.4 mg/dL (0.0-1.1); Blood Urea Nitrogen 10 mg/dL (9-20); Calcium 8.4 mg/dL (8.4-10.2); Carbon Dioxide 27 mmol/L (22-32); Chloride 104 mmol/L (98-107); Estimated Glomerular Filt Rate > 60.0 mL/min (>60); Globulin 2.6 g/dL (1.7-4.1); Glucose 150 mg/dL (70-100); HEMOLYSIS < 15 (0-50); Lipase 75 U/L (23-300); Potassium 4.1 mmol/L (3.4-5.1); Sodium 140 mmol/L (137-145); Total Protein 6.4 g/dL (6.3-8.2)
[2019-04-17] VITALS (8 sets, daily range): BP systolic 135–173; BP diastolic 67–95; PULSE 55–76; RESP 15–18; TEMP 36.3–37.5; O2SAT 94–99
[2019-04-17] MEDS: HYDROMORPHONE 1 MG INJ IV ×9 (01:34→22:45)
[2019-04-17] MEDS: SODIUM CHLORIDE 0.9% 1,000 ML 250 ML IV ×5 (02:28→22:47)
--- NOTE | 2019-04-17 04:21 | PC.NURSE ---
Patient had pain 4/10, received dilaudid IVP. States his baseline resting HR is always in the 40s. States cpap helps his Gerd symptoms.
[2019-04-17] MEDS: ONDANSETRON 4 MG/2 ML INJ IV ×4 (05:37→22:44)
--- NOTE | 2019-04-17 08:04 | PM.PN.1 ---
Subjective Subjective Date Patient Seen: 04/17/19 Time Patient Seen: 08:04 Interval history: Feeling better this morning but pain uncontrolled with Dilaudid every 3 hours, nursing reports patient is needing it every 2 hours. Patient tolerated soft diet yesterday with no nausea or vomiting. Ambulating up to the bathroom. Reports excellent urine output, straw-colored. Has not had a bowel movement yet but is passing gas. Exam Vital Signs (past 8 hours): - 04/17/19 05:00 04/17/19 06:00 Temperature 97.4 F L Pulse Rate 55 L 56 L Respiratory Rate 18 16 Blood Pressure 173/95 H 140/87 Pulse Oximetry 99 95 Oxygen Delivery Method Room Air Oxygen Flow Rate 0 Narrative Exam Narrative: GENERAL: Alert and oriented, appearing stated age and in no acute distress. HEENT: Head normocephalic/atraumatic. LUNGS: Clear to ausculation bilaterally, no wheezes, rhonchi or rales. CV: Normal S1 and S2 with regular rate and rhythm, no audible murmurs, rubs or gallops. ABDOMEN: Soft, mildly tender over epigastrium and right upper quadrant, non-distended, no organomegaly. Positive bowel sounds. EXTREMITIES: No clubbing, cyanosis, or edema. NEURO: Cranial nerves II through XII grossly intact, no focal deficits. PSYCH: Alert and oriented x 3. SKIN: No concerning lesions. Objective Labs Result Diagrams: 04/17/19 08:40 04/17/19 08:40 Labs: Laboratory Results - last 24 hr 04/16/19 04/16/19 04/16/19 12:26 12:26 12:26 WBC 7.7 RBC 4.89 Hgb 15.3 Hct 42.8 MCV 87.5 MCH 31.3 MCHC 35.7 RDW 13.0 Plt Count 272 Neut % (Auto) 61.2 Lymph % (Auto) 27.4 [place] % (Auto) 8.3 Eos % (Auto) 2.1 Baso % (Auto) 1.0 Neut # (Auto) 4700 Lymph # (Auto) 2100 [place] # (Auto) 600 Eos # (Auto) 200 Baso # (Auto) 100 PT 10.7 INR 0.9 APTT 32 Sodium 140 Potassium 4.0 Chloride 100 Carbon Dioxide 27 BUN 13 Creatinine 0.70 Estimated GFR > 60.0 BUN/Creatinine Ratio 18.6 Glucose 162 H Calcium 9.3 Total Bilirubin 0.5 Conjugated Bilirubin Unconjugated Bilirubin AST 48 ALT 205 H Alkaline Phosphatase 98 Total Creatine Kinase 75 CK-MB (CK-2) TNP CK-MB (CK-2) Rel Index TNP Troponin I < 0.012 B-Natriuretic Peptide < 100 Total Protein 7.4 Albumin 4.6 Globulin 2.8 Albumin/Globulin Ratio 1.6 Amylase 136 H Lipase 782 H D Procalcitonin 04/16/19 04/16/19 04/16/19 12:26 20:30 20:30 WBC 6.3 RBC 4.54 Hgb 14.2 Hct 39.9 L MCV 87.9 MCH 31.3 MCHC 35.5 RDW 12.8 Plt Count 223 Neut % (Auto) 56.1 Lymph % (Auto) 32.5 [place] % (Auto) 8.6 Eos % (Auto) 1.9 L Baso % (Auto) 0.9 Neut # (Auto) 3500 Lymph # (Auto) 2000 [place] # (Auto) 500 Eos # (Auto) 100 Baso # (Auto) 100 PT INR APTT Sodium 140 Potassium 4.1 Chloride 104 Carbon Dioxide 27 BUN 10 Creatinine 0.80 Estimated GFR > 60.0 BUN/Creatinine Ratio 12.5 Glucose 150 H Calcium 8.4 Total Bilirubin 0.6 Conjugated Bilirubin 0.0 Unconjugated Bilirubin 0.4 AST 161 H ALT 291 H Alkaline Phosphatase 100 Total Creatine Kinase CK-MB (CK-2) CK-MB (CK-2) Rel Index Troponin I B-Natriuretic Peptide Total Protein 6.4 Albumin 3.8 Globulin 2.6 Albumin/Globulin Ratio 1.5 Amylase 69 Lipase 75 D Procalcitonin < 0.05 Assessment & Plan Assessment & Plan narrative: Assessment 1: Gallstone pancreatitis, acute. Will continue fluids and pain control. Labs pending this morning. Patient not tolerating soft diet very well, will change to liquids. Assessment 2: Acute cholecystitis and choledocholithiasis, general surgeon consulting, plan for surgery when medically stable, likely Sunday. Assessment 3: Diabetes mellitus type 2, holding metformin. Assessment 4: GERD, continue Protonix 40 mg IV b.i.d.. Assessment 5: DVT prophylaxis, Lovenox. Assessment 6: Code: Full. Quality VTE Deep Vein Thrombosis/Pulmonary Embolism Present on Admission: No
[2019-04-17] MEDS: PANTOPRAZOLE 40 MG VIAL IV ×2 (08:21→20:49)
[2019-04-17] MEDS: ENOXAPARIN 40 MG/0.4 ML SYRINGE SUBCUT (08:21)
[2019-04-17 09:08] LABS: Add Manual Diff / Slide Review NO; Basophils Absolute Auto 0 /uL (0-100); Basophils Percent Auto 0.4 % (0-2); Eosinophils Absolute Auto 100 /uL (0-450); Eosinophils Percent Auto 0.7 % (2-4); Hematocrit 40.5 % (41-53); Lymphocytes Absolute Auto 1400 /uL (1100-4500); Lymphocytes Percent Auto 18.4 % (25-40); Mean Corpuscular HGB Conc 34.6 % (30-36); Mean Corpuscular Hemoglobin 30.8 PG (26-34); Mean Corpuscular Volume 88.8 fL (80-100); Monocytes Absolute Auto 500 /uL (0-900); Monocytes Percent Auto 6.7 % (3-14); Neutrophils Absolute Auto 5700 /uL (1500-7000); Neutrophils Percent Auto 73.8 % (50-75); Platelet Count 231 X10^3/uL (150-400); Red Blood Cell Count 4.56 X10^6/uL (4.5-5.9); Red Cell Distribution Width 12.8 % (11.6-14.8); White Blood Cell Count 7.7 X10^3/uL (4.5-11.0)
[2019-04-17 09:21] LABS: Alanine Aminotransferase 242 IU/L (21-72); Albumin 3.8 g/dL (3.5-5.0); Albumin Globulin Ratio 1.5 (1.0-2.8); Alkaline Phosphatase 95 U/L (38-126); Amylase 49 U/L (30-110); Aspartate Aminotransferase 66 IU/L (17-59); BUN Creatinine Ratio 11.4 (6-22); Bilirubin Total 0.5 mg/dL (0.2-1.3); Blood Urea Nitrogen 8 mg/dL (9-20); Calcium 8.5 mg/dL (8.4-10.2); Carbon Dioxide 25 mmol/L (22-32); Chloride 101 mmol/L (98-107); Estimated Glomerular Filt Rate > 60.0 mL/min (>60); Globulin 2.6 g/dL (1.7-4.1); Glucose 191 mg/dL (70-100); HEMOLYSIS < 15 (0-50); Lipase 32 U/L (23-300); Sodium 137 mmol/L (137-145); Total Protein 6.4 g/dL (6.3-8.2)
--- NOTE | 2019-04-17 14:37 | CM.DANOTE ---
Patient is a 38 year old male who was admitted on 04/16/19 for Chest Pressure, Abd Pain. Pt has [employer] for insurance and his PCP is Dr. Patton. EMR was reviewed. Per MD, surgical consult and possible Lap Shannon for tomorrow pending pt's labs. SW met bedside with pt and explained role and pt confirms that he lives at home with his in [place] and is Independent with ADL's at baseline, does not use equipment to ambulate, and drives. Pt denies any formal DPOA at this time but would be his . Pt states he has 2 prior surgeries for hernia and another medical need but denies any hx of HH or SNF. Pt works and is very active at baseline. Spouse is available for assist if needed at discharge. Discharge planning needs unclear at this time. Plan: SW to follow after surgery to determine any d/c planning needs and if pt will be safe for d/c home with spouse support when stable. KYLEE Montoya Discharge Planning/Care Management CM Discharge Assessment Start: 04/17/19 14:35 Freq: Status: Active Protocol: Document 04/17/19 14:36 BF (Rec: 04/17/19 14:37 BF [id number]) Discharge Planning Assessment Assigned Spray Stainer SAHIL Eisenberg Advance Directives? No History Provided By Patient,Medical Record Has Patient been admitted in last 30 No days? Prior Living Arrangements House Household Members significant other Type of transporation used prior to Drives own vehicle admit Independent with ADL's Yes Is patient alert and oriented? Yes Caregiver for Another No Comment Pending surgery maybe tomorrow Discharge Plan Home Transportation Arrangement Spouse can likely provide transport Additional Comment Waiting for surgery to determine needs Review Status In Process Please Provide Date Initial DC 04/17/19 Assessment Was Performed Next Review Type Continued Stay Review
--- NOTE | 2019-04-17 14:39 | PM.PN.1 ---
Subjective Subjective Date Patient Seen: 04/17/19 Time Patient Seen: 09:00 Interval history: Patient still with fairly significant abdominal pain, increased abdominal distention, tolerate a few bites of food this morning Exam Vital Signs (past 8 hours): - 04/17/19 08:00 04/17/19 13:00 Temperature 97.7 F 97.8 F Pulse Rate 70 63 Respiratory Rate 15 16 Blood Pressure 139/79 139/87 Pulse Oximetry 96 94 Oxygen Delivery Method Room Air Oxygen Flow Rate 0 Narrative Exam Narrative: No acute distress Breathing comfortably on room air Regular rate and rhythm Abdomen distended, dull to percussion, tender to palpation over right upper quadrant as well as epigastrium. Objective Labs Result Diagrams: 04/17/19 08:40 04/17/19 08:40 Labs: Laboratory Results - last 24 hr 04/16/19 04/16/19 04/17/19 20:30 20:30 08:40 WBC 6.3 7.7 RBC 4.54 4.56 Hgb 14.2 14.0 Hct 39.9 L 40.5 L MCV 87.9 88.8 MCH 31.3 30.8 MCHC 35.5 34.6 RDW 12.8 12.8 Plt Count 223 231 Neut % (Auto) 56.1 73.8 Lymph % (Auto) 32.5 18.4 L [place] % (Auto) 8.6 6.7 Eos % (Auto) 1.9 L 0.7 L Baso % (Auto) 0.9 0.4 Neut # (Auto) 3500 5700 Lymph # (Auto) 2000 1400 [place] # (Auto) 500 500 Eos # (Auto) 100 100 Baso # (Auto) 100 0 Sodium 140 Potassium 4.1 Chloride 104 Carbon Dioxide 27 BUN 10 Creatinine 0.80 Estimated GFR > 60.0 BUN/Creatinine Ratio 12.5 Glucose 150 H Calcium 8.4 Total Bilirubin 0.6 Conjugated Bilirubin 0.0 Unconjugated Bilirubin 0.4 AST 161 H ALT 291 H Alkaline Phosphatase 100 Total Protein 6.4 Albumin 3.8 Globulin 2.6 Albumin/Globulin Ratio 1.5 Amylase 69 Lipase 75 D 04/17/19 08:40 WBC RBC Hgb Hct MCV MCH MCHC RDW Plt Count Neut % (Auto) Lymph % (Auto) [place] % (Auto) Eos % (Auto) Baso % (Auto) Neut # (Auto) Lymph # (Auto) [place] # (Auto) Eos # (Auto) Baso # (Auto) Sodium 137 Potassium 4.0 Chloride 101 Carbon Dioxide 25 BUN 8 L Creatinine 0.70 Estimated GFR > 60.0 BUN/Creatinine Ratio 11.4 Glucose 191 H Calcium 8.5 Total Bilirubin 0.5 Conjugated Bilirubin Unconjugated Bilirubin AST 66 H ALT 242 H Alkaline Phosphatase 95 Total Protein 6.4 Albumin 3.8 Globulin 2.6 Albumin/Globulin Ratio 1.5 Amylase 49 Lipase 32 D Assessment & Plan Assessment & Plan narrative: 38-year-old man with diabetes type 2, admitted for gallstone pancreatitis hospital day 2. Awaiting resolution of pancreatitis before cholecystectomy Tentatively scheduled for cholecystectomy tomorrow, NPO at midnight Will continue to follow with you Quality VTE Deep Vein Thrombosis/Pulmonary Embolism Present on Admission: No
[2019-04-18] VITALS (18 sets, daily range): BP systolic 113–157; BP diastolic 70–90; PULSE 55–94; RESP 13–21; TEMP 36.6–37.5; O2SAT 92–97
--- NOTE | 2019-04-18 | PATH_ITS ---
[facility] Accession Number: [id number] . 01 Material submitted: . PART A: liver - RIGHT LOBE LIVER BIOPSY PART B: gallbladder - GALLBLADDER . 01 Clinical history: . CHEST PRESSURE AND ABDOMINAL PAIN X5 DAYS . 02 Diagnosis: A. Right Lobe Of Liver, Biopsy: Liver with moderate steatosis (40%), preodminately macrovesicular; please see comment. No evidence of fibrosis or cirrhosis on trichrome stain. . B. Gallbladder, Cholecystectomy: Cholelithiasis with chronic active cholecystitis. No evidence of neoplasm. . . [facility] 04/22/2019 1514 Local . 02 Comment: A. Sections are of liver parenchyma with moderate macrovesicular steatosis (approximately 40%). Though scattered neutrophils are seen within the hepatic parenchyma, there is no significant chronic inflammation or ballooned hepatocytes identified. There is no significant portal inflammation. There is no significant fibrosis on a trichrome stain. There is no evidence of large intrahepatocytic globules of alpha 1 antitrypsin deficiency on a PAS stain with diastase. There is no significant iron deposition on an iron stain. The overall features are consistent with steatosis without steatohepatitis. . 02 Electronically signed: . Richard Romero MD, PhD, Pathologist NPI- [id number] . 01 Gross description: . (A) Received in formalin, labeled right lobe liver biopsy, are multiple pieces of yellow-orange rubbery tissue (2.0 x 0.9 x 0.1 cm in aggregate). Filtered and entirely submitted in cassette A1. (B) Received in formalin, labeled gallbladder, is an intact gallbladder (length-9.5 cm, diameter-4.0 cm) with pina-rosario smooth shiny serosa and a patent cystic duct. No lymph nodes are identified. The lumen contains brown gelatinous material containing multiple yellow-orange friable calculi (7.5 x 1.1 x 0.2 cm in aggregate). The mucosa is rosario smooth and flat. The wall is up to 0.1 cm thick. No nodules, masses or lesions are identified. Section code: (B1) cystic duct resection margin and two serial sections from the body; (B2) two longitudinal sections from the fundus. ([id number]) /MRV 04/19/2019 2101 Local . 02 Pathologist provided ICD-10: K76.0, K80.60 . 02 CPT . 675620, [id number], 439143, [id number], [id number] Performed at: 01 [facility] [address] [id number] MD Endy Bui MD Phone: [phone] Performed at: 02 [facility] [address] [place], [place] [id number] MD Brenda Ahn MD Phone: [phone]
--- NOTE | 2019-04-18 | DI.RAD.S_ITS ---
PROCEDURE: XR CHOLANGIOGRAM OPERATIVE INDICATIONS: LINDA COMPARISON: None. FINDINGS: Biliary ducts: The surgeon injected contrast into the biliary ducts after cannulation of the cystic duct stump. Visualized intra- and extrahepatic bile ducts are normal in caliber, without strictures. No intraluminal filling defects to suggest retained ductal stones or sludge. No evidence for iatrogenic ductal injury. Duodenum: Contrast flows promptly through the sphincter of Oddi into the duodenum, which appears normal in caliber. IMPRESSION: Normal operative cholangiogram. Dictated by: Josh Lr M.D. on 04/18/2019 at 17:01 Approved by: Josh Lr M.D. on 04/18/2019 at 17:01
--- NOTE | 2019-04-18 00:50 | PC.NURSE ---
[employer] Note: 0030: Resting in bed. Vital signs stable. IV in place in rt forearm with NS infusing at 250cc/hr. Pt states his pain level at this time is 2/10 and declines any pain medication. NPO for surgery at 1pm. CBG 157.
--- NOTE | 2019-04-18 00:55 | PC.NURSE ---
Human Performance Professor Note: 0045: Awake, vital signs stable. Resting in bed. IV in place in lt arm. Dressing to rt leg cdi, with fantasma wrap intact over dressing; Yosvany drsg intact and green light is on. Fresh ice to rt knee.
[2019-04-18] MEDS: HYDROMORPHONE 1 MG INJ IV ×5 (02:28→13:11)
[2019-04-18] MEDS: SODIUM CHLORIDE 0.9% 1,000 ML 250 ML IV ×3 (02:29→13:12)
[2019-04-18 05:59] LABS: Add Manual Diff / Slide Review NO; Basophils Absolute Auto 0 /uL (0-100); Basophils Percent Auto 0.6 % (0-2); Eosinophils Absolute Auto 100 /uL (0-450); Hematocrit 40.1 % (41-53); Hemoglobin 13.8 g/dL (13.5-17.5); Lymphocytes Absolute Auto 1600 /uL (1100-4500); Lymphocytes Percent Auto 26.7 % (25-40); Mean Corpuscular HGB Conc 34.4 % (30-36); Mean Corpuscular Hemoglobin 30.6 PG (26-34); Monocytes Absolute Auto 600 /uL (0-900); Neutrophils Absolute Auto 3800 /uL (1500-7000); Neutrophils Percent Auto 61.7 % (50-75); Platelet Count 219 X10^3/uL (150-400); Red Blood Cell Count 4.51 X10^6/uL (4.5-5.9); Red Cell Distribution Width 12.8 % (11.6-14.8); White Blood Cell Count 6.1 X10^3/uL (4.5-11.0)
[2019-04-18 06:10] LABS: Alanine Aminotransferase 188 IU/L (21-72); Albumin 3.8 g/dL (3.5-5.0); Albumin Globulin Ratio 1.5 (1.0-2.8); Alkaline Phosphatase 89 U/L (38-126); Amylase 48 U/L (30-110); Aspartate Aminotransferase 41 IU/L (17-59); BUN Creatinine Ratio 8.6 (6-22); Bilirubin Total 0.6 mg/dL (0.2-1.3); Blood Urea Nitrogen 6 mg/dL (9-20); Calcium 8.7 mg/dL (8.4-10.2); Carbon Dioxide 30 mmol/L (22-32); Chloride 103 mmol/L (98-107); Estimated Glomerular Filt Rate > 60.0 mL/min (>60); Globulin 2.6 g/dL (1.7-4.1); Glucose 158 mg/dL (70-100); HEMOLYSIS < 15 (0-50); Potassium 3.9 mmol/L (3.4-5.1); Sodium 140 mmol/L (137-145); Total Protein 6.4 g/dL (6.3-8.2)
[2019-04-18 06:11] LABS: Lipase 27 U/L (23-300)
--- NOTE | 2019-04-18 07:22 | P.PN_ITS ---
Subjective Subjective Date Patient Seen: 04/18/19 Time Patient Seen: 07:22 Interval history: Dinner not go down very well last night, had emesis x1, felt better after that. Denies any further nausea or vomiting. Has been NPO since midnight, planning for cholecystectomy today. Pain is controlled with Dilaudid 1 mg every 2 hours, missed a dose while sleeping, now feeling uncontrolled. Otherwise, diuresing well, fluids remain at 250 cc/hour. Asking about whether or not he will have liver biopsy at time of cholecystectomy due to his fatty liver disease. Exam Vital Signs (past 8 hours): - 04/18/19 05:00 Temperature 98.7 F Pulse Rate 56 L Respiratory Rate 18 Blood Pressure 157/90 H Pulse Oximetry 97 Oxygen Delivery Method Room Air Oxygen Flow Rate 0 Narrative Exam Narrative: GENERAL: Alert and oriented, appearing stated age and in no acute distress. HEENT: Head normocephalic/atraumatic. LUNGS: Clear to ausculation bilaterally, no wheezes, rhonchi or rales. CV: Normal S1 and S2 with regular rate and rhythm, no audible murmurs, rubs or gallops. ABDOMEN: Soft, mildly tender epigastrium and right upper quadrant non- distended, no organomegaly. Hypoactive bowel sounds. EXTREMITIES: No clubbing, cyanosis, or edema. NEURO: Cranial nerves II through XII grossly intact, no focal deficits. PSYCH: Alert and oriented x 3. SKIN: No concerning lesions. Objective Labs Result Diagrams: 04/18/19 05:25 04/18/19 05:25 Labs: Laboratory Results - last 24 hr 04/17/19 04/17/19 04/18/19 08:40 08:40 05:25 WBC 7.7 6.1 RBC 4.56 4.51 Hgb 14.0 13.8 Hct 40.5 L 40.1 L MCV 88.8 89.0 MCH 30.8 30.6 MCHC 34.6 34.4 RDW 12.8 12.8 Plt Count 231 219 Neut % (Auto) 73.8 61.7 Lymph % (Auto) 18.4 L 26.7 [place] % (Auto) 6.7 10.0 Eos % (Auto) 0.7 L 1.0 L Baso % (Auto) 0.4 0.6 Neut # (Auto) 5700 3800 Lymph # (Auto) 1400 1600 [place] # (Auto) 500 600 Eos # (Auto) 100 100 Baso # (Auto) 0 0 Sodium 137 Potassium 4.0 Chloride 101 Carbon Dioxide 25 BUN 8 L Creatinine 0.70 Estimated GFR > 60.0 BUN/Creatinine Ratio 11.4 Glucose 191 H Calcium 8.5 Total Bilirubin 0.5 AST 66 H ALT 242 H Alkaline Phosphatase 95 Total Protein 6.4 Albumin 3.8 Globulin 2.6 Albumin/Globulin Ratio 1.5 Amylase 49 Lipase 32 D 04/18/19 04/18/19 05:25 05:25 WBC RBC Hgb Hct MCV MCH MCHC RDW Plt Count Neut % (Auto) Lymph % (Auto) [place] % (Auto) Eos % (Auto) Baso % (Auto) Neut # (Auto) Lymph # (Auto) [place] # (Auto) Eos # (Auto) Baso # (Auto) Sodium 140 Potassium 3.9 Chloride 103 Carbon Dioxide 30 BUN 6 L Creatinine 0.70 Estimated GFR > 60.0 BUN/Creatinine Ratio 8.6 Glucose 158 H Calcium 8.7 Total Bilirubin 0.6 AST 41 ALT 188 H Alkaline Phosphatase 89 Total Protein 6.4 Albumin 3.8 Globulin 2.6 Albumin/Globulin Ratio 1.5 Amylase 48 Lipase 27 Assessment & Plan Assessment & Plan narrative: Assessment 1: Gallstone pancreatitis, acute. Will continue fluids and pain control. Plan is for cholecystectomy today. May benefit from post procedure ERCP. Assessment 2: Acute cholecystitis and choledocholithiasis, general surgeon consulting, surgery today. Will have surgeon resume diet at his discretion. Assessment 3: Fatty liver disease, advised patient to discuss livery biopsy with surgeon. Assessment 4: GERD, continue Protonix 40 mg IV b.i.d.. Assessment 5: DVT prophylaxis, holding lovenox prior to surgery. Will have surgeon resume at his discretion. Assessment 6: Code: Full. Time Spent With Patient Time with patient: 25 - 35 minutes Quality VTE Deep Vein Thrombosis/Pulmonary Embolism Present on Admission: No
[2019-04-18] MEDS: ONDANSETRON 4 MG/2 ML INJ IV (08:09)
[2019-04-18] MEDS: PANTOPRAZOLE 40 MG VIAL IV ×2 (08:09→21:44)
--- NOTE | 2019-04-18 14:18 | P.PN_ITS ---
Subjective Subjective Date Patient Seen: 04/18/19 Time Patient Seen: 14:18 Interval history: Abdominal pain nearly resolved, feeling well Was able to tolerate over L of fluids yesterday Ready for surgery Exam Vital Signs (past 8 hours): - 04/18/19 08:00 04/18/19 12:00 04/18/19 14:06 Temperature 99.5 F 98.7 F 98.5 F Pulse Rate 55 L 57 L 61 Respiratory Rate 18 16 16 Blood Pressure 147/83 H 152/87 H 147/90 H Pulse Oximetry 92 96 95 Oxygen Delivery Method Room Air Oxygen Flow Rate 0 Narrative Exam Narrative: Minimally tender in the epigastrium and mid abdominal region, oddly still with some tenderness over the gallbladder fossa. Breathing comfortably on room air Regular rate and rhythm Objective Labs Result Diagrams: 04/18/19 05:25 04/18/19 05:25 Labs: Laboratory Results - last 24 hr 04/18/19 04/18/19 04/18/19 05:25 05:25 05:25 WBC 6.1 RBC 4.51 Hgb 13.8 Hct 40.1 L MCV 89.0 MCH 30.6 MCHC 34.4 RDW 12.8 Plt Count 219 Neut % (Auto) 61.7 Lymph % (Auto) 26.7 [place] % (Auto) 10.0 Eos % (Auto) 1.0 L Baso % (Auto) 0.6 Neut # (Auto) 3800 Lymph # (Auto) 1600 [place] # (Auto) 600 Eos # (Auto) 100 Baso # (Auto) 0 Sodium 140 Potassium 3.9 Chloride 103 Carbon Dioxide 30 BUN 6 L Creatinine 0.70 Estimated GFR > 60.0 BUN/Creatinine Ratio 8.6 Glucose 158 H Calcium 8.7 Total Bilirubin 0.6 AST 41 ALT 188 H Alkaline Phosphatase 89 Total Protein 6.4 Albumin 3.8 Globulin 2.6 Albumin/Globulin Ratio 1.5 Amylase 48 Lipase 27 Assessment & Plan Assessment & Plan narrative: 38-year-old man admitted with gallstone panc reatitis -now with vast majority of inflammation resolved, stable, well Plan for cholecystectomy ahead and discharge Due to presumed recent common bile duct obstruction -will confirm is open with IOC Patient has a history of presumptively diagnosed NAFL -he has never received a liver biopsy. Will perform this today Risks and benefit of procedure discussed including bleeding, infection, bile du ct injury, need to convert to open All questions answered Pt Ready to proceed Quality VTE Deep Vein Thrombosis/Pulmonary Embolism Present on Admission: No
[2019-04-18] MEDS: LACTATED RINGERS 1,000 ML 42 ML IV ×2 (14:30→16:52)
--- NOTE | 2019-04-18 14:43 | PC.NURSE ---
Off to OR for tiffany. Recieved Dilaudid prior to transport, transport made aware. Pt has received 3 dose of dilaudid w/fair relief. Also got protonix and a dose of zofran for nausea. Pt's SO is here and she went down with him to the pre op area. Pt had no concerns. Cbg 118 prior to leaving.
[2019-04-18] MEDS: CEFOTETAN 2 GM/50 ML PIGGYBACK IV (14:46)
[2019-04-18] MEDS: metroNIDAZOLE 500 MG/100 ML PIGGYBACK 100 MG IV (15:01)
--- NOTE | 2019-04-18 15:20 | SUR.OPER ---
Supine on padded OR bed, head on pillow, arms secured on padded arm boards at <90 degrees abduction, legs uncrossed, safety belt at thigh, tape over blanket over lower legs.
[2019-04-18] MEDS: IOPAMIDOL 15 ML VIAL INJ (15:35)
[2019-04-18] MEDS: BUPIVACAINE 0.5% W/ EPI (PF) VIAL 30 ML INJ (15:36)
--- NOTE | 2019-04-18 18:01 | PM.OP.1 ---
Operative Date/Time/Diagnoses Date of procedure: 04/18/19 Time of procedure: 17:00 Pre-op diagnosis: Gallstone pancreatitis, CONDON/NAFL Post-op diagnosis: other (1) acute cholecystitis, 2)gallstone pancreatitis 3) CONDON/NAFL) Procedure & Clinicians Procedure: 1) Laproscopic Cholecystectomy 2) IOC 3) Laproscopic liver bipsy - Segment 5 Same procedure as scheduled: Yes Indications: 38 yo man admitted with pancreatitis, found to have gallstones on US. After midline abd pain resolved taken to OR. Surgeon: Lee Minaya Click Yes if Unassisted: Yes Anesthesia Type: General Operative Notes Findings: 1) Gallbladder acutely inflamed 2) IOC with good retrograde flow beyond R and L hepatic ducts, short cystic duct ~1cm, no filling defects, good egress into duodenum 3) Hepatic bx taken x 4 in segment 5 Closure Type: primary Specimen(s): other (Liver core needle bx, gallbladder and contents) Estimated Blood Loss (mL): 200 Procedure in detail: Pt was taken to the OR, he was intubated without incident. He was prepped and draped in the usual sterile fashion and a time-out was completed. Entry into the abdomen was performed using Veress needle technique. A small stab incision was made at jarquin's point after an orogastric tube had been placed on suction. A Veress needle was then advanced adjacent to the costal margin on the left with a distinct click felt upon entering the abdomen, there is no succus or blood on aspiration and there was a confirmatory saline drop test. Initial insufflation pressures were low. Abdomen was insufflated to 15 mm of mercury a small incision was placed just superior to the umbilicus and a 5 mm port was advanced through the layers of the abdominal wall using Visiport technique until the dark area of the insufflated abdomen was encountered. At this point I inspected the Veress needle entry site there was no bleeding or injury and the Veress needle was removed without incident. Two 5 mm ports were then placed in the right upper quadrant and an additional 11 mm port placed in the epigastrium. Patient was rotated into reverse Trendelenburg position with the right side up. Inspecting the gallbladder it appeared to be tensely dilated with wall edema and some minimally adherent greater omentum. I 1st proceeded with the liver biopsy. A small stab incision was made near the costal margin on the right side through this a long Artis-Cut needle was advanced into the abdomen. Just to the right of the gallbladder at the inferior aspect of the liver i.e. segment 5 for core needle biopsies were taken. After each biopsy -the entry site into Merrill's capsule was coagulated with excellent hemostasis. Of the biopsies taken there were at least 2 excellent cores. These were sent to pathology. Of note: During the gallbladder dissection it was noted that 1 of the needle passes had exited the liver on the inferior aspect of segment 5 -inspecting the area very thoroughly there was a small hole in the peritoneum overlying the retroperitoneum in the right upper quadrant behind the liver. There was no bleeding from this, it was in the vicinity of the superior aspect of the transverse colon wall but well lateral of the duodenum. A significant amount of time was spent laproscopically opening the area and compressing the transverse colon to ensure that there was no intestinal contents coming from the needle injury -there was none. I felt confident that there was no visceral or vascular injury from the needle tract. However out of an abundance of caution at the end of the case a 19 [place] Robert drain was left immediately adjacent to the biopsy needle tract so any unexpected intestinal contents would be controlled as well as readily diagnosed by the drain output. Then proceeded with the cholecystectomy: the gallbladder was tense and needed decompression via decompression needle. The fundus of the gallbladder was then grasped and elevated cephalad within a tractor. The greater omentum was easily peeled off. The infundibulum of the gallbladder was grasped retracted laterally. The infundibulum appeared to be fairly close to the portal structures as a consequence I incised the visceral peritoneum of the gallbladder with hook cautery somewhat high on the infundibulum. The visceral peritoneum was incised on the medial lateral aspect of the gland as well to generate mobility. Using blunt dissection I peeled the distal peritoneum off the infundibulum and followed the infundibulum until it narrowed towards the cystic duct -there is an obvious stone at the neck of the gallbladder with chronic fibrotic changes in the adjacent tissue. Painstakingly this was peeled down the cystic duct until a segment of softer duct was identified that could be more easily mobilized. Using a [place] and spreading this was dissected free circumferentially. The cystic artery was identified running parallel to the -the artery was dissected free of the adjacent tissues -clipped and divided without incident. The cystic artery was clearly seen to pass directly into the gallbladder. With the artery divided there was some additional length given to the cystic duct. I then proceeded to perform the cholangiogram: A clip was placed at the gallbladder neck. A small ductotomy was made with Metzenbaum scissors just distal to this. -the cystic duct was milked back towards the ductotomy site and 2 small stones were extracted from the cystic duct itself. At this point a cholangiogram catheter was threaded into the cystic duct and the cholangiogram was shot -it was clean with findings as above. The cholangiogram catheter was then removed. Two clips were then placed on the distal duct being very careful not to encroach on the nearby common bile duct. The cystic duct was then divided. The gallbladder was then reflected out the gallbladder fossa using Bovie cautery to from the hepatic tissue. It was placed in Endo-Catch bag and later removed from the abdomen via the epigastric port. there is several areas of ooze on the hepatic tissue of the gallbladder fossa this was easily controlled with Bovie cautery. Next the gallbladder was removed via the epigastric port site. The right upper quadrant was then copiously irrigated and suctioned dry hemostasis was confirmed. The hepatic biopsy sites were reinspected closely there were noted to be hemostatic as well. Again the retroperitoneal needle tract was inspected there was no blood or intestinal contents. A 19 [place] Robert drain was left immediately adjacent to this area. The fascial defect at the epigastric port site was then closed using 3 interrupted 0 Vicryl sutures using a trans fascial suture passer device. Ports were then withdrawn under direct visualization. Skin was closed using monofilament absorbable suture in a subcuticular fashion followed by skin glue. Drain was sutured in place. Patient was extubated and brought to PACU without incident Complications: none Post-operative Condition: stable Disposition: PACU Plan for aftercare: To floor
[2019-04-18] MEDS: LACTATED RINGERS 1,000 ML 75 ML IV (20:43)
[2019-04-18] MEDS: ACETAMINOPHEN 325 MG TABLET PO (20:43)
[2019-04-18] MEDS: OXYCODONE IR 5 MG TABLET PO (22:00)
[2019-04-19 00:01] VITALS: TEMP 38.1
[2019-04-19] MEDS: ACETAMINOPHEN 325 MG TABLET PO ×3 (00:04→13:05)
[2019-04-19 00:32] VITALS: TEMP 38.1
[2019-04-19] MEDS: HYDROMORPHONE 1 MG INJ IV ×3 (00:32→06:01)
[2019-04-19] MEDS: OXYCODONE IR 5 MG TABLET PO (03:10)
[2019-04-19 03:12] VITALS: BP 103/56; PULSE 62; RESP 15; TEMP 36.8; O2SAT 98
[2019-04-19 06:16] LABS: Add Manual Diff / Slide Review NO; Basophils Absolute Auto 0 /uL (0-100); Basophils Percent Auto 0.1 % (0-2); Eosinophils Absolute Auto 0 /uL (0-450); Hematocrit 37.6 % (41-53); Hemoglobin 13.4 g/dL (13.5-17.5); Lymphocytes Absolute Auto 900 /uL (1100-4500); Lymphocytes Percent Auto 11.3 % (25-40); Mean Corpuscular HGB Conc 35.6 % (30-36); Mean Corpuscular Hemoglobin 31.2 PG (26-34); Mean Corpuscular Volume 87.6 fL (80-100); Monocytes Absolute Auto 700 /uL (0-900); Monocytes Percent Auto 9.6 % (3-14); Neutrophils Absolute Auto 6000 /uL (1500-7000); Platelet Count 229 X10^3/uL (150-400); Red Blood Cell Count 4.29 X10^6/uL (4.5-5.9); Red Cell Distribution Width 12.5 % (11.6-14.8); White Blood Cell Count 7.6 X10^3/uL (4.5-11.0)
[2019-04-19 06:27] LABS: BUN Creatinine Ratio 12.9 (6-22); Blood Urea Nitrogen 9 mg/dL (9-20); Carbon Dioxide 32 mmol/L (22-32); Chloride 100 mmol/L (98-107); Estimated Glomerular Filt Rate > 60.0 mL/min (>60); Glucose 152 mg/dL (70-100); HEMOLYSIS < 15 (0-50); Magnesium 1.8 mg/dL (1.6-2.3); Potassium 4.1 mmol/L (3.4-5.1); Sodium 138 mmol/L (137-145)
[2019-04-19] MEDS: OXYCODONE IR 10 MG TABLET PO ×2 (06:31→10:08)
--- NOTE | 2019-04-19 07:36 | PM.PN.1 ---
Subjective Subjective Date Patient Seen: 04/19/19 Time Patient Seen: 07:37 Interval history: Patient with moderate amount of pain but feeling a little better than he did yesterday. Postop day 1. Otherwise seems to be doing well. No major issues. Slept some period Exam Vital Signs (past 8 hours): - 04/19/19 00:01 04/19/19 00:32 04/19/19 03:12 Temperature 100.5 F H 100.5 F H 98.2 F Pulse Rate 62 Respiratory Rate 15 Blood Pressure 103/56 L Pulse Oximetry 98 Oxygen Delivery Method Nasal Cannula Oxygen Flow Rate 4 Narrative Exam Narrative: Alert male in no acute distress Objective Labs Result Diagrams: 04/19/19 05:58 04/19/19 05:58 Labs: Laboratory Results - last 24 hr 04/19/19 04/19/19 05:58 05:58 WBC 7.6 RBC 4.29 L Hgb 13.4 L Hct 37.6 L MCV 87.6 MCH 31.2 MCHC 35.6 RDW 12.5 Plt Count 229 Neut % (Auto) 79.0 H Lymph % (Auto) 11.3 L [place] % (Auto) 9.6 Eos % (Auto) 0.0 L Baso % (Auto) 0.1 Neut # (Auto) 6000 Lymph # (Auto) 900 L [place] # (Auto) 700 Eos # (Auto) 0 Baso # (Auto) 0 Sodium 138 Potassium 4.1 Chloride 100 Carbon Dioxide 32 BUN 9 Creatinine 0.70 Estimated GFR > 60.0 BUN/Creatinine Ratio 12.9 Glucose 152 H Calcium 9.0 Magnesium 1.8 Assessment & Plan Assessment & Plan narrative: Acute cholecystitis and choledocholithiasis with gallstone pancreatitis is day 1 postop. No active medical issues not related to this. Will sign off and follow a long. As per surgeons. Quality VTE Deep Vein Thrombosis/Pulmonary Embolism Present on Admission: No
--- NOTE | 2019-04-19 07:38 | PC.NURSE ---
Pt vss, lung sounds clear bilaterally. Pt complains pain in IV site, IV site infiltrated and removed. Pt had new site started in Left AC. Pt complains of a lot of pain this night 6-02/05. Pt medicated Q4 Oxycodone 10mg and Dilaudid 1mg. Pt's drain site is clean/dry and intact, abdomen soft and tender to the touch. Pt NPO except ice chips and a few sips of water for medication.
[2019-04-19 08:00] VITALS: BP 127/84; PULSE 63; RESP 16; TEMP 36.8; O2SAT 95
[2019-04-19] MEDS: PANTOPRAZOLE 40 MG VIAL IV (09:19)
--- NOTE | 2019-04-19 09:22 | PM.DS.1 ---
History of Present Illness History of Present Illness Date Patient Seen: 04/19/19 Time Patient Seen: 09:22 Chief complaint: chest pressure and abdominal pain x5 days Narrative: 38-year-old man with history of gallstones presented to the emergency department was significant upper abdominal pain an lipase greater than 700. Ultrasound demonstrated no wall thickening but numerous stones. He was diagnosed with gallstone pancreatitis and admitted. Patient also had a significant amount of tenderness at the gallbladder fossa. Acute cholecystitis was considered. Discharge Providers Provider Date of admission: 04/16/19 16:17 Discharge Date: 04/19/19 Primary care physician: Dannielle Patton MD Discharge provider: Lee Minaya Summary Hospital Course Discharge Diagnosis: Gallstone pancreatitis Acute cholecystitis Nonalcoholic fatty liver Diabetes type 2 GERD Hospital Course: 38-year-old man was admitted to the hospital for gallstone pancreatitis he was managed with bowel rest and IV fluids. By hospital day 3 he was generally feeling well with resolution of his epigastric pain and the majority of the tenderness. He was taken to the operating room for laparoscopic cholecystectomy with intraoperative cholangiogram. The cholangiogram did not demonstrate any retained gallstones within his biliary tree. During the course of his surgery he underwent core needle biopsy of his liver to assist with the diagnosis of his presumed NAFL. Postoperatively he did well and is able to discharge postop day 1. Drain left in place due to difficult gallbladder dissection, as well as tracking of 1 of the biopsy needles in the vicinity of the colon without evidence of injury -see operative note for further details. Status at Discharge Cognitive/behavioral status at discharge: oriented Functional status at discharge: independent ambulation Overall status at discharge: patient is progressing back to baseline Time Spent with Patient Time spent: Less than 30 minutes Exam Vital Signs (past 8 hours): - 04/19/19 03:12 Temperature 98.2 F Pulse Rate 62 Respiratory Rate 15 Blood Pressure 103/56 L Pulse Oximetry 98 Oxygen Delivery Method Nasal Cannula Oxygen Flow Rate 4 Narrative Exam Narrative: Well-appearing man in no acute distress Minimally tender abdomen Drain with light serosanguineous drainage All wounds clean dry and intact Ambulating independently in hallways Objective Labs Result Diagrams: 04/19/19 05:58 04/19/19 05:58 Labs: Laboratory Results - last 24 hr 04/19/19 04/19/19 05:58 05:58 WBC 7.6 RBC 4.29 L Hgb 13.4 L Hct 37.6 L MCV 87.6 MCH 31.2 MCHC 35.6 RDW 12.5 Plt Count 229 Neut % (Auto) 79.0 H Lymph % (Auto) 11.3 L [place] % (Auto) 9.6 Eos % (Auto) 0.0 L Baso % (Auto) 0.1 Neut # (Auto) 6000 Lymph # (Auto) 900 L [place] # (Auto) 700 Eos # (Auto) 0 Baso # (Auto) 0 Sodium 138 Potassium 4.1 Chloride 100 Carbon Dioxide 32 BUN 9 Creatinine 0.70 Estimated GFR > 60.0 BUN/Creatinine Ratio 12.9 Glucose 152 H Calcium 9.0 Magnesium 1.8 Discharge Plan Discharge Plan Patient Disposition: Home Discharge Med Rec/Prescriptions Prescriptions: New oxycodone 5 mg tablet See Rx Instructions .ROUTE .COMPLEX PRN (Reason: pain) Qty: 14 RF: 0 Continued acyclovir 200 mg Capsule 200 mg PO DIRECTED PRN (Reason: breakouts) RF: 0 lysine [L-Lysine] 500 mg Tablet 2 tab PO PRN PRN (Reason: breakaout) RF: 0 cholecalciferol (vitamin D3) [Vitamin D3] 1,000 unit Capsule 1,000 unit PO DAILY RF: 0 Complete Multi [id number] Tablet 1 tab PO DAILY RF: 0 esomeprazole magnesium 20 mg Tablet,Delayed Release (Dr/Ec) 20 mg PO DAILY RF: 0 Berberine 1 dose PO DIRECTED PRN (Reason: breakout) RF: 0 Follow up/Referrals: Dannielle Patton MD [Primary Care Provider] - Lee Minaya MD [Physician] - (Call Sunday for follow up at [facility] with Dr Ranjit Erazo next week for drain removal ) Provider Discharge Instructions Diet: Diet as Tolerated Diet comment: Go slow with advancing diet, no fatty foods for several days Activity: OK to shower Sunday04/20/18. No soaking in water for 2 weeks after surgery. Ok for normal activities. OK to walk. No lifting over 15lbs for 6 weeks - this is to prevent hernia formation. Cold/Heat Therapy: OK to put ice packs on abdomen if this helps pain Skin/Wound/Dressing Care Report to your healthcare provider any signs of infection, such as:: chills, fever and increased pain Other wound treatment: If your drain turns stool colored or green colored - will be an obvious change. Call the surgery clinic even if after hrs to be connected to a surgeon. Visit Report/Discharge Packet Instructions: DI for Cholecystectomy, DI for Laparoscopy Discharge Data Primary Care Provider: Dannielle Patton VTE Deep Vein Thrombosis/Pulmonary Embolism Present on Admission: No
[2019-04-19 10:10] VITALS: O2SAT 95
--- NOTE | 2019-04-19 14:51 | PC.NURSE ---
Day shift: Pt left unit at approx 1445 to private car in by BIENVENIDO Arias. Paperwork signed and all questions answered. Pt has scrips. Pt has all personal belongings. Did drain teaching and gave Pt medical tape if dressing needs any help.
--- NOTE | 2019-04-19 15:18 | CM.DPC ---
DCP: continued: Case discussed in Team Rounds: pt did go to surgery 04/18 for a surgical procedure/Lap Shannon and was ok'd for a d/c to home today. He left early afternoon for the home setting.
== END 2019-04-19 14:53 | disposition home or self-care (01) | DRG 418 ==
LOC: ED 16:17 → AC 16:48
PROVIDERS: Surgery; Admitting Provider Student in an Organized Health Care Education/Training Program; Emergency Provider Nurse Practitioner Family; PCP Student in an Organized Health Care Education/Training Program; Visit Provider Student in an Organized Health Care Education/Training Program
PROC: 0FT44ZZ Resection of Gallbladder, Percutaneous Endoscopic Approach (ICD-10-PCS; CPT 47562; principal; 2019-04-18 13:30)
DX: K85.10 Biliary acute pancreatitis without necrosis or infection (principal); K80.00 Calculus of gallbladder with acute cholecystitis without obstruction; K91.72 Accidental puncture and laceration of a digestive system organ or structure during other procedure; K75.81 Nonalcoholic steatohepatitis (NASH); K21.9 Gastro-esophageal reflux disease without esophagitis; E11.9 Type 2 diabetes mellitus without complications; R00.1 Bradycardia, unspecified; Z79.84 Long term (current) use of oral hypoglycemic drugs
CPT/HCPCS: 36415; 36591; 47001; 47563; 71045; 74300; 76705; 80048; 80053; 80076; 82150; 82550; 82962; 83690; 83735; 83880; 84145; 84484; 85025; 85610; 85730; 93005; 94760; 94762; 96374; 96375; 96376; 99222; 99283; 99285; C9113; J1100; J1170; J1650; J1885; J2250; J2270; J2405; J2704; J3010

== ENCOUNTER → 2019-05-19 13:43 | Outpatient (CLI) | payer OTHER, SELFPAY ==
[2019-04-16 17:55] VITALS: BMI 31.5
--- NOTE | 2019-05-19 | DI.US.S_ITS ---
PROCEDURE: US PERIPH VENOUS UP EXTREM RT INDICATIONS: foreign body right fore-arm TECHNIQUE: Real-time imaging, as well as color and pulse Doppler interrogation, was performed of the right upper extremity superficial veins distal to the antecubital fossa, targeting the palpable area of concern. COMPARISON: None. FINDINGS: Distal to the antecubital fossa and involving a branch of the superficial basilic vein, there is an occlusive thrombus within the segment correlating with palpable area of concern. This segment measures approximately 5 cm in length. There is suggestion of a tubular structure within this occluded segment demonstrating a somewhat uniform diameter. No stranding of fluid collections or subcutaneous soft tissue edema within the proximal right forearm. IMPRESSION: Superficial thrombus within a segment of a branch of the basilic vein measuring approximately 5 cm in length noted a short distance distal to the antecubital fossa, and correlating with the palpable area of concern. There is suggestion of a tubular structure demonstrating a uniform diameter within this segment of occluded vein. This may represent the foreign body per patient report. Consider radiographic evaluation of this area to identify a possible radiopaque foreign body. Dictated by: Cory Narvaez M.D. on 05/19/2019 14:55 Approved by: Cory Narvaez M.D. on 05/19/2019 at 15:02
== END ==
PROVIDERS: PCP Student in an Organized Health Care Education/Training Program; Visit Provider Student in an Organized Health Care Education/Training Program
DX: I82.611 Acute embolism and thrombosis of superficial veins of right upper extremity (principal); M79.5 Residual foreign body in soft tissue
CPT/HCPCS: 93971

== ENCOUNTER 2019-06-04 12:22 | Day surgery (SDC) | payer OTHER, SELFPAY ==
[2019-04-16 17:55] VITALS: BMI 31.5
[2019-06-04] VITALS (8 sets, daily range): BP systolic 115–124; BP diastolic 69–85; PULSE 60–74; RESP 10–16; TEMP 35.9–36.4; O2SAT 95–98; BMI 30.1
[2019-06-04] MEDS: LACTATED RINGERS 1,000 ML 42 ML IV (13:11)
--- NOTE | 2019-06-04 14:24 | PM.PREOP ---
Pre-operative Note Interval Note History & Physical reviewed/Exam performed by Physician: Yes Changes to H&P: No
[2019-06-04] MEDS: CEFAZOLIN 2 GM/100 ML FROZ.PIGGY IV (14:48)
--- NOTE | 2019-06-04 15:07 | SUR.OPER ---
Supine on padded OR bed, head on pillow, arms secured on padded arm boards at <90 degrees abduction, legs uncrossed, safety belt at thigh, tape over blanket over lower legs.
[2019-06-04] MEDS: BUPIVACAINE 0.25% W/ EPI 30 ML VIAL INJ (15:47)
--- NOTE | 2019-06-04 16:00 | PATH_ITS ---
[facility] Accession Number: [id number] . 01 Material submitted: . arm - SUPERFICIAL BASILIC VEIN RIGHT ARM . 02 Diagnosis: Superficial Basilic Vein, Right Arm, Excision: Segment of vein with organized thrombus and neovascularization. No foreign material/venous catheter grossly identified. No evidence of neoplasm. MRV 06/09/2019 1026 Local . 02 Electronically signed: . Richard Romero MD, PhD, Pathologist NPI- [id number] . 01 Gross description: . Specimen is received in a formalin-filled container, labeled superficial basilic vein right arm, and consists of a 5.4 x 0.4 cm, pink-rosario, cylindrical soft tissue consistent with vasculature. Sectioning reveals grossly unremarkable cuts surfaces with a probe patent lumen. The lumen diameter ranges from 0.1 cm up to 0.2 cm. Iron Worker Foreman sections are submitted within A1. ([id number]) /MRV 06/05/2019 0959 Local . 02 Pathologist provided ICD-10: S40.851A, I82.711 . 02 CPT . 851565 Performed at: 01 [facility] [address] [place] [address], [place], [place] [id number] MD Endy Bui MD Phone: [phone] Performed at: [facility] [address] [place], [place] [id number] MD Brenda Ahn MD Phone: [phone]
--- NOTE | 2019-06-04 16:08 | PM.OP.1 ---
Operative Date/Time/Diagnoses Date of procedure: 06/04/19 Time of procedure: 16:08 Pre-op diagnosis: retained foreign body and right arm thrombophlebitis of basilic vein branch Post-op diagnosis: other (thrombophlebitis of right arm basilic vein branch) Procedure & Clinicians Procedure: Ligation and excision of right forearm superficial thrombophlebitis of basilic vein branch; suggested CPT 50848 Same procedure as scheduled: Yes Indications: This is a 38-year-old man who had an emergency laparoscopic cholecystectomy a few months ago, and has since then had a pain in his right forearm where his IV site had been. He had an ultrasound done which indicated that there was a retained piece of IV tubing in his arm in the area of his pain. He clearly had thickened, tender area in the arm consistent with a thrombosed vessel, and as indicated on the ultrasound of a likely retained foreign body within the clot. After discussion of the risks and benefits of going ahead and removing this, the patient was avid to have it removed because it is causing him so much pain and discomfort. I told him that we would remove the foreign body, and the associated vessel as it is clearly clotted off, and would not heal well after opening it and removing the tube. Surgeon: Brenda Merlos Click Yes if Unassisted: Yes Anesthesia Type: General (LMA) Operative Notes Findings: Thrombosed vessel without retained foreign body Closure Type: primary Specimen(s): other (basilic vein branch) Estimated Blood Loss (mL): 1 Blood products transfused: none Procedure in detail: The patient was brought into the operating room placed supine on the operating table with right arm extended onto a hand table. Sequential compression devices were placed on both legs, appropriate perioperative antibiotics were given, and general anesthesia was induced by the anesthesiologist and an LMA was placed without incident. The right arm was prepped and draped in sterile fashion, exposing the area of the arm which had been marked in the preop area. Surgical time-out was conducted. Local anesthetic was injected into the marked area overlying the symptomatic vessel in the right arm using 5 cc of 0.25% Marcaine with epi. A 5 cm longitudinal incision was then made in the skin at this site. Dissection was carried down through the dermis into the subcutaneous fat of the right forearm. A prominent subcutaneous vessel came into view, with a firm distended portion of the vessel in the area of the patient's pain. The vessel was dissected circumferentially away from the surrounding structures and soft tissue. Small right angle clamps were used to control proximal and distal, and a longitudinal incision was made on the vessel in the area of abnormality. Old blood and clot was suctioned out once the vessel was opened, but no tubular structure was seen. Dissection was then carried proximal on the arm along the marked area which was identified on the patient's ultrasound and the area of the patient's symptoms. This was done by injecting local anesthetic into the marked area, and extending the skin incision proximal for about another 10 cm. As I continued up the arm for about another 10 cm, I found further clot and thickening of the vessel. As I continued to dissect proximally and distally, no tubular structure was found within the vessel. I reached an area the vessel which appeared normal both proximally and distally, and was not involved with clot or thickening. I felt at this point that I had reached the proximal and distal ends of the symptomatic vessel, and no tubular structure have been found. We brought in the C-arm and examined the arm for the full length of the area of concern, and no radiopaque structure was seen within that vessel or any other local vessel. At this point I felt that I could remove the symptomatic vessel tied off, and closed the arm without concerned that I had left a foreign body behind. I had clamps proximal and distal to the opening in the vessel. Both clamps were opened to allow back bleeding, which was normal appearing venous blood. Three 0 silk was then used to ligate the proximal and distal ends of the vessel, and the interposing length a vessel which was about 10 cm was then divided using tenotomy scissors and passed off the table for pathology. The forearm wound which was ultimately about 15 cm was then closed in layers using 3 0 Vicryl in the deep subcutaneous tissue and dermis, and 4 Monocryl in a subcuticular fashion to close the skin. Local anesthetic was injected into the skin and associated subcutaneous fat prior to closing the wound. After the wound was closed Dermabond was used to seal the skin edges. At the conclusion of the procedure the patient was wakened from anesthesia and extubated. Needle sponge and instrument counts were correct x2 at the end of the case. He was transferred to the postanesthesia care unit in stable condition with planned discharge home. Complications: none Post-operative Condition: stable Disposition: PACU
== END 2019-06-04 16:52 | disposition home or self-care (01) ==
PROVIDERS: PCP Student in an Organized Health Care Education/Training Program; Visit Provider Surgery
PROC: (CPT 10121; principal; 2019-06-04 14:15)
DX: S40.851A Superficial foreign body of right upper arm, initial encounter (principal); I80.8 Phlebitis and thrombophlebitis of other sites; G47.33 Obstructive sleep apnea (adult) (pediatric); E11.9 Type 2 diabetes mellitus without complications; Z79.84 Long term (current) use of oral hypoglycemic drugs
CPT/HCPCS: 10121; 37799; J0690; J1100; J2250; J2405; J2704; J3010

== ENCOUNTER 2019-09-05 12:58 | Emergency (ER) | payer OTHER, SELFPAY ==
[2019-06-25 09:04] VITALS: BMI 31.5
[2019-09-05 13:00] VITALS: BP 157/93; PULSE 76; RESP 18; TEMP 36.8; O2SAT 97; BMI 30.8
--- NOTE | 2019-09-05 13:10 | DI.RAD.S_ITS ---
PROCEDURE: XR FINGER RT MIN 2V INDICATIONS: Trauma, smashed 4th finger TECHNIQUE: AP hand, 2 views of the fourth finger(s) acquired. COMPARISON: None. FINDINGS: Bones: Comminuted and nondisplaced fracture involving fourth distal phalangeal tuft is seen. No suspicious bony lesions. Soft tissues: No suspicious soft tissue calcifications. Soft tissue swelling over fourth distal phalangeal tuft is seen. IMPRESSION: Nondisplaced fourth distal phalangeal tuft fracture with surrounding soft tissue swelling. Dictated by: Enmanuel Streeter M.D. on 09/05/2019 at 13:40 Approved by: Enmanuel Streeter M.D. on 09/05/2019 at 13:42
--- NOTE | 2019-09-05 13:46 | ED.UPPEXIN ---
HPI - Extremity Injury (Upper) <KAREN Baron - Last Filed: 09/05/19 21:55> General Chief Complaint: Extremity Injury, Upper Stated Complaint: smashed rt ring finger Time Seen by Provider: 09/05/19 13:18 Source: patient Mode of arrival: Ambulatory History of Present Illness HPI narrative: 39yo male presents emergency department for right 4th finger pain and swelling. He states he was moving heavy equipment that weighed approximately 60 lb when it slipped and able to on the equipment fell on to his finger. He reports increasing pain over the past few hours. He states the pain is a 6/10 dull aching that is worse with palpation. He denies any previous history to the injury, denies any wounds or lacerations, head trauma, nausea, vomiting, diarrhea, syncope, or other concerns. Related Data Home Medications Medication Instructions Recorded Confirmed Complete Multi 1 tab PO DAILY 09/27/18 06/25/19 acyclovir 200 mg PO DIRECTED PRN 09/27/18 06/25/19 cholecalciferol (vitamin D3) 1,000 unit PO DAILY 09/27/18 06/25/19 [Vitamin D3] lysine [L-Lysine] 2 tab PO PRN PRN 09/27/18 06/25/19 Berberine 1 dose PO DIRECTED PRN 04/07/19 06/25/19 esomeprazole magnesium 20 mg PO DAILY 04/07/19 06/25/19 metformin 850 mg PO DAILY 05/29/19 06/25/19 Previous Rx's Medication Instructions Recorded oxycodone See Rx Instructions .ROUTE 04/19/19 .COMPLEX PRN #14 tab docusate sodium 100 mg PO BID #20 cap 06/04/19 oxycodone 5 mg PO Q4H PRN #20 tab MDD 6 06/04/19 Allergies Allergy/AdvReac Type Severity Reaction Status Date / Time No Known Drug Allergies Allergy Verified 06/25/19 09:39 Review of Systems <KAREN Baron - Last Filed: 09/05/19 21:55> Review of Systems Narrative: REVIEW OF SYSTEMS: GENERAL: Denies fever or chills. HENT: No head trauma. EYES: No vision changes. RESPIRATORY: No shortness of breath. GASTROINTESTINAL: No nausea, vomiting, diarrhea, or constipation. MUSCULOSKELETAL: Complains of right 4th finger pain and swelling, see HPI. INTEGUMENTARY: No lesions. NEURO: No numbness, tingling. Patient History <KAREN Baron - Last Filed: 09/05/19 21:55> Medical History Cholecystitis without cholelithiasis (Acute) Diverticulitis (Acute) Gallstone pancreatitis (Acute ~03/2019) Hiatal hernia (Acute) HTN (hypertension) (Acute) Hydrocele (Acute) Liver fibrosis (Acute) NIDHI (obstructive sleep apnea) (Acute) Vertigo (Acute) Surgical History H/O hernia repair (Acute) Status post cholecystectomy (Acute) Social History household members: significant other Smoking Status: Never smoker alcohol intake: current Smoking Status: Never smoker alcohol intake frequency: a few times a month Substance Use Type: does not use Exam <KAREN Baron - Last Filed: 09/05/19 21:55> Initial Vital Signs Initial Vital Signs: Vital Signs Temperature 98.2 F 09/05/19 13:00 Pulse Rate 76 09/05/19 13:00 Respiratory Rate 18 09/05/19 13:00 Blood Pressure 157/93 H 09/05/19 13:00 Pulse Oximetry 97 09/05/19 13:00 PHYSICAL EXAMINATION: GENERAL: Alert and cooperative. Answers questions promptly and appropriately. Vital signs noted. HENT: Normocephalic, atraumatic. EYES: Symmetrical, sclera white, no periorbital swelling. CARDIOVASCULAR: Regular rate. RESPIRATORY: Normal respiratory rate, trachea midline, airway patent. No stridor, nasal flaring or accessory muscle use. L MUSCULOSKELETAL: Swelling and ecchymosis noted to distal aspect of right 4th finger above the dip joint, no involvement in dip joint, full range of motion of dip joint. Approximately 50% of the nail exhibited a subungual hematoma. After administration of lidocaine, nail trephination was performed, approximately 3 mL of serosanguineous and bloody fluid expressed, patient reported relief of pain. Area was better with gauze and splinted with a metal foam splint. EXTREMITIES: CMS intact. Radial pulses 2+ and equal bilaterally. SKIN: Warm, dry, soft, appropriate color for ethnicity. No lesions, rashes, or wounds. NEURO: Sensation to distal aspect of finger intact, Keppra intact. PSYCH: Appropriate affect and mood. <Myrtle Vasquez DO - Last Filed: 09/07/19 11:22> Initial Vital Signs Initial Vital Signs: Vital Signs Temperature 98.2 F 09/05/19 13:00 Pulse Rate 76 09/05/19 13:00 Respiratory Rate 18 09/05/19 13:00 Blood Pressure 157/93 H 09/05/19 13:00 Pulse Oximetry 97 09/05/19 13:00 Procedures <KAREN Baron - Last Filed: 09/05/19 21:55> Nail Trephination Time out: Yes Location (finger): right and ring Sterile prep: chlorhexidine Method of drainage: needle Procedure successful: Yes Patient tolerated procedure: well Nerve Block Nerve Block 1: Time out performed: Yes Local Anesthetic: lidocaine 1% and with bicarb Amount of anesthesia used (mL): 8 Side: right Nerve Blocks: digital Procedure Successful: Yes Patient Tolerated Procedure: Well Complications: none Orthopedic Splinting/Casting Injury #1: Side: right Upper Extremity Injury Location: hand Upper Extremity Immobilizer: aluminum form splint Post splinting neuro exam: intact Post splinting vascular exam: intact Placed by: Nursing Course <KAREN Baron - Last Filed: 09/05/19 21:55> Course Course Narrative: Patient reported a significant decrease in pain after digital block. Wound was dressed with gauze and a foam splint. Orders Ordered: Discontinued Medications Lidocaine/Sodium Bicarbonate (Buffered Lidocaine 10 Ml Syr) 10 ml INJ NOW ONE Stop: 09/05/19 13:55 Last Admin: 09/05/19 14:11 Dose: 10 ml Documented by: TOREY Rodrigez Consultation #1: Patient staffed Dr. Vasquez. Vital Signs Vital signs: Vital Signs - 8 hr 09/05/19 14:36 Pulse Rate 76 Respiratory Rate 16 Blood Pressure [Left Arm] 150/88 H Pulse Oximetry 97 <Myrtle Vasquez DO - Last Filed: 09/07/19 11:22> Orders Ordered: Discontinued Medications Lidocaine/Sodium Bicarbonate (Buffered Lidocaine 10 Ml Syr) 10 ml INJ NOW ONE Stop: 09/05/19 13:55 Last Admin: 09/05/19 14:11 Dose: 10 ml Documented by: TOREY Vital Signs Vital signs: Vital Signs - 8 hr 09/05/19 14:36 Pulse Rate 76 Respiratory Rate 16 Blood Pressure [Left Arm] 150/88 H Pulse Oximetry 97 [facility] - Extremity Injury (Upper) <KAREN Baron - Last Filed: 09/05/19 21:55> Medical Records Attestation: I reviewed the patient's medical records. Lab Data Attestation: I reviewed the patient's lab results. Imaging Data Extremity x-ray #1: Radiologist's Impression: [address] [address] XRay Report Signed Patient: Perry Hernadez JMR#: [id number] : 1980Acct:[id number] Age/Sex: 39 / MDate of Service: 09/05/19 Loc: ED Accession Number: [id number] Procedure: XR finger RT min 2V Ordering Provider: Myrtle Vasquez D.O. PROCEDURE: XR FINGER RT MIN 2V INDICATIONS: Trauma, smashed 4th finger TECHNIQUE: AP hand, 2 views of the fourth finger(s) acquired. COMPARISON: None. FINDINGS: Bones: Comminuted and nondisplaced fracture involving fourth distal phalangeal tuft is seen. No suspicious bony lesions. Soft tissues: No suspicious soft tissue calcifications. Soft tissue swelling over fourth distal phalangeal tuft is seen. IMPRESSION: Nondisplaced fourth distal phalangeal tuft fracture with surrounding soft tissue swelling. Dictated by: Enmanuel Streeter M.D. on 09/05/2019 at 13:40 Approved by: Enmanuel Streeter M.D. on 09/05/2019 at 13:42 [facility] Narrative Medical decision making narrative: History and examination reveal a closed distal tuft fracture with a subungual hematoma requiring nail trephination. Patient tolerated procedure well, procedure details explained above. Patient was referred to Ortho for follow-up due to multiple fractures and his distal phalanx. Patient was encouraged to keep the area dry and clean and we splint in place. He was encouraged to take Tylenol and ibuprofen for pain. Return precautions given for new or worsening symptoms such as infection. Patient agrees when of care verbalized understanding. Discharge Plan Departure Patient Disposition: Home Clinical Impression: Closed fracture of tuft of distal phalanx of finger Discharge Date/Time: 09/05/19 14:39 Instructions: DI for Finger Fracture Activity Restrictions/Additional Instructions: Thank you for entrusting me with your care today. As discussed, you have a fracture on the end of your finger. Please leave the splint in place. I have referred you to an orthopedic, please call the office and schedule an appointment. Watch for signs of infection such as increasing redness, purulent drainage, worsening pain, redness--if these symptoms occur please be seen immediately. Return emergency department for new or worsening symptoms such as chest pain, shortness of breath, high fevers, or other concerns. Prescriptions: No Action acyclovir 200 mg Capsule 200 mg PO DIRECTED PRN (Reason: breakouts) RF: 0 lysine [L-Lysine] 500 mg Tablet 2 tab PO PRN PRN (Reason: breakaout) RF: 0 cholecalciferol (vitamin D3) [Vitamin D3] 1,000 unit Capsule 1,000 unit PO DAILY RF: 0 Complete Multi [id number] Tablet 1 tab PO DAILY RF: 0 oxycodone 5 mg tablet See Rx Instructions .ROUTE .COMPLEX PRN (Reason: pain) Qty: 14 RF: 0 esomeprazole magnesium 20 mg Tablet,Delayed Release (Dr/Ec) 20 mg PO DAILY RF: 0 Berberine 1 dose PO DIRECTED PRN (Reason: breakout) RF: 0 metformin 850 mg Tablet 850 mg PO DAILY RF: 0 oxycodone 5 mg tablet 5 mg PO Q4H MDD 6 PRN (Reason: pain) Qty: 20 RF: 0 docusate sodium 100 mg capsule 100 mg PO BID Qty: 20 RF: 0 Referrals: Dannielle Patton MD [Primary Care Provider] - Courtney Jackson PA-C [Advanced Instrumentation Controls Engineer] - Juan Benton PA-C [Physician Manager Marketing Communications] - (Significant tuft fracture. )
[2019-09-05] MEDS: LIDO 1%/SOD BICARB 8.4% (10ML) 10 ML SYRINGE INJ (14:11)
[2019-09-05 14:36] VITALS: BP 150/88; PULSE 76; RESP 16; O2SAT 97
--- NOTE | 2019-09-05 14:38 | PC.NURSE ---
Bandage and splint applied per Sheyla. CSM education provided. Pt verbalizes understanding.
== END 2019-09-05 14:39 | disposition home or self-care (01) ==
PROVIDERS: Emergency Provider Nurse Practitioner; PCP Student in an Organized Health Care Education/Training Program
DX: S62.634A Displaced fracture of distal phalanx of right ring finger, initial encounter for closed fracture (principal); W22.8XXA Striking against or struck by other objects, initial encounter; Y99.0 Civilian activity done for income or pay
CPT/HCPCS: 11740; 64450; 73140; 99283

== ENCOUNTER 2020-02-19 03:33 | Emergency (ER) | payer OTHER, SELFPAY ==
[2019-06-25 09:04] VITALS: BMI 31.5
--- NOTE | 2020-02-19 03:35 | ED_ITS ---
HPI - Abdominal Pain General Chief Complaint: Abdominal Pain Stated Complaint: Stomach pain/diarrhea/fever yesterday Time Seen by Provider: 02/19/20 03:35 Source: patient Mode of arrival: Ambulatory Limitations: no limitations History of Present Illness HPI narrative: 39-year-old male nonsmoker with history gallbladder disease, pancreatitis and diverticulitis presents with a chief complaint gradually worsening symptoms over the course of the week including nausea, vomiting, abdominal pain and frequent loose stools. He states his pain comes and goes much of the time but otherwise admits that his pain seems to be worse when he moves. He has had a poor appetite. He denies any measurable fever. He has had no dysuria, frequency or urgency. He denies recent travel, use of antibiotics. He denies exposure to persons known to have COVID-19. MD complaint: abdominal pain Onset (ago): day(s) Pain Consistency: intermittent Location: RLQ Severity: moderate Quality: cramping and aching Radiation: none Migration to: no migration Relieving factors: rest Exacerbating factors: movement Associated symptoms: nausea, vomiting and diarrhea Related Data Home Medications Medication Instructions Recorded Confirmed Complete Multi 1 tab PO DAILY 09/27/18 06/25/19 acyclovir 200 mg PO DIRECTED PRN 09/27/18 06/25/19 cholecalciferol (vitamin D3) 1,000 unit PO DAILY 09/27/18 06/25/19 [Vitamin D3] lysine [L-Lysine] 2 tab PO PRN PRN 09/27/18 06/25/19 Berberine 1 dose PO DIRECTED PRN 04/07/19 06/25/19 esomeprazole magnesium 20 mg PO DAILY 04/07/19 06/25/19 metformin 850 mg PO DAILY 05/29/19 06/25/19 Previous Rx's Medication Instructions Recorded oxycodone See Rx Instructions .ROUTE 04/19/19 .COMPLEX PRN #14 tab docusate sodium 100 mg PO BID #20 cap 06/04/19 oxycodone 5 mg PO Q4H PRN #20 tab MDD 6 06/04/19 ciprofloxacin HCl 500 mg PO BID #20 tab 02/19/20 hydrocodone-acetaminophen 1 tab PO Q4-6H PRN #10 tab 02/19/20 metronidazole [Flagyl] 500 mg PO Q8H #30 tab 02/19/20 ondansetron 4 mg PO Q8H PRN #10 tab 02/19/20 Allergies Allergy/AdvReac Type Severity Reaction Status Date / Time No Known Drug Allergies Allergy Verified 06/25/19 09:39 Review of Systems Constitutional Constitutional: Denies chills, Denies fatigue, Denies fever(s), Denies frequent falls, Denies lethargy and Denies weakness Eyes Eyes: Denies change in vision, Denies eye discharge, Denies irritation and Denies loss of vision ENT Ears, Nose, Mouth, and Throat: Denies change in voice, Denies dizziness, Denies neck pain, Denies sore throat and Denies throat swelling Cardiovascular Cardiovascular: Denies chest pain, Denies irregular heart rhythm, Denies lightheadedness, Denies palpitations, Denies dyspnea, Denies dyspnea on exertion and Denies orthopnea Respiratory Respiratory: Denies cough, Denies dyspnea, Denies dyspnea on exertion and Denies wheezing Gastrointestinal Gastrointestinal: Reports abdominal pain, Denies change in bowel habits, Reports diarrhea, Reports nausea and Reports vomiting Musculoskeletal Musculoskeletal: Denies neck pain and Denies numbness Integumentary/Breasts Skin/Breast: Denies pruritus, Denies erythema, Denies rash and Denies wounds Neurologic Neurologic: Denies behavioral changes, Denies confusion, Denies dizziness, Denies frequent falls, Denies loss of vision, Denies numbness and Denies weakness Psychiatric Psychiatric: Denies anxiety, Denies behavioral changes, Denies confusion, Denies depression, Denies homicidal ideation and Denies suicidal ideation Endocrine Endocrine: Denies fatigue, Denies flushing and Denies palpitations Hematologic/Lymphatic Hematologic/Lymphatic: Denies easy bruising Allergic/Immunologic Allergic/Immunologic: Denies urticaria, Denies throat swelling and Denies wheezing Patient History Medical History Cholecystitis without cholelithiasis (Acute) Diverticulitis (Acute) Gallstone pancreatitis (Acute ~03/2019) Hiatal hernia (Acute) HTN (hypertension) (Acute) Hydrocele (Acute) Liver fibrosis (Acute) NIDHI (obstructive sleep apnea) (Acute) Vertigo (Acute) Surgical History H/O hernia repair (Acute) Status post cholecystectomy (Acute) Social History household members: significant other Smoking Status: Never smoker alcohol intake: current Smoking Status: Never smoker alcohol intake frequency: a few times a month Substance Use Type: does not use Exam Narrative Exam Narrative: GENERAL: [38] year old patient appears stated age. Well- nourished, well-developed patient, in mild distress. HEAD: Atraumatic. Normocephalic. EYES: Pupils equal round and reactive. Extraocular motions intact. No scleral icterus. No injection or drainage. ENT: Nose without bleeding, purulent drainage. Throat without erythema, tonsillar hypertrophy or exudate. Airway patent. NECK: Trachea midline. Non tender CARDIOVASCULAR: Regular rate and rhythm without murmurs, gallops, or rubs. RESPIRATORY: Clear to auscultation. Breath sounds equal bilaterally. No wheezes, rales, or rhonchi. GASTROINTESTINAL: Abdomen soft, tender in the right lower quadrant, nondistended. EXTREMITIES: No edema or joint tenderness. BACK: Nontender without deformity or crepitance. No flank tenderness. NEURO: AOx3. SKIN: No rash or erythema of visible areas Initial Vital Signs Initial Vital Signs: Vital Signs Pulse Rate 93 H 02/19/20 03:39 Pulse Oximetry 98 02/19/20 03:39 Course Orders Ordered: ED Orders 02/19/20 03:40 Complete Blood Count AUTO DIFF Stat Comprehensive Metabolic Panel Stat Lipase Stat 02/19/20 03:58 CT abdomen pelvis w con Stat Piperacillin/Tazobactam/Dextrose (Zosyn) 3.375 gm in 50 mls @ 100 mls/hr IV NOW ONE Stop: 02/19/20 05:29 Discontinued Medications Hydrocodone Bitart/Acetaminophen (Vicodin 5/325 Prepack) 1 bottle MISC SEEINSTR ONE Stop: 02/19/20 05:07 Last Admin: 02/19/20 05:10 Dose: 1 bottle Documented by: MMCFARL Sodium Chloride (Normal Saline 0.9%) 1,000 mls @ 1,000 mls/hr IV BOLUS ONE Stop: 02/19/20 04:42 Last Admin: 02/19/20 03:59 Dose: 1,000 mls/hr Documented by: MMCFARL Levofloxacin (Levaquin) 500 mg PO NOW ONE Stop: 02/19/20 05:07 Last Admin: 02/19/20 05:10 Dose: 500 mg Documented by: BA Ondansetron HCl (Zofran) 4 mg IV NOW ONE Stop: 02/19/20 03:49 Last Admin: 02/19/20 03:59 Dose: 4 mg Documented by: BA Ondansetron HCl (Zofran Odt Prepack) 1 bottle MISC SEEINSTR ONE Stop: 02/19/20 05:07 Last Admin: 02/19/20 05:10 Dose: 1 bottle Documented by: BA Pantoprazole Sodium (Protonix) 40 mg IV NOW ONE Stop: 02/19/20 03:49 Last Admin: 02/19/20 03:59 Dose: 40 mg Documented by: BA Vital Signs Vital signs: Vital Signs - 8 hr 02/19/20 03:39 02/19/20 03:40 02/19/20 04:00 Temperature Pulse Rate 93 H 88 83 Respiratory Rate Blood Pressure 149/84 H 125/82 Pulse Oximetry 98 98 96 02/19/20 04:16 02/19/20 04:48 Temperature 97.8 F Pulse Rate 84 Respiratory Rate 16 Blood Pressure 149/84 H 125/82 Pulse Oximetry 98 MDM - Abdominal Pain Lab Data Result diagrams: 02/19/20 03:40 02/19/20 03:40 Labs: Lab Results 02/19/20 02/19/20 Range/Units 03:40 03:40 WBC 10.6 (4.5-11.0) X10^3/uL RBC 5.02 (4.5-5.9) X10^6/uL Hgb 15.6 (13.5-17.5) g/dL Hct 44.8 (41-53) % MCV 89.1 (80-100) fL MCH 31.0 (26-34) PG MCHC 34.8 (30-36) % RDW 12.6 (11.6-14.8) % Plt Count 288 (150-400) X10^3/uL Neut % (Auto) 73.9 (50-75) % Lymph % (Auto) 14.7 L (25-40) % [place] % (Auto) 10.5 (3-14) % Eos % (Auto) 0.6 L (2-4) % Baso % (Auto) 0.3 (0-2) % Neut # (Auto) 7800 H (6918-7718) /uL Lymph # (Auto) 1600 (4781-4741) /uL [place] # (Auto) 1100 H (0-900) /uL Eos # (Auto) 100 (0-450) /uL Baso # (Auto) 0 (0-100) /uL Sodium 136 L (137-145) mmol/L Potassium 4.0 (3.4-5.1) mmol/L Chloride 100 (98-107) mmol/L Carbon Dioxide 28 (22-32) mmol/L BUN 14 (9-20) mg/dL Creatinine 1.08 (0.66-1.25) mg/dL Estimated GFR > 60.0 (>60) mL/min BUN/Creatinine Ratio 13.0 (6-22) Glucose 162 H (70-100) mg/dL Calcium 9.6 (8.4-10.2) mg/dL Total Bilirubin 0.9 (0.2-1.3) mg/dL AST 29 (17-59) IU/L ALT 53 H (<50) IU/L Alkaline Phosphatase 74 (38-126) U/L Total Protein 7.8 (6.3-8.2) g/dL Albumin 4.5 (3.5-5.0) g/dL Globulin 3.3 (1.7-4.1) g/dL Albumin/Globulin Ratio 1.4 (1.0-2.8) Lipase 46 (23-300) U/L Imaging Data CT scan - abdomen/pelvis: Radiologist's Impression: No perf, obstruction, abscess, or appy. Colitis noted. MDM Narrative Medical decision making narrative: Multiple etiologies for patient's symptoms considered including: [appy vs. kidney stone vs. SBO vs. diverticulitis vs. other] Patient's symptoms improved or duration of stay with above-stated therapies. Findings and discharge diagnosis discussed with patient/family followed by verbalization of understanding Return precautions discussed with patient/family whom verbalize understanding. Discharge Plan Departure Patient Disposition: Home Clinical Impression: Colitis Instructions: DI for Colitis Activity Restrictions/Additional Instructions: *You have been diagnosed with [colitis] *What to do: *Take medications as directed *Follow up with your primary care provider in 2-3 days, call for an appointment. Let them know you were seen in the Emergency Department and that we ask that you be seen in follow up *Return to ER if you should have any new, worsening or concerning symptoms 1. Drink plenty of fluids with frequent small sips. 2. For the next 24 hours a clear liquid diet is advised. After that please employ a brat diet which would include bananas, rice, apples, toast. 3. Please take medications as directed. 4. Please follow-up with your doctor in the next 1-2 days. Call the office for an appointment. 5. Please return to the emergency Department for any worsening or persistent symptoms, such as increasing pain or fever. Prescriptions: New ciprofloxacin HCl 500 mg tablet 500 mg PO BID Qty: 20 RF: 0 metronidazole [Flagyl] 500 mg tablet 500 mg PO Q8H Qty: 30 RF: 0 hydrocodone-acetaminophen 5-325 mg tablet 1 tab PO Q4-6H PRN (Reason: pain) Qty: 10 RF: 0 ondansetron 4 mg tablet,disintegrating 4 mg PO Q8H PRN (Reason: nausea and vomiting) Qty: 10 RF: 0 No Action acyclovir 200 mg Capsule 200 mg PO DIRECTED PRN (Reason: breakouts) RF: 0 lysine [L-Lysine] 500 mg Tablet 2 tab PO PRN PRN (Reason: breakaout) RF: 0 cholecalciferol (vitamin D3) [Vitamin D3] 1,000 unit Capsule 1,000 unit PO DAILY RF: 0 Complete Multi [id number] Tablet 1 tab PO DAILY RF: 0 oxycodone 5 mg tablet See Rx Instructions .ROUTE .COMPLEX PRN (Reason: pain) Qty: 14 RF: 0 esomeprazole magnesium 20 mg Tablet,Delayed Release (Dr/Ec) 20 mg PO DAILY RF: 0 Berberine 1 dose PO DIRECTED PRN (Reason: breakout) RF: 0 metformin 850 mg Tablet 850 mg PO DAILY RF: 0 oxycodone 5 mg tablet 5 mg PO Q4H MDD 6 PRN (Reason: pain) Qty: 20 RF: 0 docusate sodium 100 mg capsule 100 mg PO BID Qty: 20 RF: 0 Referrals: Dannielle Patton MD [Primary Care Provider] -
[2020-02-19 03:39] VITALS: PULSE 93; O2SAT 98
[2020-02-19 03:40] VITALS: BP 149/84; PULSE 88; O2SAT 98
--- NOTE | 2020-02-19 03:58 | DI.CT.S_ITS ---
PROCEDURE: CT ABDOMEN PELVIS W CON INDICATIONS: severe Right lower quadrant pain TECHNIQUE: After the administration of intravenous contrast, 5 mm thick sections acquired from the diaphragm to the symphysis. 5 mm coronal and sagittal reformats were acquired. For radiation dose reduction, the following was used: automated exposure control, adjustment of mA and/or kV according to patient size. COMPARISON: [facility], CT, CT ABDOMEN PELVIS W CON, 11/29/2018, 1:32. FINDINGS: Image quality: Excellent. ABDOMEN: Lung bases: Lung bases are clear. Heart size is normal. Solid organs: Borderline hepatomegaly with diffuse steatosis. Left hepatic lobe hemangioma. Gallbladder has been removed . Biliary system is non dilated. Pancreas enhances normally. Spleen is normal in size and enhancement. No adrenal nodules. Kidneys demonstrate normal size and enhancement, without hydronephrosis. Peritoneum and bowel: There is diffuse colonic wall thickening with submucosal edema. There is mild fat stranding and inflammatory change surrounding most of the colon including the cecum. Engorged vasa recta in association with the ascending and transverse colon. The appendix is normal in appearance. Nodes and vessels: No retroperitoneal or mesenteric adenopathy by size criteria. Aorta and inferior vena cava are normal in size. Miscellaneous: No ventral hernias. PELVIS: Genitourinary: Bladder wall thickness is normal. Miscellaneous: No inguinal hernias or adenopathy. Bones: No suspicious bony lesions. No vertebral body compression fractures. IMPRESSION: 1. Diffuse colonic wall thickening suggestive of colitis. 2. Hepatic steatosis and left hepatic lobe hemangioma. 3. Final report is concordant with preliminary report provided by [facility]. Dictated by: Blake Ferrari M.D. on 02/19/2020 at 8:02 Approved by: Blake Ferrari M.D. on 02/19/2020 at 8:07
[2020-02-19] MEDS: ONDANSETRON 4 MG/2 ML INJ IV (03:59)
[2020-02-19] MEDS: SODIUM CHLORIDE 0.9% 1,000 ML 1000 ML IV (03:59)
[2020-02-19] MEDS: PANTOPRAZOLE 40 MG VIAL IV (03:59)
[2020-02-19 04:00] VITALS: BP 125/82; PULSE 83; O2SAT 96
[2020-02-19 04:07] LABS: Add Manual Diff / Slide Review NO; Basophils Absolute Auto 0 /uL (0-100); Basophils Percent Auto 0.3 % (0-2); Eosinophils Absolute Auto 100 /uL (0-450); Eosinophils Percent Auto 0.6 % (2-4); Hematocrit 44.8 % (41-53); Hemoglobin 15.6 g/dL (13.5-17.5); Lymphocytes Absolute Auto 1600 /uL (1100-4500); Lymphocytes Percent Auto 14.7 % (25-40); Mean Corpuscular HGB Conc 34.8 % (30-36); Mean Corpuscular Volume 89.1 fL (80-100); Monocytes Absolute Auto 1100 /uL (0-900); Monocytes Percent Auto 10.5 % (3-14); Neutrophils Absolute Auto 7800 /uL (1500-7000); Neutrophils Percent Auto 73.9 % (50-75); Platelet Count 288 X10^3/uL (150-400); Red Blood Cell Count 5.02 X10^6/uL (4.5-5.9); Red Cell Distribution Width 12.6 % (11.6-14.8); White Blood Cell Count 10.6 X10^3/uL (4.5-11.0)
[2020-02-19 04:10] LABS: Alanine Aminotransferase 53 IU/L (<50); Albumin 4.5 g/dL (3.5-5.0); Albumin Globulin Ratio 1.4 (1.0-2.8); Alkaline Phosphatase 74 U/L (38-126); Aspartate Aminotransferase 29 IU/L (17-59); Bilirubin Total 0.9 mg/dL (0.2-1.3); Blood Urea Nitrogen 14 mg/dL (9-20); Calcium 9.6 mg/dL (8.4-10.2); Carbon Dioxide 28 mmol/L (22-32); Chloride 100 mmol/L (98-107); Estimated Glomerular Filt Rate > 60.0 mL/min (>60); Globulin 3.3 g/dL (1.7-4.1); Glucose 162 mg/dL (70-100); HEMOLYSIS < 15 (0-50); Lipase 46 U/L (23-300); Sodium 136 mmol/L (137-145); Total Protein 7.8 g/dL (6.3-8.2)
[2020-02-19 04:16] VITALS: BP 149/84; PULSE 84; RESP 16; TEMP 36.6; O2SAT 98; BMI 30.1
[2020-02-19 04:48] VITALS: BP 125/82
[2020-02-19] MEDS: levoFLOXacin 250 MG TABLET 500 MG PO (05:10)
[2020-02-19] MEDS: ONDANSETRON 4 MG ODT PREPACK 1 BOTTLE MISC (05:10)
[2020-02-19] MEDS: HYDROCODONE/ACET 5/325 PREPACK 1 BOTTLE MISC (05:10)
== END 2020-02-19 05:13 | disposition home or self-care (01) ==
PROVIDERS: Emergency Provider Emergency Medicine; PCP Student in an Organized Health Care Education/Training Program
DX: K52.9 Noninfective gastroenteritis and colitis, unspecified (principal); R11.2 Nausea with vomiting, unspecified; R10.31 Right lower quadrant pain
CPT/HCPCS: 36415; 74177; 80053; 83690; 85025; 96361; 96374; 96375; 99284; C9113; J2405; Q9967

== ENCOUNTER 2020-10-04 13:58 | Emergency (ER) | payer OTHER, SELFPAY ==
[2019-06-25 09:04] VITALS: BMI 31.5
[2020-10-04 14:04] VITALS: BP 161/95; PULSE 90; RESP 20; TEMP 37.2; O2SAT 97
[2020-10-04 14:22] VITALS: BP 146/88; PULSE 88; RESP 20; O2SAT 100
--- NOTE | 2020-10-04 14:32 | ED.SKABFB ---
HPI - Skin/Abscess/Foreign Bdy General Chief complaint: Skin/Abscess/Foreign Body Stated complaint: Knot In Neck, Causing Headaches, Sent From [facility] Time Seen by Provider: 10/04/20 14:20 Source: patient Mode of arrival: Ambulatory Limitations: no limitations History of Present Illness HPI narrative: 40M nonsmoker without long medical history presents from the walk-in clinic for evaluation of a painful, red, warm nodule at the bases neck and concern for possible abscess. He denies any strong history of skin infections or use of IVDA. He denies any chest pain or shortness of breath. He has increased pain with range of motion and improvement with rest. He denies any blurred vision, trouble speech or numbness, tingling or weakness MD complaint: abscess/boil Onset (ago): day(s) Tetanus up to date: yes Location: neck Severity: mild Quality: aching Pain Consistency: constant Relieving factors: rest Exacerbating factors: movement Context: none Associated symptoms: denies other symptoms Treatments prior to arrival: none Related Data Home Medications Medication Instructions Recorded Confirmed Complete Multi 1 tab PO DAILY 09/27/18 06/25/19 acyclovir 200 mg PO DIRECTED PRN 09/27/18 06/25/19 cholecalciferol (vitamin D3) 1,000 unit PO DAILY 09/27/18 06/25/19 [Vitamin D3] lysine [L-Lysine] 2 tab PO PRN PRN 09/27/18 06/25/19 Berberine 1 dose PO DIRECTED PRN 04/07/19 06/25/19 esomeprazole magnesium 20 mg PO DAILY 04/07/19 06/25/19 metformin 850 mg PO DAILY 05/29/19 06/25/19 Previous Rx's Medication Instructions Recorded oxycodone See Rx Instructions .ROUTE 04/19/19 .COMPLEX PRN #14 tab docusate sodium 100 mg PO BID #20 cap 06/04/19 oxycodone 5 mg PO Q4H PRN #20 tab MDD 6 06/04/19 ciprofloxacin HCl 500 mg PO BID #20 tab 02/19/20 hydrocodone-acetaminophen 1 tab PO Q4-6H PRN #10 tab 02/19/20 metronidazole [Flagyl] 500 mg PO Q8H #30 tab 02/19/20 ondansetron 4 mg PO Q8H PRN #10 tab 02/19/20 doxycycline hyclate 100 mg PO BID #20 tab 10/04/20 Allergies Allergy/AdvReac Type Severity Reaction Status Date / Time No Known Drug Allergies Allergy Verified 06/25/19 09:39 Review of Systems Constitutional Constitutional: Denies chills, Denies fatigue, Denies fever(s), Denies frequent falls, Denies lethargy and Denies weakness Eyes Eyes: Denies change in vision, Denies eye discharge, Denies irritation and Denies loss of vision ENT Ears, Nose, Mouth, and Throat: Denies change in voice, Denies dizziness, Denies neck pain, Denies sore throat and Denies throat swelling Cardiovascular Cardiovascular: Denies chest pain, Denies irregular heart rhythm, Denies lightheadedness, Denies palpitations, Denies dyspnea, Denies dyspnea on exertion and Denies orthopnea Respiratory Respiratory: Denies cough, Denies dyspnea, Denies dyspnea on exertion and Denies wheezing Gastrointestinal Gastrointestinal: Denies abdominal pain, Denies change in bowel habits, Denies diarrhea, Denies nausea and Denies vomiting Musculoskeletal Musculoskeletal: Denies neck pain and Denies numbness Integumentary/Breasts Skin/Breast: Denies pruritus, Denies erythema, Denies rash, Reports skin pain, Reports skin swelling and Denies wounds Neurologic Neurologic: Denies behavioral changes, Denies confusion, Denies dizziness, Denies frequent falls, Denies loss of vision, Denies numbness and Denies weakness Psychiatric Psychiatric: Denies anxiety, Denies behavioral changes, Denies confusion, Denies depression, Denies homicidal ideation and Denies suicidal ideation Endocrine Endocrine: Denies fatigue, Denies flushing and Denies palpitations Hematologic/Lymphatic Hematologic/Lymphatic: Denies easy bruising Allergic/Immunologic Allergic/Immunologic: Denies urticaria, Denies throat swelling and Denies wheezing Patient History Medical History Cholecystitis without cholelithiasis Diverticulitis Gallstone pancreatitis (~03/2019) Hiatal hernia HTN (hypertension) Hydrocele Liver fibrosis NIDHI (obstructive sleep apnea) Vertigo Surgical History H/O hernia repair Status post cholecystectomy Social History household members: significant other Smoking Status: Never smoker alcohol intake: current Smoking Status: Never smoker alcohol intake frequency: a few times a month Substance Use Type: does not use Exam Narrative Exam Narrative: GEN: AOx3 and in mild distress EYES: Pupils are equal, round, and reactive to light and accommodation. Extraoccular muscles are intact bilaterally. There is no subconjunctival hemorrhage or exudate. CHEST: Lungs are clear to auscultation bilaterally and free of wheezes, rales, or rhonchi. Heart rate is regular rhythm, there are no murmurs, clicks, rubs, or gallops. There is no chest wall tenderness. ABD: Abdomen is soft and nontender. There is no guarding or rebound. Bowel sounds are normal in all 4 quadrants. There is no mass or organomegaly. EXT: Full painless ROM of all extremities with no loss of sensation or strength. SKIN: 2 x 2 cm area of induration at the base of the skull, midline over the upper cervical region. There is no fluctuance, there is no significant surrounding erythema, no obvious induration, depth is minimal, otherwise Warm, pink, and dry. No erythema or rash Initial Vital Signs Initial Vital Signs: Vital Signs Temperature 98.9 F 10/04/20 14:04 Pulse Rate 90 10/04/20 14:04 Respiratory Rate 20 10/04/20 14:04 Blood Pressure 161/95 H 10/04/20 14:04 Pulse Oximetry 97 10/04/20 14:04 Procedures Abscess I/D I&D #1: Site: neck Local Anesthetic: lidocaine 1% Technique: incised with #11 blade Amount of fluid expressed (mL): 2 Irrigation: No Packing used?: none Complications: other (Very small attempt at incision, minimal drainage, likely too early for abscess, just induration) Course Orders Ordered: Discontinued Medications Lidocaine/Epinephrine (Lidocaine 1% W/Epi) 1 ml SUBCUT NOW ONE Stop: 10/04/20 14:37 Last Admin: 10/04/20 14:39 Dose: 1 ml Documented by: FERDINAND Vital Signs Vital signs: Vital Signs - 8 hr 10/04/20 14:04 10/04/20 14:22 Temperature 98.9 F Pulse Rate 90 88 Respiratory Rate 20 20 Blood Pressure 161/95 H 146/88 H Pulse Oximetry 97 100 Discharge Plan Departure Patient Disposition: Home Clinical Impression: Cellulitis Qualifiers: Site of cellulitis: neck Qualified Code(s): L03.221 - Cellulitis of neck Abscess of skin or subcutaneous tissue Qualifiers: Site of cutaneous abscess: neck Qualified Code(s): L02.11 - Cutaneous abscess of neck Instructions: DI for Cellulitis -- Adult Activity Restrictions/Additional Instructions: *You have been diagnosed with [pain and swelling, likely infection ] *What to do: *Take medications as directed *Follow up with your primary care provider in 2-3 days, call for an appointment. Let them know you were seen in the Emergency Department and that we ask that you be seen in follow up *Return to ER if you should have any new, worsening or concerning symptoms, such as [increased pain, swelling, fever > 101F or other bothersome symptoms ] Prescriptions: New doxycycline hyclate 100 mg tablet 100 mg PO BID Qty: 20 RF: 0 No Action acyclovir 200 mg Capsule 200 mg PO DIRECTED PRN (Reason: breakouts) RF: 0 lysine [L-Lysine] 500 mg Tablet 2 tab PO PRN PRN (Reason: breakaout) RF: 0 cholecalciferol (vitamin D3) [Vitamin D3] 1,000 unit Capsule 1,000 unit PO DAILY RF: 0 Complete Multi [id number] Tablet 1 tab PO DAILY RF: 0 oxycodone 5 mg tablet See Rx Instructions .ROUTE .COMPLEX PRN (Reason: pain) Qty: 14 RF: 0 ciprofloxacin HCl 500 mg tablet 500 mg PO BID Qty: 20 RF: 0 metronidazole [Flagyl] 500 mg tablet 500 mg PO Q8H Qty: 30 RF: 0 hydrocodone-acetaminophen 5-325 mg tablet 1 tab PO Q4-6H PRN (Reason: pain) Qty: 10 RF: 0 ondansetron 4 mg tablet,disintegrating 4 mg PO Q8H PRN (Reason: nausea and vomiting) Qty: 10 RF: 0 esomeprazole magnesium 20 mg Tablet,Delayed Release (Dr/Ec) 20 mg PO DAILY RF: 0 Berberine 1 dose PO DIRECTED PRN (Reason: breakout) RF: 0 metformin 850 mg Tablet 850 mg PO DAILY RF: 0 oxycodone 5 mg tablet 5 mg PO Q4H MDD 6 PRN (Reason: pain) Qty: 20 RF: 0 docusate sodium 100 mg capsule 100 mg PO BID Qty: 20 RF: 0 Referrals: Dannielle Patton MD [Primary Care Provider] -
[2020-10-04] MEDS: LIDOCAINE 1% W/EPI 1 ML SUBCUT (14:39)
== END 2020-10-04 15:14 | disposition home or self-care (01) ==
PROVIDERS: Emergency Provider Emergency Medicine; PCP Student in an Organized Health Care Education/Training Program
DX: L03.221 Cellulitis of neck (principal); L02.11 Cutaneous abscess of neck
CPT/HCPCS: 10060; 99281; 99283

== ENCOUNTER → 2024-09-02 14:48 | Outpatient (CLI) | payer OTHER, SELFPAY ==
[2019-06-25 09:04] VITALS: BMI 31.5
--- NOTE | 2024-09-02 14:53 | DI.RAD.S_ITS ---
PROCEDURE: XR CERVICAL SPINE 2V OR 3V INDICATIONS: degenerative arthritis TECHNIQUE: Three-view (s) of the cervical spine were acquired. COMPARISON: None. FINDINGS: Bones: No osseous abnormality. Alignment: Normal in curvature and alignment. Discs: Mild C5-6 degenerative disc disease Soft tissues: No prevertebral soft tissue swelling. IMPRESSION: Mild C5-6 degenerative disc disease Dictated by: Gadiel Gonzalez M.D. on 09/03/2024 at 11:27 Approved by: Gadiel Gonzalez M.D. on 09/03/2024 at 11:28
--- NOTE | 2024-09-02 14:53 | DI.RAD.S_ITS ---
PROCEDURE: XR LUMBAR SPINE 2-3V INDICATIONS: lumbosacral spine degenerative arthritis TECHNIQUE: 3 views of the lumbar spine were acquired. COMPARISON: None. FINDINGS: Bones: No osseous abnormalities. Alignment: Normal in curvature and alignment. Disc: Moderate degenerative disc disease present [id number] T12-L1. Lumbar discs appear normal. Moderate L4-5 and L5-S1 degenerative facet disease Soft tissues: Overlying bowel gas pattern is normal. No suspicious soft tissue calcifications. IMPRESSION: Degeneration Dictated by: Gadiel Gonzalez M.D. on 09/03/2024 at 11:28 Approved by: Gadiel Gonzalez M.D. on 09/03/2024 at 11:29
[2024-09-02 16:52] LABS: Appearance Urine UA CLEAR; Bilirubin Urine UA NEGATIVE (NEGATIVE); Color Urine UA YELLOW; Glucose Urine UA 3+ g/dL (Negative); Ketones Urine UA 1+ (NEGATIVE); Leukocyte Esterase Urine UA NEGATIVE (NEGATIVE); Nitrite Urine UA NEGATIVE (Negative); Occult Blood Urine UA NEGATIVE (Negative); Protein Urine UA NEGATIVE (Negative); Urobilinogen Urine UA 0.2 E.U./dL (0.2)
[2024-09-02 16:58] LABS: Bacteria Urine None Seen; Culture Indicated Urine Cult Not Indicated; RBC Urine None Seen (0-5/HPF); Squamous Epithelial Cell Urine None Seen (0-5/HPF); Urine Volume 10mL (spun); WBC Urine None Seen (0-5/HPF)
[2024-09-03 01:07] LABS: HBsAg Screen Negative (Negative); Hepatitis A Antibody IgM Negative (Negative); Hepatitis B Core Antibody IgM Negative (Negative); Hepatitis C Antibody Non Reactive (Non Reactive)
== END ==
LOC: RESP 14:52
PROVIDERS: Referring Provider Chiropractor; Visit Provider Chiropractor
DX: J98.4 Other disorders of lung (principal); K73.9 Chronic hepatitis, unspecified; M47.817 Spondylosis without myelopathy or radiculopathy, lumbosacral region; M50.322 Other cervical disc degeneration at C5-C6 level; M51.369 Other intervertebral disc degeneration, lumbar region without mention of lumbar back pain or lower extremity pain
CPT/HCPCS: 36415; 72040; 72100; 80074; 81001; 94060